=== PATIENT | male | born 1970 | race Caucasian/White ===

== ENCOUNTER 2025-05-22 14:21 | Emergency (ER) | payer MEDICARE, SELFPAY ==
--- OUTSIDE RECORDS SUMMARY | 2025-04-14 13:40 | XMS_ITS | Encounter Summary ---
Author Organization [facility] Address [address] [facility] [place] [address] Care Team Providers Care Assistant Real Estate Manager Name Role Phone Cosme Wayne MD Unavailable [phone] Cosme Wayne MD Primary Care Provider + Deshawn Veloz MD Unavailable Deshawn Veloz MD Unavailable Mindy Harrison MD Unavailable Karine Rangel [facility] Unavailable [phone] Karine Rangel Nicolle Unavailable [phone] Devon Hernandez MD Unavailable [phone] Mary Trent PA-C Unavailable [phone] Cal Zelaya PA-C Unavailable [phone] Mary Trent PA-C Unavailable [phone] Cal Zelaya PA-C Unavailable [phone] Reason for Visit * Reason Comments Oncology Clinic Visit * Consultation (Routine: Next available opening) - Pending Review Specialty Diagnoses / Procedures Referred By Chidi harris Referred To Contact Medical Oncology Diagnoses Wernicke encephalopathy Bariatric surgery status Mary Trent PA-C [address] [facility] [address] [place] [address] Phone: tel: fax: Referral ID Status Reason Start Date Expiration Date V isits Requested Visits Authorized [id number] Pending Review 12/22/2024 12/22/2025 1 1 Encounter Details Date Type Department Care Team (Latest Contact Info) Description 04/14/2025 1:40 PM CDT Oncology Visit [facility] [place] [address], [address] [facility] [place] [phone] Mary Trent, PAAllisonC [address] [place] [address] Devon Hernandez MD [address] [place] [address] Anemia, unspecified type (Primary Dx); Wernicke encephalopathy; Bariatric surgery status; Hypomagnesemia Social History Tobacco Use Types Packs/Day Years Used Date Smoking Tobacco: Former Cigarettes 0.5 17 0 10/21/1982 - 10/21/1999 Smokeless Tobacco: Never Tobacco Cessation:Counseling Given: Not Answered Alcohol Use Standard Drinks/Week Comments Not Currently 0 (1 standard drink = 0.6 oz pur e alcohol) Quit begingin of 2024 Social Connection and Isolation Panel [NHANES] A nswer Date Recorded Frequency of Communication with Friends and Fami ly Not on file 12/04/2023 How often do you get togethe r with friends or relatives? Three times a week 12/04/2023 Attends U[employer] Services Not on file 12/04 Active Member of Clubs or Organizations Not on f ile 12/04/2023 Attends Club or Organization Meetings Not on abad e 12/04/2023 Marital Status Not on file 12/04/2023 PHQ-2 Answer Date Recorded PHQ-2 Score 2 02/11/2025 [facility] [place] of Occupat ional Health - Occupational Stress Questionnaire Answer Date Recorded Do you feel stress - tense, restless, nervous, or anxious, or unable to sleep at night because your mind is troubled all the time - these days? Only a little 12/04/2023 Exercise Vital Sign Answer Date Recorde d On average, how many days pe r week do you engage in moderate to strenuous exercise (like a brisk walk)? 1 day 12/04/2023 On average, how many minutes do you engage in exercise at this level? 10 min 12/04/2023 Adolescent Education Answer Date Record ed Getting School Help Needed Not on file 07/20 Food Insecurity Answer Date Recorded Within the past 12 months, d id you worry that your food would run out before you got money to buy more? No 11/29/2024 Within the past 12 months, d id the food you bought just not last and you didn t have money to get more? No 11/29/2024 Housing Stability Answer Date Recorded Do you have housing? (Elías g is defined as stable permanent housing and does not include staying outside in a car, in a tent, in an abandoned building, in an overnight half-way, or couch-surfing.) Yes 11/29/2024 Are you worried about losing your housing? No 11/29/2024 Financial Resource Strain Answer Date R ecorded Within the past 12 months, h ave you or your family members you live with been unable to get utilities (heat, electricity) when it was really needed? No 11/29/2024 Transportation Needs Answer Date Record ed Within the past 12 months, h as lack of transportation kept you from medical appointments, getting your medicines, non-medical meetings or appointments, work, or from getting things that you need? No 11/29/2024 Interpersonal Safety Answer Date Record ed Do you feel physically and e motionally safe where you currently live? Yes 11/29/2024 Within the past 12 months, h ave you been hit, slapped, kicked or otherwise physically hurt by someone? No 11/29/2024 Within the past 12 months, h ave you been humiliated or emotionally abused in other ways by your partner or ex-partner? No 11/29/2024 Sex and Gender Information Value Date Recorded Sex Assigned at Male 07/22/2021 2:30 PM CDT Legal Sex Male 3:12 AM SUPPLY REQUIREMENTS OFFICER Gender Identity Male 07/22/2021 2:30 PM CDT Sexual Orientation Straight 07/22/2021 2: 30 PM CDT documented as of this encounter Last Filed Vital Signs Vital Sign Reading Time Taken Comments Blood Pressure 135/92 04/14/2025 1:37 PM CDT Pulse 86 04/14/2025 1:37 PM CDT Temperature - - Respiratory Rate 16 04/14/2025 1:37 PM CDT Oxygen Saturation 97% 04/14/2025 1:37 PM CDT Inhaled Oxygen Concentration - - Weight 101.9 kg (224 lb 9.6 oz) 04/14/2025 1:37 PM CDT Height 182.9 cm (6') 04/14/2025 1:37 PM CDT Body Mass Index 30.46 04/14/2025 1:37 PM CDT documented in this encounter Patient Instructions * Patient Instructions* Devon Hernandez MD - 04/14/2025 1:40 PM CDT -Labs today. -Virtual visit in 1-2 weeks. documented in this encounter Progress Notes * Emely Tim MA - 04/14/2025 1:40 PM CDT Oncology Rooming Note April 14, 2025 1:39 PM Neri Zuñiga is a 54 year old male who presents for: Chief Complaint Patient presents with Oncology Clinic Visit Initial Vitals: BP (!) 135/92 Pulse 86 Resp 16 Ht 1.829 m (6') Wt 101.9 kg (224 lb 9.6 oz) SpO2 97% BMI 30.46 kg/m?? Estimated body mass index is 30.46 kg/m?? as calculated from the following: Height as of this encounter: 1.829 m (6'). Weight as of this encounter: 101.9 kg (224 lb 9.6 oz). Body surface area is 2.28 meters squared. No Pain (0) Comment: Data Unavailable No LMP for male patient. Allergies reviewed: Yes Medications reviewed: Yes Medications: Medication refills not needed today. Pharmacy name entered into [facility]: [id number] - [place], [place] - [address] [facility] [place] [address] Frailty Screening: Is the patient here for a new oncology consult visit in cancer care? 2. No PHQ9: Did this patient require a PHQ9?: No Emely Tim MA * Devon Hernandez MD - 04/14/2025 1:40 PM CDT This consult has been requested by Mary Trent PA-C for anemia. Mr. Zuñiga is a 54-year-old gentleman with multiple medical problems including hypertension, peripheral neuropathy and depression. Patient also has history of gastric bypass surgery. Patient has been having his labs monitored. He has been anemic for last few years. Investigations are reviewed and summarized below. 1. On 07/10/2017, hemoglobin of 11.6. Normal MCV. - Since then multiple CBC have revealed anemia. 2. On 12/17/2024: - Low iron of 59. Normal iron saturation index of 39%. - Elevated ferritin of 781. - Normal folate - Elevated vitamin B12 - Elevated vitamin B6 3. On 03/02/2025: - Hemoglobin mildly low at 11.3. Normal WBC and platelet. Normal MCV of 93. - CMP is essentially normal. Normal calcium and creatinine. Normal LFT. 4. CT abdomen and pelvis on 08/30/2024 revealed normal spleen. There is hepatic steatosis. Patient denies bleeding from any site. Patient has mild generalized weakness. He can do activities of daily living. He gets migraine headaches. Occasional dizziness. No chest pain. No shortness of breath at rest. Noabdominal pain. No nausea or vomiting. No urinary or bowel complaints. Patient has peripheral neuropathy. He also has restless leg. He follows up with neurologist. Allergies: Reviewed. Medications: Reviewed. Past medical history: - Peripheral neuropathy - Restless leg syndrome - Depression - Esophageal reflux - Hypertension - Migraine headaches. - Warnicke encephalopathy - Osteoarthritis - C-spine surgery - Gastric bypass surgery. - GERD - Shoulder surgery - Hepatic steatosis. Social history: - He quit alcohol in November 2024. Exam: He is alert and oriented x 3. Not in any distress. Vitals: Reviewed Rest of system not examined. Labs: Reviewed. Assessment: 1. A 54-year-old gentleman with mild chronic normocytic anemia. 2. Multiple other medical problems including peripheral neuropathy, hypertension and depression. Recommendation: - Labs today. - Continue with multivitamin - Virtual visit in 1 to 2 weeks. Discussion: 1. Labs were reviewed with the patient. Patient has chronic normocytic anemia. Different causes of normocytic anemia reviewed. It can be seen with blood loss, renal disease, anemia of chronic diseaseor developing myelodysplastic syndrome. Patient denies any bleeding. He does not have renal disease. He does have multiple medical problems which can cause anemia of chronic disease. Patient had gastric bypass surgery. Because of that, he is at risk of malabsorption which can causeanemia. Patient is on multivitamin and other supplements. Patient was an alcoholic. He quit alcohol in November 2024. Heavy alcohol use also causes anemia. 2. Complications of anemia reviewed. Explained to the patient that his anemia is mild and should not cause any problem. 3. Discussed regarding further workup. Will get some labs today. If he has iron deficiency, will consider GI workup. At this time, no need for any bone marrow biopsy. If his anemia progressively getsworse and hemoglobin consistently remains below 10, bone marrow biopsy will be considered to rule out MDS. 4. He and his had few questions which were all answered. I will see him in next 1 to 2 weeks to review the labs. Thanks for the consult. Total visit time of 45 minutes. Time spent in today's visit, review of chart/investigations today and documentation today. documented in this encounter Plan of Treatment Upcoming Encounters Date Type Department Care Team (Late st Contact Info) Description 05/28/2025 1:40 PM CDT Therapy Visit [facility] [id number] [place] [address] [address] [place] [phone] Mary Trent PA-C [address] [place], [place] [address] [place] [address] [facility] [address] [place], [place] [address] 06/04/2025 1:40 PM CDT Therapy Visit [place] [id number] [facility] [address] [place] [phone] Mary Trent PA-C [address] [place] [address] [place] [address] [place] [id number] 07/01/2025 10:30 AM CDT Virtual Visit [facility] [place] [address] [facility] [address] [place] [phone] Mary Trent PA-C [address] [place] [id number] 07/01/2025 11:00 AM CDT Virtual Visit [facility] [place] [address] [facility] [address] [place] [phone] Christina Paz, RD, [place] [address] [place] [id number] 09/20/2025 10:00 AM SUPPLY REQUIREMENTS OFFICER Office Visit [facility] - [place] [address] [facility], [address] [place] [phone] Deshawn Veloz MD [address] [place] [address] documented as of this encounter Procedures Procedure Name Priority Date/Time Associated Diagnosis Comments BLOOD MORPHOLOGY PATHOLOGIST REVIEW Routine 04/14/2025 2:29 PM CDT Anemia, unspecified type MORPHOLOGY TRACKING Routine 04/14/2025 2 :28 PM CDT Anemia, unspecified type BLOOD MORPHOLOGY PATHOLOGIST REVIEW Routine 04/14/2025 2:28 PM CDT Anemia, unspecified type CBC WITH PLATELETS AND DIFFERENTIAL Routine 04/14/2025 2:28 PM CDT Anemia, unspecified type LACTATE DEHYDROGENASE Routine 04/14/2025 2:28 PM CDT Anemia, unspecified type SOLUBLE TRANSFERRIN RECEPTOR Routine 04/14/2025 2:28 PM CDT Anemia, unspecified type RETICULOCYTE COUNT Routine 04/14/2025 2: 28 PM CDT Anemia, unspecified type MAGNESIUM Add-On 04/14/2025 2:28 PM CDT Anemia, unspecified type Hypomagnesemia IRON AND IRON BINDING CAPACITY Routine 04/14/2025 2:28 PM CDT Anemia, unspecified type HAPTOGLOBIN Routine 04/14/2025 2:28 PM CDT Anemia, unspecified type FERRITIN Routine 04/14/2025 2:28 PM CDT Anemia, unspecified type documented in this encounter Results * Bld morphology pathology review (04/14/2025 2:29 PM CDT) Final Diagnosis Slight anemia, normochromic normocytic. 04/15/2025 3:12 PM [facility] at 1512 CDT Clinical Information Anemia 04/15/2025 3:12 PM [facility] Peripheral Smear The red blood cells appear normochromic. Rouleaux formation does not appear increased. Polychromasia does not appear increased. Poikilocytosis appears mild and nonspecific. Platelets are well granulated. Lymphocytes are predominantly small with cytologically mature chromatin and appear overall polymorphous. Neutrophils contain normal cytoplasmic granulation and unremarkable nuclear morphology. There is no dysplasia and no circulating blasts are seen. 04/15/2025 3:12 PM [facility] Peripheral Hematologic Data Latest Reference Range & Units 04/14/25 14:28 WBC 4.0 - 11.0 10e3/uL 6.6 Hemoglobin 13.3 - 17.7 g/dL 12.4 (L) Hematocrit 40.0 - 53.0 % 37.7 (L) Platelet Count 150 - 450 10e3/uL 207 RBC Count 4.40 - 5.90 10e6/uL 4.07 (L) MCV 78 - 100 fL 93 MCH 26.5 - 33.0 pg 30.5 MCHC 31.5 - 36.5 g/dL 32.9 RDW 10.0 - 15.0 % 14.2 % Neutrophils % 63 % Lymphocytes % 19 % Monocytes % 12 % Eosinophils % 4 % Basophils % 2 % Immature Granulocytes % 0 NRBC/W <1 /100 0 Absolute Neutrophil 1.6 - 8.3 10e3/uL 4.2 Absolute Lymphocytes 0.8 - 5.3 10e3/uL 1.3 Absolute Monocytes 0.0 - 1.3 10e3/uL 0.8 Absolute Eosinophils 0.0 - 0.7 10e3/uL 0.2 Absolute Basophils 0.0 - 0.2 10e3/uL 0.1 Absolute Immature Granulocytes <=0.4 10e3/uL 0.0 Absolute NRBCs 10e3/uL 0.0 % Retic 0.5 - 2.0 % 1.4 Absolute Retic 0.025 - 0.095 10e6/uL 0.057 (L): Data is abnormally low 04/15/2025 3:12 PM [facility] Performing Labs The technical component of this testing was completed at [facility], [facility] and [facility] 04/15/2025 3:12 PM [facility] Blood STRUCTURE OF LEFT UPPER LIMB / Unknown Venipuncture / Unknown 04/14/2025 2:29 PM CDT 04/14/2025 2:36 PM T Comment:CBC with platelets d ifferential and Reticulocyte count should be ordered concurrently with the peripheral smear (all tests performed on the same tube of blood). The concurrent CBC with platelets differential and Reticulocyte count are incorporated into the final peripheral smear report and are necessary for interpretation. us Birendra Hernandez MD LAB - BEAKER AP Final Result [facility] Pathology Lab [address] Lab (1st floor, no room number) [place] [address] * Magnesium (04/14/2025 2:28 PM CDT) Magnesium 1.8 1.7 - 2.3 mg/dL 04/14/2025 3:13 PM CDT LABORATORY Blood STRUCTURE OF LEFT UPPER LIMB / Unknown Venipuncture / Unknown 04/14/2025 2:28 PM CDT 04/14/2025 2:36 PM CDT Devon Hernandez MD LAB - BLOOD ORDERABLES Final R esult LABORATORY [facility] [address] 1[address] floor, [address] [place] [address], [facility] [phone] * Morphology Tracking (04/14/2025 2:28 PM CDT) Blood STRUCTURE OF LEFT UPPER LIMB / Unknown Venipuncture / Unknown 04/14/2025 2:28 PM CDT 04/14/2025 2:36 PM CDT Devon Hernandez MD LAB - BLOOD ORDERABLES Final R esult LABORATORY [facility] [address] 1[address] floor, [address] [place] [address], [facility] [phone] * Reticulocyte count (04/14/2025 2:28 PM CDT) % Reticulocyte 1.4 0.5 - 2.0 % 04/14/2025 2:39 PM CDT LABORATORY Absolute Reticulocyte 0.057 0.025 - 0.095 10e6/uL 04/14/2025 2:39 PM CDT LABORATORY Blood STRUCTURE OF LEFT UPPER LIMB / Unknown Venipuncture / Unknown 04/14/2025 2:28 PM CDT 04/14/2025 2:36 PM CDT us Devon Hernandez MD LAB - BLOOD ORDERABLES Final R esult LABORATORY [facility] [address] 1[address] floor, [address] [place] [address], [facility] [phone] * (ABNORMAL) CBC with platelets and differential (04/14/2025 2:28 PM CDT) WBC Count 6.6 4.0 - 11.0 10e3/uL 04/14/2025 2:39 PM CDT LABORATORY RBC Count 4.07(L) 4.40 - 5.90 10e6/uL 04/14/2025 2:39 PM CDT LABORATORY Hemoglobin 12.4(L) 13.3 - 17.7 g/dL 04/14/2025 2:39 PM CDT LABORATORY Hematocrit 37.7(L) 40.0 - 53.0 % 04/14/2025 2:39 PM CDT LABORATORY MCV 93 78 - 100 fL 04/14/2025 2:39 PM CDT LABORATORY MCH 30.5 26.5 - 33.0 pg 04/14/2025 2:39 PM CDT LABORATORY MCHC 32.9 31.5 - 36.5 g/dL 04/14/2025 2:39 PM CDT LABORATORY RDW 14.2 10.0 - 15.0 % 04/14/2025 2:39 PM CDT LABORATORY Platelet Count 207 150 - 450 10e3/uL 04/14/2025 2:39 PM CDT LABORATORY % Neutrophils 63 % 04/14/2025 2:39 PM CDT LABORATORY % Lymphocytes 19 % 04/14/2025 2:39 PM CDT LABORATORY % Monocytes 12 % 04/14/2025 2:39 PM CDT LABORATORY % Eosinophils 4 % 04/14/2025 2:39 PM CDT LABORATORY % Basophils 2 % 04/14/2025 2:39 PM CDT LABORATORY % Immature Granulocytes 0 % 04/14/2025 2:39 PM CDT LABORATORY NRBCs per 100 WBC 0 <1 /100 025 2:39 PM CDT LABORATORY Absolute Neutrophils 4.2 1.6 - 8.3 10e3/uL 04/14/2025 2:39 PM CDT LABORATORY Absolute Lymphocytes 1.3 0.8 - 5.3 10e3/uL 04/14/2025 2:39 PM CDT LABORATORY Absolute Monocytes 0.8 0.0 - 1.3 10e3/uL 04/14/2025 2:39 PM CDT LABORATORY Absolute Eosinophils 0.2 0.0 - 0.7 10e3/uL 04/14/2025 2:39 PM CDT LABORATORY Absolute Basophils 0.1 0.0 - 0.2 10e3/uL 04/14/2025 2:39 PM CDT LABORATORY Absolute Immature Granulocytes 0.0 <=0.4 10e3/uL 04/14/2025 2:39 PM CDT LABORATORY Absolute NRBCs 0.0 10e3/uL 04/14/2025 2:39 PM CDT LABORATORY Blood STRUCTURE OF LEFT UPPER LIMB / Unknown Venipuncture / Unknown 04/14/2025 2:28 PM CDT 04/14/2025 2:36 PM CDT us Devon Hernandez MD LAB - BLOOD ORDERABLES Final R esult LABORATORY [facility] [address] 1[address] floor, [address] [place] [address], [facility] [phone] * Lactate Dehydrogenase (04/14/2025 2:28 PM CDT) Lactate Dehydrogenase 166 0 - 250 U/L 04/14/2025 3:13 PM CDT LABORATORY Blood STRUCTURE OF LEFT UPPER LIMB / Unknown Venipuncture / Unknown 04/14/2025 2:28 PM CDT 04/14/2025 2:36 PM CDT us Devon Hernandez MD LAB - BLOOD ORDERABLES Final R esult LABORATORY [facility] [address], [address] [place] [address], [facility] [phone] * Haptoglobin (04/14/2025 2:28 PM CDT) Haptoglobin 165 30 - 200 mg/dL 04/14/2025 6:03 PM CDT U LABORATORY Blood STRUCTURE OF LEFT UPPER LIMB / Unknown Venipuncture / Unknown 04/14/2025 2:28 PM CDT 04/14/2025 2:36 PM CDT Devon Hernandez MD LAB - BLOOD ORDERABLES Final R esult U LABORATORY [facility] [address] [facility], [address] [place] [address], [facility] * Soluble transferrin receptor (04/14/2025 2:28 PM CDT) Soluble Transferrin Receptor 3.4 2.2 - 5.0 mg/L 04/16/2025 1:40 PM CDT [facility] Comment: INTERPRETIVE INFORMATION: Soluble Transferrin Receptor People of descent and those residing at 5200 feet (1600 meters) above sea level were found to have a 6% higher normal value. These differences were additive. Reference intervals have not been established for females, patients under 18 years of age, and recent or frequent blood donors. Serum soluble transferrin receptor increases in iron deficiency and is usually unaffected by chronic disease states. In general, to increase sensitivity and specificity, the measurement of serum soluble transferrin receptor should be performed in combination with other tests of iron status, including ferritin, TIBC, and serum iron. (See Table Below). Tests for Iron Anemia of Combined Iron Changes Def. Chronic Def. and anemia Analyte in: Anemia Disease of Chronic Dz ------- -------- ------ --------- Ferritin Fe Stores Low High Normal or High TIBC Fe Status High Low Normal or High Serum Fe Fe Status Low Low Low sTfR Fe Status High Normal High Performed By: [employer] [address] [place] [address] Petroleum Inspector: Ryan Pretty MD, PhD CLIA Number: [id number] Blood STRUCTURE OF LEFT UPPER LIMB / Unknown Venipuncture / Unknown 04/14/2025 2:28 PM CDT 04/14/2025 2:36 PM CDT Devon Hernandez MD LAB - BLOOD ORDERABLES Final R esult [employer] [address] [place] [phone], [facility] [phone] * Ferritin (04/14/2025 2:28 PM CDT) Ferritin 304 31 - 409 ng/mL 04/14/2025 6:12 PM CDT LABORATORY Blood STRUCTURE OF LEFT UPPER LIMB / Unknown Venipuncture / Unknown 04/14/2025 2:28 PM CDT 04/14/2025 2:36 PM CDT Devon Hernandez MD LAB - BLOOD ORDERABLES Final R esult LABORATORY [facility] [address] [facility], [address] [phone] * (ABNORMAL) Iron and iron binding capacity (04/14/2025 2:28 PM CDT) Iron 140 61 - 157 ug/dL 04/14/2025 3:13 PM CDT LABORATORY Iron Binding Capacity 251 240 - 430 ug/dL 04/14/2025 3:13 PM CDT LABORATORY Iron Sat Index 56(H) 15 - 46 % 04/14/2025 3:13 PM CDT LABORATORY Blood STRUCTURE OF LEFT UPPER LIMB / Unknown Venipuncture / Unknown 04/14/2025 2:28 PM CDT 04/14/2025 2:36 PM CDT us Devon Hernandez MD LAB - BLOOD ORDERABLES Final R esult [facility] [address] floor, [address] [place] [address], [facility] [phone] documented in this encounter Visit Diagnoses Diagnosis Anemia, unspecified type- Primary Wernicke encephalopathy Other and unspecified manifestations of thiamine deficiency Bariatric surgery status Hypomagnesemia Disorders of magnesium metabolism documented in this encounter Additional Health Concerns Assessment Noted Time PHQ-9 Depression Total Score: 8 02/12/20 8:47 AM CDT documented as of this encounter Care Teams Assistant Real Estate Manager Relationship Specialty Start Date End Date Cosme Wayne MD [address] [place] [address] PCP - General Internal Medicine 08/27/22 Cosme Wayne MD [address] [place] [address] Assigned PCP 08/13/21 Deshawn Veloz MD [address] [address] Neurology 09/24/22 Deshawn Veloz MD [address] [place] [address] Assigned Neuroscience Provider 10/13/22 Mindy Harrison MD [address] [address] Nephrology 04/22/23 Karine Rangel, [facility] [address] [place] [address] Pharmacist Pharmacist Fence Gate Assembler 09/07/24 Karine Rangel RPH [address] [place] [address] Assigned MTM Pharmacist 09/12/24 Devon Hernandez MD [address] [place] [id number] Hematology & Oncology 12/23/24 Mary Trent PA-C [address] [place] [address] Physician Crane Crew Supervisor Bariatric 12/23/24 Cal Zelaya PA-C [address] [place], [place] [address] Physician Crane Crew Supervisor Gastroenterology 12/28/24 Mary Trent PA-C [address] [place] [id number] Assigned Surgical Provider 01/10/25 Cal Zelaya PA-C [address] [place], [place] [address] Assigned Gastroenterology Provider 03/12/25 documented as of this encounter
--- OUTSIDE RECORDS SUMMARY | 2025-04-30 09:00 | XMS_ITS | Encounter Summary ---
Author Organization [facility] Address [address] [place] [address] Care Team Providers Care Operating Room Assistant Name Role Phone Cosme Wayne MD Unavailable [phone] Cosme Wayne MD Primary Care Provider + Deshawn Veloz MD Unavailable Deshawn Veloz MD Unavailable Mindy Harrison MD Unavailable Karine Rangel [facility] Unavailable [phone] Karine Rangel Nicolle Unavailable [phone] Devon Hernandez MD Unavailable [phone] Mary Trent-C Unavailable [phone] Cal Zelaya-Baldemar Unavailable [phone] Mary Trent-Baldemar Unavailable [phone] Cal Zelaya-Baldemar Unavailable [phone] Reason for Referral * Rehab Therapy Physical Therapy (Routine: Next available opening) - Authorized Specialty Diagnoses / Procedures Referred By Chidi harris Referred To Contact Physical Therapy Diagnoses Class 1 obesity with serious comorbidity and body mass index (BMI) of 30.0 to 30.9 in adult, unspecified obesity type [address] [address] Phone: tel: Referral ID Status Reason Start Date Expiration Date V isits Requested Visits Authorized [id number] Authorized 05/07/2025 07/16/2025 8 8 Question Answer Course of Action: Evaluation and Treatment Specialty Services: Get Moving Program Patient Scheduling Instructions: [facility] will call you to coordinate your care as prescribed by your provider. If you don't hear from a international representative within 2 business days, please call . Comments Please be aware that coverage of these services is subject to the terms and limitations of your health insurance plan. Call member services at your health plan with any benefit or coverage questions. [facility] will call you to coordinate your care as prescribed by your provider. If you don't hear from a international representative within 2 business days, please call . Reason for Visit * Reason Comments RECHECK Encounter Details Date Type Department Care Team (Late st Contact Info) Description 04/30/2025 9:00 AM CDT Office Visit [facility] [address] [phone] Mary Trent PA-C [address] [place] [address] [id number] Class 1 obesity without serious comorbidity with body mass index (BMI) of 30.0 to 30.9 in adult, unspecified obesity type (Primary Dx) Social History Tobacco Use Types Packs/Day Years Used Date Smoking Tobacco: Former Cigarettes 0.5 17 0 10/21/1982 - 10/21/1999 Smokeless Tobacco: Never Alcohol Use Standard Drinks/Week Comments Not Currently 0 (1 standard drink = 0.6 oz pur e alcohol) Quit begingin of 2024 Social Connection and Isolation Panel [NHANES] A nswer Date Recorded Frequency of Communication with Friends and Fami ly Not on file 12/04/2023 How often do you get togethe r with friends or relatives? Three times a week 12/04/2023 Attends [employer] Services Not on file 12/04 Active Member of Clubs or Organizations Not on f ile 12/04/2023 Attends Club or Organization Meetings Not on abad e 12/04/2023 Marital Status Not on file 12/04/2023 PHQ-2 Answer Date Recorded PHQ-2 Score 2 02/11/2025 [facility] [place] of Occupat ional Health - Occupational Stress [...] Answer Date Recorded Do you have housing? 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 Gender Identity Male 07/22/2021 2:30 PM CDT Sexual Orientation Straight 07/22/2021 2: 30 PM CDT documented as of this encounter Last Filed Vital Signs Vital Sign Reading Time Taken Comments Blood Pressure 125/84 04/30/2025 8:53 AM CDT Pulse 54 04/30/2025 8:53 AM CDT Temperature - - Respiratory Rate - - Oxygen Saturation 91% 04/30/2025 8:53 AM CDT Inhaled Oxygen Concentration - - Weight 101.5 kg (223 lb 12.8 oz) 04/30/2025 8:53 AM CDT Height 182.9 cm (6') 04/30/2025 8:53 AM CDT Body Mass Index 30.35 04/30/2025 8:53 AM CDT documented in this encounter Patient Instructions * Patient Instructions* Mary Trent PA-C - 04/30/2025 9:00 AM CDT Nice to talk with you today. Below is the plan discussed.- Mary Trent PA-C Pt Instructions: Follow-up with dietitian team to continue working on eating patterns. Get Moving referral placed - they will call you to schedule. Start Naltrexone. Directions: Take 1/2 tab in the am for a week. If tolerating, increase to 1/2 tablet twice daily. 4. Repeat liver tests 1-2 months after starting naltrexone. Labs ordered. Please call [phone] to set up a lab appt. 5. Continue 1000 mg metformin daily with food. 6. Work closely with the dietitians for eating patterns. Goals: Focus on healthy food choices - prioritizing protein and veggies in your meals. I recommend eating every 4-6 hours to reduce the risk of low blood sugars and try to minimize snacking between meals. Stay well hydrated though the day as well. Great job with exercising - please continue to invest in yourself with regular exercise. Continue to strive for a range for 150-300 minutes of exercise for weight maintenance and incorporating strength training twice-three times a week to help preserve muscle! Follow up: Call [phone] to schedule next visit in next available in 2-4 months with me - if unable to getin earlier see TONYA Gibson in 2 months. Be in touch on Mychart for refills/concerns between visits Strength Training Strength training is exercise that involves your own body weight or equipment to build muscle, endurance, and strength. Increasing muscle helps increase your metabolism. Cernium for Strength training [email or web address] Muscle Conditionin Exercises Resistance Training with Free Weights: 3 Exercises Resistance Training with Surgical Tubin Exercises Seated Exercises for Arms and Legs: 11 Exercises Stretchin Exercises Additional Outside Sources No Equipment Home Exercise Lists from [facility] [employer] https://www.CounterTack.[employer]/public/upload/files/general/[email or web address]_FV_CK_GbNvgo_Irnyrf ts_Strength.pdf Strength training YouTube workouts https://www.BNY Mellon.com/user/KozakSportsPerform Guide to Beginning Strength Training https://www.Neon Mobile.com/fitness/[email or web address]/rhlikranw-rpryt-swbsjp-training/ Naltrexone Naltrexone is a medication that is used most often to help people who are troubled by dependence onprescription pain killers or alcohol. It has also been found to help with weight loss. Although it's not currently FDA approved for weight loss, it has been used safely for a number of years to help people who are carrying extra weight. Just how Naltrexone helps with weight loss has not been exactly determined. It seems to work by quieting down brain signals related to strong food cravings. Many of our patients use the word addiction to describe their feelings and constant thoughts about food. It makes sense then to treat the feeling of dependence on food, outside of real hunger, with a medication designed to help with other sorts of dependence. Our patients on Naltrexone find that they: >feel less interest in food >think less about food and eating and have more time to think of other things >find it easier to push the plate away >have an easier time eating less For some of our patients, these feelings are very immediate. Other patients, don't feel much of a change but find they've lost weight. Like all weight loss medications, Naltrexone works best when youhelp it work. This means: 1. Having less tempting high calorie (fattening) food around the house or office. (For people with strong cravings this is very important.) 2. Staying away from situations or people that may trigger your cravings . 3. Eating out only one time or less each week. 4. Eating your meals at a table with the TV or computer off. Side-effects. Naltrexone is generally well tolerated. The main side-effect we see is nausea or a woozy feeling. A small number of people feel quite ill. Most people have a mild reaction and some people have no reaction at all. The good news is that this feeling does go away. In order to avoid nausea, please start the medication with half a pill for the first few days. Go on to a full pill if you are feeling well. If you are nauseated on 1/2 a pill it is okay to cut back to 1/4 pill ( a very small amount). Take this for a couple of days and work your way back up to a 1/2 pill and then a whole pill. Taking the medication at night or with food to start also may help prevent the feeling of nausea. WARNING: This medication blocks the action of opioid type pain medications. If you routinely take narcotic pain medication like Codeine, Oxycontin,Percocet,Morphine,Dilaudid or Methodone, do not take this until you have talked with weight management staff. 2. If you are planning surgery you should stop Naltrexone 4 days prior to the surgery. 3. If you have an injury that requires pain medication, make sure the health care staff knows you take Naltrexone. For any questions/concerns contact [facility] [phone] documented in this encounter Progress Notes * Mary Trent PA-C - 04/30/2025 9:00 AM CDT 04/30/2025 Return Medical Weight Management Note Neri Zuñiga : 1970 Assessment & Plan Problem List Items Addressed This Visit Class 1 obesity without serious comorbidity and body mass index (BMI) of 30.0 to 30.9 in adult, unspecified obesity type - Primary Relevant Medications naltrexone (DEPADE/REVIA) 50 MG tablet AOM Considerations notes, ROS needed per agent if pursued : Phentermine: reduced seizure threshold/hx EtOH dependency/mental health change considerations Topiramate: 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 02/2025 recommended PCP/surg f/up for gallstones. He reports vomiting w/prior use - but also using alcoholat that time so unclear if related Naltrexone: no significant interactions seens at this time - reviewed off label addition 04/2025 including narcotic considerations and liver monitoring and pt agreeable. Wellbutrin: avoid w/hx of EtOH use Metformin: using currently Contrave: Qsymia: PATIENT INSTRUCTIONS: Pt Instructions: Follow-up with dietitian team to continue working on eating patterns. Get Moving referral placed - they will call you to schedule. Start Naltrexone. Directions: Take 1/2 tab in the am for a week. If tolerating, increase to 1/2 tablet twice daily. 4. Repeat liver tests 1-2 months after starting naltrexone. Labs ordered. Please call [phone] to set up a lab appt. 5. Continue 1000 mg metformin daily with food. 6. Work closely with the dietitians for eating patterns. Goals: Focus on healthy food choices - prioritizing protein and veggies in your meals. I recommend eating every 4-6 hours to reduce the risk of low blood sugars and try to minimize snacking between meals. Stay well hydrated though the day as well. Great job with exercising - please continue to invest in yourself with regular exercise. Continue to strive for a range for 150-300 minutes of exercise for weight maintenance and incorporating strength training twice-three times a week to help preserve muscle! Follow up: Call [phone] to schedule next visit in next available in 2-4 months with me - if unable to getin earlier see MTM pharmD in 2 months. Be in touch on Mychart for refills/concerns between visits 34 minutes spent on the date of the encounter doing chart review, history and exam, result review, counseling, developing plan of care, documentation, and further activities as noted The longitudinal plan of care for the diagnosis(es)/condition(s) as documented were addressed during this visit. Due to the added complexity in care, I will continue to support Tony in the subsequentmanagement and with ongoing continuity of care. INTERVAL HISTORY: Tony returns for medical weight management follow up. Last seen on 01/06/25 w/myself and plan for continuing metformin. Plan to continue vitamins w/lab monitoring and working with RD team. 02/09/24 MTM continue 1,000 mg metformin and vitamins. From December visit: [facility] Bariatric vitamin with 18 mg iron-AM 600 mg calcium -BID - 6 AM/ 6 PM 1000 mcg Vitamin B-12 100 mg vitamin b-1 daily from PCP Folate from PCP magnesium glycinate up to 400 mg After labs added magnesium glycinate up to 400 mg - 04/14/25 magnesium WNL He is staying off alcohol - states no cravings and doing well there. Eating patterns: Getting up 9-10 am. Can be variable when to start eating. Usually eating twice daily. Ham/turkey sudanese cheese and some chips or sometimes cheddar. When at [employer] will have eggs in the mornings. Some veggies when at [employer]. [employer] does a special program to reverse diabetes. Personal goal would be getting down to 200 lbs or 210 lbs. Not doing any exercising/strength training right now - hard with feet/neuropathy. Helping out with [facility] in [place]. WEIGHT METRICS: Body mass index is 30.35 kg/m??. Current Weight: 223 lb 12.8 oz (101.5 kg) Last Visits Weight: 224 lb 9.6 oz (101.9 kg) Initial Weight (lbs): 246 lbs (updated starting weight for start of program in 2023) Cumulative weight loss (lbs): 22.2 Weight Loss Percentage: 9.02% Wt Readings from Last 10 Encounters: 04/30/25 223 lb 12.8 oz (101.5 kg) 04/14/25 224 lb 9.6 oz (101.9 kg) 03/02/25 226 lb 9.6 oz (102.8 kg) 02/11/25 231 lb (104.8 kg) 02/08/25 222 lb (100.7 kg) 01/31/25 227 lb 11.8 oz (103.3 kg) 01/31/25 227 lb 8 oz (103.2 kg) 01/12/25 224 lb 12.8 oz (102 kg) 01/06/25 215 lb (97.5 kg) 12/17/24 233 lb 14.4 oz (106.1 kg) 04/29/2025 5:23 PM Weight Loss Medication History Reviewed With Patient Which weight loss medications are you currently taking on a regular basis? Metformin Are you having any side effects from the weight loss medication that we have prescribed you? No 04/29/2025 5:23 PM Changes and Difficulties I have made the following changes to my diet since my last visit: Eating more times per day With regards to my diet, I am still struggling with: Nothing I have made the following changes to my activity/exercise since my last visit: None With regards to my activity/exercise, I am still struggling with: Feet LABS: Hemoglobin A1C Date Value Ref Range Status 07/13/2024 4.7 0.0 - 5.6 % Final Comment: Normal <5.7% Prediabetes 5.7-6.4% Diabetes 6.5% or higher Note: Adopted from ADA consensus guidelines. Creatinine Date Value Ref Range Status 03/02/2025 0.93 0.67 - 1.17 mg/dL Final 12/14/2019 0.83 0.66 - 1.25 mg/dL Final GFR Estimate Date Value Ref Range Status 03/02/2025 >90 >60 mL/min/1.73m2 Final Comment: eGFR calculated using 2020 CKD-EPI equation. 12/14/2019 89 >60 mL/min/[1.73_m2] Final Carbon Dioxide Date Value Ref Range Status 12/14/2019 21 20 - 32 mmol/L Final Carbon Dioxide (CO2) Date Value Ref Range Status 03/02/2025 28 22 - 29 mmol/L Final 08/29/2022 29 20 - 32 mmol/L Final Chloride Date Value Ref Range Status 03/02/2025 105 98 - 107 mmol/L Final 08/29/2022 92 (L) 94 - 109 mmol/L Final 12/14/2019 109 94 - 109 mmol/L Final Urea Nitrogen Date Value Ref Range Status 03/02/2025 11.0 6.0 - 20.0 mg/dL Final 08/29/2022 7 7 - 30 mg/dL Final 12/14/2019 11 7 - 30 mg/dL Final ALT Date Value Ref Range Status 03/02/2025 14 0 - 70 U/L Final 12/14/2019 31 0 - 70 U/L Final AST Date Value Ref Range Status 03/02/2025 24 0 - 45 U/L Final 12/14/2019 29 0 - 45 U/L Final Vitamin D Deficiency screening Date Value Ref Range Status 07/12/2017 17 (L) 20 - 75 ug/L Final Comment: Season, race, dietary intake, and treatment affect the concentration of 76-qoyobqs-Dfqetet D. Values may decrease during winter months and increase during summer months. Values 20-29 ug/L may indicate Vitamin D insufficiency and values <20 ug/L may indicate Vitamin D deficiency. Vitamin D determination is routinely performed by an immunoassay specific for 25 hydroxyvitamin D3. If an individual is on vitamin D2 (ergocalciferol) supplementation, please specify 25 OH vitamin D2 and D3 level determination by LCMSMS test VITD23. Vitamin D, Total (25-Hydroxy) Date Value Ref Range Status 12/17/2024 77 (H) 20 - 50 ng/mL Final Comment: indicates supplementation, with increased risk of hypercalciuria 08/24/2022 23 20 - 75 ug/L Final TSH Date Value Ref Range Status 11/28/2024 5.79 (H) 0.30 - 4.20 uIU/mL Final 08/24/2022 1.88 0.40 - 4.00 mU/L Final 09/01/2009 2.79 0.4 - 5.0 mU/L Final BP Readings from Last 6 Encounters: 04/30/25 125/84 04/14/25 (!) 135/92 03/09/25 116/78 03/02/25 123/85 02/11/25 138/89 01/31/25 119/84 Pulse Readings from Last 6 Encounters: 04/30/25 54 04/14/25 86 03/09/25 110 03/02/25 70 02/11/25 83 01/31/25 81 PE: BP 125/84 Pulse 54 Ht 6' (1.829 m) Wt 223 lb 12.8 oz (101.5 kg) SpO2 (!) 91% BMI 30.35 kg/m?? GENERAL: Healthy, alert and no distress EYES: Eyes grossly normal to inspection. RESP: No audible wheeze, cough, or visible cyanosis. No increased work of breathing. SKIN: Visible skin clear. No significant rash, abnormal pigmentation or lesions. NEURO: Mentation and speech appropriate for age. PSYCH: Mentation appears normal, affect normal/bright, judgement and insight intact, normal speech and appearance well-groomed. Sincerely, Mary Trent PA-C documented in this encounter Miscellaneous Notes * Assessment & Plan Note - Mary Trent PA-C - 04/30/2025 10:38 AM CDT Associated Problem(s): Class 1 obesity without serious comorbidity with body mass index (BMI) of 30.0 to 30.9 in adult, unspecified obesity type Maintaining weight. Recommend really continue to work on eating patterns - three meals daily and adding in veggies. Recommend seeing RD for this. Continue 1000 mg metformin daily. Plan to start off label naltrexone with liver monitoring. Get moving referral placed. We reviewed recommendations for muscle conservation including eating three meals daily, good protein intake, and strength training. documented in this encounter Plan of Treatment Upcoming Encounters Date Type Department Care Team (Late st Contact Info) Description 05/28/2025 1:40 PM CDT Therapy Visit [facility] [address] [phone] Mary Trent PA-C [address] [facility] [place] [address] [place] [address] [place] [address] [place] [id number] 06/04/2025 1:40 PM CDT Therapy Visit [facility] [address] [phone] Mary Trent PA-C [address] [facility] [place] [id number] [place] [address] [place] [address] [place] [address] [id number] 07/01/2025 10:30 AM CDT Virtual Visit [facility] [place] [address] [place] [phone] Mary Trent PA-C [address] [facility] [place] [id number] 07/01/2025 11:00 AM CDT Virtual Visit [facility] [place] [id number] [place] [address] [place] [phone] Christina Paz, RD, LD [address] [place] [id number] 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 Office Visit [facility] Neurology [facility] [address] [facility], [address] [place], [place] [phone] Deshawn Veloz MD [address] [place] [address] Scheduled Orders Name Type Priority Associated Diagnoses Orde r Schedule Comprehensive metabolic panel Lab Routine Class 1 obesity without serious comorbidity with body mass index (BMI) of 30.0 to 30.9 in adult, unspecified obesity type Expected: 05/31/2025 (Approximate), Expires: 10/27/2025 Scheduled Referrals Name Type Priority Associated Diagnoses Orde r Schedule Physical Therapy Horticultural Manager Referral Referral Routine: Next available opening Class 1 obesity without serious comorbidity with body mass index (BMI) of 30.0 to 30.9 in adult, unspecified obesity type Expected: 04/30/2025 (Approximate), Expires: 04/30/2026 documented as of this encounter Visit Diagnoses Diagnosis Class 1 obesity without serious comorbidity with body mass index (BMI) of 30.0 to 30.9 in adult, unspecified obesity type- Primary documented in this encounter Additional Health Concerns Assessment Noted Time PHQ-9 Depression Total Score: 8 02/12/20 25 8:47 AM CDT documented as of this encounter Care Teams Operating Room Assistant Relationship Specialty Start Date End Date Cosme Wayne MD [address] [place] [address] PCP - General Internal Medicine 08/27/22 Cosme Wayne MD [address] [place] [address] Assigned PCP 08/13/21 Deshawn Veloz MD [address] [place] [address] Neurology 09/24/22 Deshawn Veloz MD [address] [place] [id number] Assigned Neuroscience Provider 10/13/22 Mindy Harrison MD [address] [place] [id number] Nephrology 04/22/23 Karine Rangel Nicolle [address] [place] [address] [phone] Pharmacist Pharmacist Bolt Sorter 09/07/24 Karine Rangel [facility] [address] [place] [address] [phone] Assigned [place] Pharmacist 09/12/24 Devon Hernandez MD [address] [place] [id number] Hematology & Oncology 12/23/24 Mary Trent PA-C [address] [place] [id number] Physician Layout Man Bariatric 12/23/24 Cal Zelaya PA-C [address] [place] [address] [id number] Physician Layout Man Gastroenterology 12/28/24 Mary Trent PA-C [address] [place] [id number] Assigned Surgical Provider 01/10/25 Cal Zelaya PA-C [address] [place] [address] [phone] Assigned Gastroenterology Provider 03/12/25 documented as of this encounter
--- OUTSIDE RECORDS SUMMARY | 2025-05-05 08:20 | XMS_ITS | Encounter Summary ---
Author Organization [place] Address [address] [facility] [place] [address] Care Team Providers Care Director Of Human Resources Name Role Phone Cosme Wayne MD Unavailable [phone] Cosme Wayne MD Primary Care Provider + Deshawn Veloz MD Unavailable Deshawn Veloz MD Unavailable Mindy Harrison MD Unavailable Karine Rangel [facility] Unavailable [phone] Karine Rangel [facility] Unavailable [phone] Devon Hernandez MD Unavailable [phone] Mary Trent-C Unavailable [phone] Cal Zelaya-C Unavailable [phone] Mary Trent-C Unavailable [phone] Cal Zelaya-C Unavailable [phone] Reason for Visit * Reason Comments RECHECK Encounter Details Date Type Department Care Team (Late st Contact Info) Description 05/05/2025 8:20 AM CDT Virtual Visit [facility] [place] [address], [address] [facility] Medical [facility] [place] [phone] Devon Hernandez MD [address] [place] [address] Anemia, unspecified type (Primary Dx) Social History Tobacco Use [...] relatives? Three times a week 12/04/2023 Attends [employer] Services Not on file 12/04 Active Member of Clubs or Organizations Not on f ile 12/04/2023 Attends Club or Organization Meetings Not on abad e 12/04/2023 Marital Status Not on file 12/04/2023 PHQ-2 Answer Date Recorded PHQ-2 Score 2 02/11/2025 [facility] of Occupat ional Health - Occupational Stress [...] Answer Date Recorded Do you have housing? 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 Gender Identity Male 07/22/2021 2:30 PM CDT Sexual Orientation Straight 07/22/2021 2: 30 PM CDT documented as of this encounter Last Filed Vital Signs Vital Sign Reading Time Taken Comments Blood Pressure - - Pulse - - Temperature - - Respiratory Rate - - Oxygen Saturation - - Inhaled Oxygen Concentration - - Weight 100.7 kg (222 lb) 05/05/2025 7:52 AM CDT Height 182.9 cm (6') 05/05/2025 7:52 AM CDT Body Mass Index 30.11 05/05/2025 7:52 AM CDT documented in this encounter Patient Instructions * Patient Instructions* Devon Hernandez MD - 05/05/2025 8:20 AM CDT - Continue with multivitamin once a day. - Follow-up with PCP and have CBC checked at least once a year. Return to hematology/oncology clinic as needed. documented in this encounter Progress Notes * Devon Hernandez MD - 05/05/2025 8:20 AM CDT Virtual Visit Details Type of service: Video Visit Video Start Time: 8:26 AM Video End Time:8:32 AM Originating Location (pt. Location): Home Distant Location (provider location): On-site Platform used for Video Visit: [employer] HEMATOLOGY HISTORY: Mr. Zuñiga is a gentleman with chronic normocytic anemia. 1. On 07/10/2017, hemoglobin of 11.6. Normal [...] revealed normal spleen. There is hepatic steatosis. 5. On 04/14/2025: - Hemoglobin better at 12.4. Normal WBC, platelet and MCV. Reticulocyte of 1.4%. - Normal soluble transferrin receptor - Normal LDH - Normal haptoglobin - Normal iron and ferritin 6. On 12/10/2023, Cologuard test was negative. Subjective: Mr. Zuñiga is a 54-year-old gentleman who was recently seen for normocytic anemia. Multiple labs were done. Hemoglobin is improved to 12.4. His anemia is secondary to anemia of chronic disease. Patient used to drink a lot. He quit in November 2024. Some of the anemia likely from alcohol use. Patient denies bleeding from any site. Patient has mild generalized weakness. He can do activities of daily living. He gets migraine headaches. Occasional dizziness. No chest pain. No shortness of breath at rest. Noabdominal pain. No nausea or vomiting. No urinary or bowel complaints. Patient has peripheral neuropathy. He also has restless leg. He follows up with neurologist. Labs: Reviewed. Assessment: 1. A 54-year-old gentleman with mild chronic normocytic anemia secondary to anemia of chronic disease. 2. Multiple other medical problems including peripheral neuropathy, hypertension and depression. Plan: - Continue with multivitamin once a day. - Follow-up with PCP and have CBC checked at least once a year. Return to hematology/oncology clinic as needed. Discussion: 1. I had a video visit with the patient. Labs all reviewed. Explained to the patient that his anemia is improving. He is minimally anemic. Anemia is consistent with anemia of chronic disease. Patientused to drink a lot of alcohol. He quit in November 2024. That has also helped with improvement in a nemia. As his anemia is improving, no further workup at this time. 2. Advised the patient to have CBC checked at least once yearly with his PCP. Patient had gastric bypass surgery before. He is at risk of developing iron deficiency anemia. 3. Patient had questions regarding cancer. Explained to him that at this time there is no suspicionof cancer. In last [address] abdomen and pelvis, abdominal ultrasound and chest x-ray. No evidence of malignancy. Cologuard test last year was negative. His WBC and platelet are normal. I am not suspecting any malignancy. Patient advised to follow-up with his PCP and have a screening for prostate cancer and colon cancer done on regular basis. 4. He had few questions which were all answered. He will follow-up with his PCP. He will see us as needed. Total video visit time of 20 minutes. Time spent in today's video, review of chart/investigations today and documentation today. documented in this encounter Nursing Notes * Juliann Sandoval - 05/05/2025 8:20 AM CDT Patient confirms medications and allergies are accurate via patients echeck in completion, and or denies any changes since last reviewed/verified. Current patient location: [address] [place] [address] Is the patient currently in the state of [place]? YES Visit mode: VIDEO If the visit is dropped, the patient can be reconnected by:VIDEO VISIT: Text to cell phone: Telephone Information: Mobile Not on file. Will anyone else be joining the visit? NO (If patient encounters technical issues they should call [phone]) Are changes needed to the allergy or medication list? No Are refills needed on medications prescribed by this physician? NO Rooming Documentation: Questionnaire(s) not done per department protocol Reason for visit: RECHECK Juliann Sandoval VVF documented in this encounter Plan of Treatment Upcoming Encounters Date Type Department Care Team (Late st Contact Info) Description 05/28/2025 1:40 PM CDT Therapy Visit [address] [place] [phone] Mary Trent PA-C [address] [facility] [place] [address] [place] [address] [place] [address] [place] [address] 06/04/2025 1:40 PM CDT Therapy Visit [address] [place] [phone] Mary Trent PA-C [address] [id number] [place] [address] [place] [address] [place] [address] 07/01/2025 10:30 AM CDT Virtual Visit [facility] [address] [place] [phone] Mary Trent PA-C [address] [place] [id number] 07/01/2025 11:00 AM CDT Virtual Visit [facility] [place] [address] [facility] [address] [place] [phone] Christina Paz, RD, [place] [address] [place] [address] 09/20/2025 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 Office Visit [facility] Neurology Clinics - [place] [address] [facility], [address] [place] [phone] Deshawn eVloz MD [address] [place] [address] documented as of this encounter Visit Diagnoses Diagnosis Anemia, unspecified type- Primary documented in this encounter Additional Health Concerns Assessment Noted Time PHQ-9 Depression Total Score: 8 02/12/20 25 8:47 AM CDT documented as of this encounter Care Teams Director Of Human Resources Relationship Specialty Start Date End Date Cosme Wayne MD [address] [place] [address] PCP - General Internal Medicine 08/27/22 Cosme Wayne MD [address] [place] [address] Assigned PCP 08/13/21 Deshawn Veloz MD [address] [place] [address] Neurology 09/24/22 Deshawn Veloz MD [address] [place] [address] Assigned Neuroscience Provider 10/13/22 Mindy Harrison MD [address] [place] [address] Nephrology 04/22/23 Karine Rangel [facility] 9[address] [place] [address] Pharmacist Pharmacist Automobile Or Truck Rental Dispatcher 09/07/24 Karine Rangel [facility] 9 [place], [place] [id number] Assigned MTM Pharmacist 09/12/24 Devon Hernandez MD [address] [place], [place] [address] Hematology & Oncology 12/23/24 Mary Trent PA-C [address] [place], [place] [address] Physician Manager Actuarial Bariatric 12/23/24 Cal Zelaya PA-C 9 [place], [place] [address] Physician Manager Actuarial Gastroenterology 12/28/24 Mary Trent PA-C [address] [place], [place] [address] Assigned Surgical Provider 01/10/25 Cal Zelaya PA-C 9 [place], [place] [address] Assigned Gastroenterology Provider 03/12/25 documented as of this encounter
--- OUTSIDE RECORDS SUMMARY | 2025-05-07 13:00 | XMS_ITS | Encounter Summary ---
Author Organization [place] Address [address] [place] [address] Care Team Providers Care Sharepoint Trainer Name Role Phone Cosme Wayne MD Unavailable [phone] Cosme Wayne MD Primary Care Provider + Deshawn Veloz MD Unavailable Deshawn Veloz MD Unavailable Mindy Harrison MD Unavailable Karine Rangel [facility] Unavailable [phone] Karine Rangel [place] Unavailable [phone] Devon Hernandez MD Unavailable [phone] Mary Trent-C Unavailable [phone] Cal Zelaya-Baldemar Unavailable [phone] Mary Trent-Baldemar Unavailable [phone] Cal Zelaya-C Unavailable [phone] Reason for Visit * Rehab Therapy Physical Therapy (Routine: Next available opening) - Authorized Specialty Diagnoses / Procedures Referred By Chidi harris Referred To Contact Physical Therapy Diagnoses Class 1 obesity with serious comorbidity and body mass index (BMI) of 30.0 to 30.9 in adult, unspecified obesity type [address] [address] Phone: tel: Referral ID Status Reason Start Date Expiration Date V isits Requested Visits Authorized [id number] Authorized 05/07/2025 07/16/2025 8 8 Encounter Details Date Type Department Care Team (Latest Contact Info) Description 05/07/2025 1:00 PM CDT Therapy Visit [facility] Specialty [place] [address] [place] [phone] Mary Trent, PA-C [address] [place] [address] [place] [address] [place] [address] Cervical pain (Primary Dx); Class 1 obesity without serious comorbidity with body mass index (BMI) of 30.0 to 30.9 in adult, unspecified obesity type Social History Tobacco Use Types Packs/Day Years [...] relatives? 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 Pt has a history of 2 cervical spinal fusion surgeries and still notes lingering pain, decreased mobility and strength . Pt referred forphysical therapy on 04-30-25 Condition type: Chronic (continuous duration >3 months) Cause of current episode: Post Surgical Type of surgery: 4-Spinal Fusion Nature of treatment: Rehabilitative Functional ability: Moderate functional limitations Documented POC (choose all that apply): Measurable short and fpc/discharge treatment goals related to physical and functional deficits.;Frequency of treatment visits and treatment activities toaddress deficit areas.;Patient agrees to program participation including home program Briefly describe symptoms: cervical pain, limited ROM , weakness in lower extremities How did the symptoms start: unknown etiology Average pain/intensity last 24 hours: 4/10 Average pain/intensity past week: 710 Frequency of Symptoms: Frequently (51-75% of the time) Symptom impact on ADLs: Moderately Condition change since eval: General health reported by patient: Fair Presenting condition or subjective complaint: Date of onset: 04/30/25 Relevant medical history: Dates & types of surgery: Prior diagnostic imaging/testing results: MRI; CT scan; X-ray; EMG Prior therapy history for the same diagnosis, illness or injury: Yes Prior Level of Function Transfers: Independent Ambulation: Independent ADL: Independent 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, 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 Living Environment Social support: Alone Type of home: House Stairs to enter the home: No Ramp: No Stairs inside the home: No Help at home: Home management tasks (cooking, cleaning) Equipment owned: Employment: No Hobbies/Interests: Patient goals for therapy: range of movement Pain assessment: Pain present Location: cervical /Ratin-04/29 Objective CERVICAL SPINE EVALUATION PAIN: Pain Level at Rest: 4/10 Pain Level with Use: 7/10 Pain Location: cervical spine Pain Quality: Aching and Sharp Pain Frequency: intermittent Pain is Worst: daytime Pain is Exacerbated By: movement, lifting Pain is Relieved By: rest Pain Progression: Unchanged INTEGUMENTARY (edema, incisions): POSTURE: forward head and shoulder posture GAIT: Weightbearing Status: WBAT Assistive Device(s): None Gait Deviations: Stance time decreased BALANCE/PROPRIOCEPTION: fair WEIGHTBEARING ALIGNMENT: ROM: cervical AROM flexion moderate loss extension moderate loss right rotation moderate loss left rotation moderate loss right lateral flexion maximum loss left lateral flexion moderate loss MYOTOMES: WNL DTR???S: WNL CORD SIGNS: WNL DERMATOMES: WNL NEURAL TENSION: FLEXIBILITY: decreased flexibility bilateral cervical rotation, hamstrings and gastrocnemisu SPECIAL TESTS: PALPATION: pain with palpation left upper trapezius SPINAL SEGMENTAL CONCLUSIONS: Assessment & Plan CLINICAL IMPRESSIONS Medical Diagnosis: cervical pain, obesity Treatment Diagnosis: cervical pain, obesity, decreased flexibility and strength Impression/Assessment: Patient is a 54 year old male with cervical / obesity complaints. The following significant findings have been identified: Pain. These impairments interfere with their ability to perform self care tasks, recreational activities, hoop puncher, driving , household mobility,and community mobility as compared to previous level of function. Clinical Decision Making (Complexity): Clinical Presentation: Stable/Uncomplicated Clinical Presentation Rationale: based on medical and personal factors listed in PT evaluation Clinical Decision Making (Complexity): Low complexity PLAN OF CARE Treatment Interventions: Interventions: Therapeutic Activity, Therapeutic Exercise Fdc Goals PT Goal 1 Goal Identifier: ambulation Goal Description: pt walking 20 minutes 5x/week Rationale: to maximize safety and independence with performance of ADLs and functional tasks;to maximize safety and independence within the home;to maximize safety and independence within the community;to maximize safety and independence with transportation;to maximize safety and independence with self cares Target Date: 07/30/25 Frequency of Treatment: 2x/month Duration of Treatment: 3 months Recommended Referrals to Other Professionals: Education Assessment: Learner/Method: No Barriers to Learning Risks and benefits of evaluation/treatment have been explained. Patient/Family/caregiver agrees with Plan of Care. Evaluation Time: PT Nestor Villalba Minutes ([id number]): 20 Signing Clinician: MUNRI[facility] OUTPATIENT PHYSICAL THERAPY PLAN OF TREATMENT FOR OUTPATIENT REHABILITATION Patient's Last Name, First Name, Neri Salazar Date of : 1970 Provider's Name [facility] Onset Date: 04/30/25 Start of Care Date: 05/07/25 Medical Diagnosis: cervical pain, obesity PT Treatment Diagnosis: cervical pain, obesity, decreased flexibility and strength Plan of Treatment Frequency/Duration: 2x/month/ 3 months Certification date from 05/07/25 to 07/30/25 See note for plan of treatment details and functional goals Zack Alonzo, PT I CERTIFY THE NEED FOR THESE SERVICES FURNISHED UNDER THIS PLAN OF TREATMENT AND WHILE UNDER MY CARE (Physician attestation of this document indicates review and certification of the therapy plan). Referring Provider: Mary Trent Initial Assessment See Epic Evaluation- Start of Care Date: 05/07/25 Cosigned by Mary Trent PA-C at 05/07/2025 3:10 PM CDT Associated attestation - Mary Trent PA-C - 05/07/2025 3:10 PM CDT Note reviewed. Mary Trent PA-C documented in this encounter Plan of Treatment Upcoming Encounters Date Type Department Care Team (Late st Contact Info) Description 05/28/2025 1:40 PM CDT Therapy Visit [address] [phone] Mary Trent PA-C [address] [address] Zack Alonzo, PT [address] [place] [address] 06/04/2025 1:40 PM CDT Therapy Visit [address] [phone] Mary Trent PA-C [address] [place] [address] [place] [address] [place], [place] [address] 07/01/2025 10:30 AM CDT Virtual Visit [facility] [place] [address] [facility] [address] [place] [address] Mary Trent PA-C [address] [facility] [address] [place] [address] 07/01/2025 11:00 AM CDT Virtual Visit 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 Neurology Clinics - [place] [address] [facility], [address] [place] [phone] Deshawn Veloz MD [address] [facility] [place] [id number] documented as of this encounter Visit Diagnoses Diagnosis Cervical pain- Primary Cervicalgia Class 1 obesity without serious comorbidity with body mass index (BMI) of 30.0 to 30.9 in adult, unspecified obesity type documented in this encounter Additional Health Concerns Assessment Noted Time PHQ-9 Depression Total Score: 8 02/12/20 25 8:47 AM CDT documented as of this encounter Care Teams Sharepoint Trainer Relationship Specialty Start Date End Date Cosme Wayne MD [address] [place] [address] PCP - General Internal Medicine 08/27/22 Cosme Wayne MD [address] [place] [address] Assigned PCP 08/13/21 Deshawn Veloz MD [address] [place] [id number] Neurology 09/24/22 Deshawn Veloz MD [address] [place] [id number] Assigned Neuroscience Provider 10/13/22 Mindy Harrison MD [address] [place] [address] Nephrology 04/22/23 Karine Rangel [facility] 9[address] [place] [address] Pharmacist Pharmacist Passementerie Worker 09/07/24 Karine Rangel [facility] 9 [place] [address] Assigned MTM Pharmacist 09/12/24 Devon Hernandez MD [address] [place] [address] Hematology & Oncology 12/23/24 Mary Trent, PA-C [address] [place] [address] Physician Ict Teacher Bariatric 12/23/24 Cal Zelaya PA-C [address] [place] [address] Physician Ict Teacher Gastroenterology 12/28/24 Mary Trent PA-C [address] [facility] [address] [place], [place] [phone] Assigned Surgical Provider 01/10/25 Cal Zelaya PA-C [address] [place], [place] [address] Assigned Gastroenterology Provider 03/12/25 documented as of this encounter
--- OUTSIDE RECORDS SUMMARY | 2025-05-17 14:00 | XMS_ITS | Encounter Summary ---
Author Organization [place] Address [address] [facility] [address] Care Team Providers Care Weasand Trimmer Name Role Phone Cosme Wayne MD Unavailable [phone] Cosme Wayne MD Primary Care Provider + Deshawn Veloz MD Unavailable Deshawn Veloz MD Unavailable Mindy Harrison MD Unavailable Karine Rangel [facility] Unavailable [phone] Karine Rangel [facility] Unavailable [phone] Devon Hernandez MD Unavailable [phone] Mary Trent-C Unavailable [phone] Cal Zelaya-C Unavailable [phone] Mary Trent-C Unavailable [phone] Cal Zelaya-C Unavailable [phone] Devon Hernandez MD Unavailable [phone] Encounter Details Date Type Department Care Team (Late st Contact Info) Description 05/17/2025 2:00 PM CDT Lab [facility] [address] [address] High risk medication use (Primary Dx) Social History Tobacco Use Types [...] relatives? 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 Gender Identity Male 07/22/2021 2:30 PM CDT Sexual Orientation Straight 07/22/2021 2: 30 PM CDT documented as of this encounter Plan of Treatment Upcoming Encounters Date Type Department Care Team (Late st Contact Info) Description 05/28/2025 1:40 PM CDT Therapy Visit [address] [phone] Mary Trent PA-C [address] [place] [address] [place] [address] [facility] [address] [place] [address] 06/04/2025 1:40 PM CDT Therapy Visit [address] [phone] Mary Trent PA-C [address] [place] [address] [place] [address] AGU[place]LO [place], [place] [address] 07/01/2025 10:30 AM CDT Virtual Visit [facility] [place] [address] [facility] [address] [place] [phone] Mary Trent PA-C [address] [place] [address] 07/01/2025 11:00 AM CDT Virtual Visit [facility] [place] [address] [facility] [address] [place] [phone] Christina Paz, RD, LD [address] [place] [address] 09/20/2025 10:00 AM FISH AND GAME CLUB MANAGER Office Visit [facility] [place] [address] [facility], [address] [place] [phone] Deshawn Veloz MD [address] [place] [address] documented as of this encounter Procedures Procedure Name Priority Date/Time Associated Diagnosis Comments URINE DRUG SCREEN Routine 05/17/2025 2:1 7 PM CDT High risk medication use URINE DRUG SCREEN PANEL Routine 05/17/2025 2:17 PM CDT High risk medication use documented in this encounter Results * Urine Drug Screen Panel (05/17/2025 2:17 PM CDT) [facility] Amphetamines Urine Screen Negative Screen Negative 05/17/2025 8:29 PM CDT [facility] Comment:Cutoff for a negativ e amphetamine is less than 500 ng/mL. Barbituates Urine Screen Negative Screen Negative 05/17/2025 8:29 PM CDT [facility] Comment:Cutoff for a negativ e barbiturate is less than 200 ng/mL. Benzodiazepine Urine Screen Negative Screen Negative 05/17/2025 8:29 PM CDT [facility] Comment:Cutoff for a negativ e benzodiazepine is less than 100 ng/mL. Cannabinoids Urine Screen Negative Screen Negative 05/17/2025 8:29 PM CDT [facility] Comment:Cutoff for a negativ e cannabinoid is less than 50 ng/mL. Cocaine Urine Screen Negative Screen Negative 05/17/2025 8:29 PM CDT [facility] Comment:Cutoff for a negativ e cocaine is less than 300 ng/mL. Fentanyl Qual Urine Screen Negative Screen Negative 05/17/2025 8:29 PM CDT [facility] Comment:Cutoff for negative fentanyl is less than 5 ng/mL. Opiates Urine Screen Negative Screen Negative 05/17/2025 8:29 PM CDT [facility] Comment:Cutoff for a negativ e opiate is less than 300 ng/mL. PCP Urine Screen Negative Screen Negative 05/17/2025 8:29 PM CDT [facility] Comment:Cutoff for a negativ e PCP is less than 25 ng/mL. Urine URINE SPECIMEN / Unknown Non-blood Collection / Unknown 05/17/2025 2:17 PM CDT 05/17/2025 2:17 PM CDT Adelita Pulido PA-C LAB - URINE ORDERABL ES Final Result [facility] [place] [facility] [address] [facility], [address] [place] [address], [facility] documented in this encounter Visit Diagnoses Diagnosis High risk medication use- Primary Encounter for long-term (current) use of other medications documented in this encounter Additional Health Concerns Assessment Noted Time PHQ-9 Depression Total Score: 8 02/12/20 25 8:47 AM CDT documented as of this encounter Care Teams Weasand Trimmer Relationship Specialty Start Date End Date Cosme Wayne MD [address] [address] PCP - General Internal Medicine 08/27/22 Cosme Wayne MD [address] [place] [address] Assigned PCP 08/13/21 Deshawn Veloz MD [address] [place] [address] [address] Neurology 09/24/22 Deshawn Veloz MD [address] 628295 Assigned Neuroscience Provider 10/13/22 Mindy Harrison MD [address] [place] [address] [address] Nephrology 04/22/23 Karine Rangel [address] [place] [address] Pharmacist Pharmacist Pipe Organ Technician 09/07/24 Karine Rangel [address] [place] [address] Assigned MTM Pharmacist 09/12/24 Devon Hernandez MD [address] [place] [id number] Hematology & Oncology 12/23/24 Mary Trent, PA-C [address] [place] [address] Physician Community Association Manager Bariatric 12/23/24 Cal Zelaya PA-C [address] [place] [address] Physician Community Association Manager Gastroenterology 12/28/24 Mary Trent PA-C [address] [place] [address] Assigned Surgical Provider 01/10/25 Cal Zelaya PA-C [address] [place] [address] Assigned Gastroenterology Provider 03/12/25 Devon Hernandez MD [address] [place] [address] Assigned Cancer Care Provider 05/12/25 documented as of this encounter
[2025-05-22 14:31] VITALS: BP 128/113; PULSE 64; RESP 16; TEMP 36.9; O2SAT 96; BMI 30.9
--- NOTE | 2025-05-22 15:09 | CRLHL7_ITS ---
For Patients: As a result of the Cures Act, medical imaging exams and procedure reports are released immediately into your electronic medical record. You may view this report before your referring provider. If you have questions, please contact your health care provider. Indication: Right 3rd digit injury. Technique: Three views of the right 3rd digit. Comparison: None. Findings: Comminuted displaced fracture of the tuft of 3rd distal phalanx. No extension to the joint space. Bandage material obscures detail with no definite radiopaque foreign body. Impression: Comminuted displaced fracture of the tuft of the 3rd distal phalanx. Dictated by Rodrick Phipps MD @ 05/22/2025 3:47:55 PM (Electronically Signed)
--- OUTSIDE RECORDS SUMMARY | 2025-05-22 16:06 | XMS_ITS | Encounter Summary ---
Author Organization [place] Address [address] [facility] [place] [address] Care Team Providers Care Lead Miner Blasting Name Role Phone [facility] Primary Care Provider + Cosme Wayne MD Unavailable [phone] Cosme Wayne MD Primary Care Provider + Neri Yusuf DPM Unavailable [phone] Deshawn Veloz MD Unavailable Deshawn Veloz MD Unavailable Neri YusufM Unavailable [phone] Mindy Harrison MD Unavailable Mary Trent-C Unavailable [phone] Karien Rangel [facility] Unavailable [phone] Karine Rangel [facility] Unavailable [phone] Mariana Queen MD Unavailable [phone] Devon Hernandez MD Unavailable [phone] Mary Trent-C Unavailable [phone] Cal Zelaya-C Unavailable [phone] Mary Trent-C Unavailable [phone] Cal Zelaya-C Unavailable Devon Hernandez MD Unavailable [phone] Encounter Details Date Type Department Care Team (Late st Contact Info) Description 02/16/2022 MyC Medical Advice [facility] [address] [phone] Cosme Wayne MD [address] [place] [address]93000 Social History Tobacco Use Types Packs/Day Years Used Date Smoking Tobacco: Former Cigarettes 0.5 17 0 10/21/1982 - 10/21/1999 Smokeless Tobacco: Never Alcohol Use Standard Drinks/Week Comments Yes 4 (1 standard drink = 0.6 oz pur e alcohol) PHQ-2 Answer Date Recorded PHQ-2 Score 0 02/13/2022 Sex and Gender Information Value Date Recorded Sex Assigned at Male 07/22/2021 2:30 PM CDT 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 No / Unsure 01/18/2022 2:03 PM CDT documented as of this encounter Miscellaneous Notes * Telephone Encounter - Bety Hare RN - 02/16/2022 9:26 AM CDT documented in this encounter Plan of Treatment Upcoming Encounters Date Type Department Care Team (Late st Contact Info) Description 05/28/2025 1:40 PM CDT Therapy Visit [facility] [address] [facility] [address] [place] [phone] Mary Trent, PA-C [address] [facility] [address] [place] [address] [place] [address] [place] [address] 06/04/2025 1:40 PM CDT Therapy Visit [facility] [address] [facility] [address] [place] [phone] Mary Trent, PA-C [address] [place] [address] [place] [address] [place] [address] 07/01/2025 10:30 AM CDT Virtual Visit [facility] [place] [address] [facility] [address] [place] [phone] Mary Trent PAAllisonC [address] [place] [id number] 07/01/2025 11:00 AM CDT Virtual Visit [facility] [place] [address] [facility] [address] [place] [phone] Christina Paz, RD, LD [address] [place] [address] 09/20/2025 10:00 AM ORNAMENTAL RAIL INSTALLER Office Visit [facility] [place] [address] [facility], [address] [place] [phone] Deshawn Veloz MD [address] [place] [id number] documented as of this encounter Visit Diagnoses Not on filedocumented in this encounter Additional Health Concerns Infection Onset Date Last Indicated Resolved Time Rule Out COVID-19 01/31/2025 01/31/2025 01/31/2025 1:07 PM CDT COVID-19 01/31/2025 01/31/2025 02/11/2025 11:3 9 PM CDT Assessment Noted Time PHQ-9 Depression Total Score: 8 01/19/20 22 3:08 PM CDT documented as of this encounter Care Teams Lead Miner Blasting Relationship Specialty Start Date End Date [facility] PCP - General Family Practice 12/14/19 08/26/22 Cosme Wayne MD [address] [place] [phone] PCP - General Internal Medicine 08/27/22 Cosme Wayne MD [address] [place] [address] 726060 Assigned PCP 08/13/21 Neri Yusuf DPM [address] 116[address] Assigned Musculoskeletal Provider 09/15/22 11/23/22 Deshawn Veloz MD [address] [place] [address] [id number] Neurology 09/24/22 Deshawn Veloz MD [address] [place] [address] Assigned Neuroscience Provider 10/13/22 Neri Yusuf DPM [address] [address] [place] [address] Assigned Surgical Provider 11/24/22 03/11/24 [place] [address] [facility] [address] [place] [address] Nephrology 04/22/23 Mary Trent PA-C [address] [place] [address] Assigned Surgical Provider 07/13/24 09/11/24 Karine Rangel [facility] [address] [place] [address] 588235 Pharmacist Pharmacist Surveillance Manager 09/07/24 Karine Rangel [facility] 9 [place], [place] 1432[address] Assigned MTM Pharmacist 09/12/24 Mariana Queen MD [address] [place] [address] Assigned Surgical Provider 09/12/24 01/09/25 Devon Hernandez MD [address] [place] [address] Hematology & Oncology 12/23/24 Mary Trent PA-C [address] [place] [address] Physician Treasury Agent Bariatric 12/23/24 Cal Zelaya PA-C 9 [place] [address] Physician Treasury Agent Gastroenterology 12/28/24 Mary Trent PA-C [address] [facility] [address] [place] [address] Assigned Surgical Provider 01/10/25 Cal Zelaya PA-C [address] [place] [address] Assigned Gastroenterology Provider 03/12/25 Devon Hernandez MD [address] [place] [address] Assigned Cancer Care Provider 05/12/25 documented as of this encounter
--- OUTSIDE RECORDS SUMMARY | 2025-05-22 16:06 | XMS_ITS | Encounter Summary ---
Author Organization [place] Address [address] [facility] [place] [address] Care Team Providers Care Wet Press Tender Name Role Phone Cosme Wayne MD Unavailable [phone] Cosme Wayne MD Primary Care Provider + Deshawn Veloz MD Unavailable Deshawn Veloz MD Unavailable Mindy Harrison MD Unavailable Karine Rangel [facility] Unavailable [phone] Karine Rangel [facility] Unavailable [phone] Mariana Queen MD Unavailable [phone] Devon Hernandez MD Unavailable [phone] Mary Trent-Baldemar Unavailable [phone] Cal Zelaya-C Unavailable [phone] Mary Trent-C Unavailable [phone] Cal Zelaya-Baldemar Unavailable [phone] Devon Hernandez MD Unavailable [phone] Encounter Details Date Type Department Care Team (Late st Contact Info) Description 12/24/2024 [facility] [address] [place] [address] Mary Trent PA-C [address] [place] [address] Social History Tobacco Use Types Packs/Day Years Used Date Smoking Tobacco: Former Cigarettes 0.5 17 0 10/21/1982 - 10/21/1999 Smokeless Tobacco: Never Alcohol Use Standard Drinks/Week Comments Yes 4 (1 standard drink = 0.6 oz pur e alcohol) Social Connection and Isolation Panel [NHANES] A nswer Date Recorded Frequency of Communication with Friends and Fami ly Not on file 12/04/2023 How often do you get togethe r with friends or relatives? 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 Gender Identity Male 07/22/2021 2:30 PM CDT Sexual Orientation Straight 07/22/2021 2: 30 PM CDT documented as of this encounter Plan of Treatment Upcoming Encounters Date Type Department Care Team (Late st Contact Info) Description 05/28/2025 1:40 PM CDT Therapy Visit [facility] [address] [facility] [address] [place] [phone] Mary Trent, PAAllisonC [address] [place] [address] [place] [address] [place], [place] [address] 06/04/2025 1:40 PM CDT Therapy Visit [facility] [address] [facility] [address] [place] [phone] Mary Trent PA-C [address] [place] [address] [place] [address] [place], [place] [address] 07/01/2025 10:30 AM CDT Virtual Visit [facility] [place] [address] [facility] [address] [place] [phone] Mary Trent PA-C [address] [place] [id number] 07/01/2025 11:00 AM CDT Virtual Visit [facility] [place] [address] [facility] [address] [place] [phone] Christina Paz, RD, LD [address] [place] [address] 09/20/2025 10:00 AM CERTIFIED MEDICAL CODING SPECIALIST Office Visit [facility] [place] [address] [facility], [address] [place] [phone] Deshawn Veloz MD [address] [place] [address] documented as of this encounter Visit Diagnoses Not on filedocumented in this encounter Additional Health Concerns Infection Onset Date Last Indicated Resolved Time Rule Out COVID-19 01/31/2025 01/31/2025 01/31/2025 1:07 PM CDT COVID-19 01/31/2025 01/31/2025 02/11/2025 11:3 9 PM CDT Assessment Noted Time PHQ-9 Depression Total Score: 14 12/17/2 025 10:39 AM CERTIFIED MEDICAL CODING SPECIALIST documented as of this encounter Care Teams Wet Press Tender Relationship Specialty Start Date End Date Cosme Wayne MD [address] [place] [address] PCP - General Internal Medicine 08/27/22 Cosme Wayne MD [address] [place] [address] Assigned PCP 08/13/21 Deshawn Veloz MD [address] [id number] Neurology 09/24/22 Deshawn Veloz MD [address] 372645 Assigned Neuroscience Provider 10/13/22 Mindy Harrison MD [address] 746275 Nephrology 04/22/23 Karine Rangel RPH [address] [place] [address] Pharmacist Pharmacist Maintenance Engineer 09/07/24 Karine Rangel Nicolle [address] [place] [address] Assigned MTM Pharmacist 09/12/24 Mariana Queen MD [address] [place] [address] Assigned Surgical Provider 09/12/24 01/09/25 Devon Hernandez MD [address] [place] [address] Hematology & Oncology 12/23/24 Mary Trent PA-C [address] [place] [address] Physician Learning Engineer Bariatric 12/23/24 Cal Zelaya PA-C [address] [place], [place] 4104[address] Physician Learning Engineer Gastroenterology 12/28/24 Mary Trent PA-C [address] [place] [id number] Assigned Surgical Provider 01/10/25 Cal Zelaya PA-C [address] [place], [place] 7257[address] Assigned Gastroenterology Provider 03/12/25 Devon Hernandez MD [address] [place] 268[address] Assigned Cancer Care Provider 05/12/25 documented as of this encounter
--- OUTSIDE RECORDS SUMMARY | 2025-05-22 16:06 | XMS_ITS | Encounter Summary ---
Author Organization [place] Address [address] [facility] [place] [address] Care Team Providers Care Haulage Boss Name Role Phone Cosme Wayne MD Unavailable [phone] Cosme Wayne MD Primary Care Provider + Deshawn Veloz MD Unavailable Deshawn Veloz MD Unavailable Mindy Harrison MD Unavailable Karine Rangel [facility] Unavailable [phone] Karine Rangel [facility] Unavailable [phone] Mariana Queen MD Unavailable [phone] Devon Hernandez MD Unavailable [phone] Mary Trent-Baldemar Unavailable [phone] Cal Zelaya-C Unavailable [phone] Mary Trent-C Unavailable [phone] Cal Zelaya-Baldemar Unavailable [phone] Devon Hernandez MD Unavailable [phone] Encounter Details Date Type Department Care Team (Late st Contact Info) Description 12/21/2024 [facility] [address] [place] [address] Mary Trent PA-C [address] [place] [address] Social History Tobacco Use Types Packs/Day Years [...] relatives? Three times a week 12/04/2023 Attends [employer] [facility] Not on file 12/04 Active Member of Clubs or Organizations Not on f ile 12/04/2023 Attends Club or Organization Meetings Not on abad e 12/04/2023 Marital Status Not on file 12/04/2023 PHQ-2 Answer Date Recorded PHQ-2 Score 3 12/17/2024 [facility] of Occupat ional Health - Occupational [...] PM CDT Legal Sex Male 3:12 AM APPLICATION SUPPORT DEVELOPER Gender Identity Male 07/22/2021 2:30 PM CDT Sexual Orientation Straight 07/22/2021 2: 30 PM CDT documented as of this encounter Miscellaneous Notes * Telephone Encounter - Ashleigh Rubi, RN - 12/21/2024 4:40 PM APPLICATION SUPPORT DEVELOPER 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 Plz advise. Thx Ashleigh Simmons, MS, RD, RN ICATION SUPPORT DEVELOPER documented in this encounter Plan of Treatment Upcoming Encounters Date Type Department Care Team (Late st Contact Info) Description 05/28/2025 1:40 PM CDT Therapy Visit [facility] [address] [facility] [address] [place] [phone] Mary Trent, PAAllisonC [address] [place] [address] [place] [address] [place] [address] 06/04/2025 1:40 PM CDT Therapy Visit [facility] [address] [facility] [address] [place] [phone] Mary Trent, PAAllisonC [address] [place] [address] [place] [address] [place] [address] 07/01/2025 10:30 AM CDT Virtual Visit [facility] [place] [address] [facility] [address] [place] [phone] Mary Trent PAAllisonC [address] [place] [address] 07/01/2025 11:00 AM CDT Virtual Visit [facility] [place] [address] [facility] [address] [place] [phone] Christina Paz, RD, [place] [address] [facility] [place] [address] 09/20/2025 10:00 AM APPLICATION SUPPORT DEVELOPER Office Visit [facility] [place] [address] [place] [address], [address] [place] [phone] Deshawn Veloz MD [address] [facility] [place] [address] documented as of this encounter Visit Diagnoses Not on filedocumented in this encounter Additional Health Concerns Infection Onset Date Last Indicated Resolved Time Rule Out COVID-19 01/31/2025 01/31/2025 01/31/2025 1:07 PM CDT COVID-19 01/31/2025 01/31/2025 02/11/2025 11:3 9 PM CDT Assessment Noted Time PHQ-9 Depression Total Score: 14 025 10:39 AM APPLICATION SUPPORT DEVELOPER documented as of this encounter Care Teams Haulage Boss Relationship Specialty Start Date End Date Cosme Wayne MD [address] [place] [address] PCP - General Internal Medicine 08/27/22 Cosme Wayne MD [address] [place] [address] Assigned PCP 08/13/21 Deshawn Veloz MD [address] 526[address] Neurology 09/24/22 Deshawn Veloz MD [address] [address] Assigned Neuroscience Provider 10/13/22 Mindy Harrison MD [address] [address] Nephrology 04/22/23 Karine Rangel RPH 909 [place] [address] Pharmacist Pharmacist Pourer 09/07/24 Karine Rangel RPH [address]09 [place] [address] Assigned [facility] Pharmacist 09/12/24 Mariana Queen MD [address] [place] [address] Assigned Surgical Provider 09/12/24 01/09/25 Devon Hernandez MD [address] [place], [place] [address] Hematology & Oncology 12/23/24 Mary Trent PA-C [address] [place] [address] Physician Health Care / Medical Job Titles Bariatric 12/23/24 Cal Zelaya PA-C [address] [place] [address] Physician Health Care / Medical Job Titles Gastroenterology 12/28/24 Mary Trent PA-C [address] [place], [place] 0[address] Assigned Surgical Provider 01/10/25 Cal Zelaya PA-C [address] [place], [place] 6[address] Assigned Gastroenterology Provider 03/12/25 Devon Hernandez MD [address] [place], [place] 8[address] Assigned Cancer Care Provider 05/12/25 documented as of this encounter
--- OUTSIDE RECORDS SUMMARY | 2025-05-22 16:06 | XMS_ITS | Encounter Summary ---
Author Organization [place] Address [address] [facility] [place] [address] Care Team Providers Care Cut Off Saw Operator Name Role Phone Cosme Wayne MD Unavailable [phone] Cosme Wayne MD Primary Care Provider + Deshawn Veloz MD Unavailable Deshawn Veloz MD Unavailable Mindy Harrison MD Unavailable Karine Rangel [facility] Unavailable [phone] Karine Rangel [facility] Unavailable [phone] Mariana Queen MD Unavailable [phone] Devon Hernandez MD Unavailable [phone] Mary Trent-C Unavailable [phone] Cal Zelaya-C Unavailable Mary Trent-C Unavailable [phone] Cal Zelaya-Baldemar Unavailable Devon Hernandez MD Unavailable [phone] Encounter Details Date Type Department Care Team (Late st Contact Info) Description 12/29/2024 MyC Medical Advice Initial Department Darion Ayala Social History Tobacco Use Types Packs/Day Years [...] relatives? Three times a week 12/04/2023 Attends Buddhism Services Not on file 12/04 Active Member of Clubs or Organizations Not on f ile 12/04/2023 Attends Club or Organization Meetings Not on abad e 12/04/2023 Marital Status Not on file 12/04/2023 PHQ-2 Answer Date Recorded PHQ-2 Score 3 12/17/2024 [facility] - Occupational [...] in an abandoned building, in an overnight halfway, or couch-surfing.) Yes 11/29/2024 Are you worried [...] PM CDT Legal Sex Male 3:12 AM NUCLEAR CRITICALITY SAFETY ENGINEER Gender Identity Male 07/22/2021 2:30 PM CDT Sexual Orientation Straight 07/22/2021 2: 30 PM CDT documented as of this encounter Plan of Treatment Upcoming Encounters Date Type Department Care Team (Late st Contact Info) Description 05/28/2025 1:40 PM CDT Therapy Visit [facility] [address] [place] [facility] [address] [place] [address] [phone] Mary Trent PA-C [address] [place] [address]605 [place] [address] [place] [address] 06/04/2025 1:40 PM CDT Therapy Visit [facility] [address] [facility] [address] [place] [address] [phone] Mary Trent PA-C [address] [place] [address] 365345 [place] [address] [place] [address] 127737 07/01/2025 10:30 AM CDT Virtual Visit [facility] [place] [address] [facility] [address] [place] [phone] Mary Trent PAAllisonC [address] [place] [address] 07/01/2025 11:00 AM CDT Virtual Visit [facility] [place] [address] [facility] [address] [place] [address] Christina Paz, RD, [place] [address] [place] [id number] 09/20/2025 10:00 AM NUCLEAR CRITICALITY SAFETY ENGINEER Office Visit [facility] [place] [address] [facility], [address] [place] [phone] Deshawn Veloz MD [address] [facility] [place] 84[address] documented as of this encounter Visit Diagnoses Not on filedocumented in this encounter Additional Health Concerns Infection Onset Date Last Indicated Resolved Time Rule Out COVID-19 01/31/2025 01/31/2025 01/31/2025 1:07 PM CDT COVID-19 01/31/2025 01/31/2025 02/11/2025 11:3 9 PM CDT Assessment Noted Time PHQ-9 Depression Total Score: 14 025 10:39 AM NUCLEAR CRITICALITY SAFETY ENGINEER documented as of this encounter Care Teams Cut Off Saw Operator Relationship Specialty Start Date End Date Cosme Wayne MD [address] [place] [address] PCP - General Internal Medicine 08/27/22 Cosme Wayne MD [address] [place] [address] Assigned PCP 08/13/21 Deshawn Veloz MD [address] [place] 107195 Neurology 09/24/22 Deshawn Veloz MD [address] [place] 332005 Assigned Neuroscience Provider 10/13/22 Mindy Harrison MD [address] [place] 700155 Nephrology 04/22/23 Karine Rangel [facility] 909 [place] [address] Pharmacist Pharmacist Corporate Travel Expert 09/07/24 Karine Rangel [facility] 9 [place] [address] Assigned MTM Pharmacist 09/12/24 Mariana Queen MD [address] [place] [address] Assigned Surgical Provider 09/12/24 01/09/25 Devon Hernandez MD [address] [place] [address] Hematology & Oncology 12/23/24 Mary Trent PA-C [address] [place] [address] Physician Systems Test Analyst Bariatric 12/23/24 Cal Zelaya PA-C [address] [place], [place] 543655 Physician Systems Test Analyst Gastroenterology 12/28/24 Mary Trent PA-C [address] [place] [address] Assigned Surgical Provider 01/10/25 Cal Zelaya PA-C 9[address] [place], [place] 461245 Assigned Gastroenterology Provider 03/12/25 Devon Hernandez MD [address] [place] 338675 Assigned Cancer Care Provider 05/12/25 documented as of this encounter
--- OUTSIDE RECORDS SUMMARY | 2025-05-22 16:06 | XMS_ITS | Encounter Summary ---
Author Organization [place] Address [address] [facility] [place] [address] Care Team Providers Care Drill Press Operator Name Role Phone Cosme Wayne MD Unavailable [phone] Cosme Wayne MD Primary Care Provider + Deshawn Veloz MD Unavailable Deshawn Veloz MD Unavailable Neri Yusuf DPM Unavailable [phone] Mindy Harrison MD Unavailable Mary Trent-C Unavailable [phone] Karine Rangel [facility] Unavailable [phone] Karine Rangel [facility] Unavailable [phone] Mariana Queen MD Unavailable [phone] Devon Hernandez MD Unavailable [phone] Mary Trent-C Unavailable [phone] Cal Zelaya PA-C Unavailable [phone] Mary Trent-Baldemar Unavailable [phone] Cal Zelaya-C Unavailable [phone] Devon Hernandez MD Unavailable Encounter Details Date Type Department Care Team (Late st Contact Info) Description 09/11/2023 MyC Medical Advice [facility] [address] [phone] Cosme Wayne MD [address] 912610 Social History Tobacco Use Types Packs/Day Years Used Date Smoking Tobacco: Former Cigarettes 0.5 17 0 10/21/1982 - 10/21/1999 Smokeless Tobacco: Never Alcohol Use Standard Drinks/Week Comments Yes 4 (1 standard drink = 0.6 oz pur e alcohol) PHQ-2 Answer Date Recorded PHQ-2 Score 2 06/03/2023 Adolescent Education Answer Date Record ed Getting School Help Needed Not on file 07/20 Sex and Gender Information Value Date Recorded Sex Assigned at Male 07/22/2021 2:30 PM CDT Legal Sex Male 3:12 AM ASSISTANT GUEST SERVICES MANAGER Gender Identity Male 07/22/2021 2:30 PM CDT Sexual Orientation Straight 07/22/2021 2: 30 PM CDT documented as of this encounter Plan of Treatment Upcoming Encounters Date Type Department Care Team (Late st Contact Info) Description 05/28/2025 1:40 PM CDT Therapy Visit [facility] [id number] [place] [address] [place] [address] [phone] Mary Trent PA-C [address] [place] [address] [place] [address] [facility] [address] [place] [address] 06/04/2025 1:40 PM CDT Therapy Visit [facility] [address] [facility] [address] [place] [phone] Mary Trent PA-C [address] [place] 44[address] [place] [address] [place], [place] [address] 07/01/2025 10:30 AM CDT Virtual Visit [facility] [place] [address] [facility] [address] [place] [phone] Mary Trent, PA-C [address] [place], [place] [address] 07/01/2025 11:00 AM CDT Virtual Visit [facility] [place] [address] [facility] [address] [place] [phone] Christina Paz, RD, LD [address] [address]85 09/20/2025 10:00 AM ASSISTANT GUEST SERVICES MANAGER Office Visit [facility] [place] [address] [facility], [address] [place] [phone] Deshawn Veloz MD [address] [place] [address] documented as of this encounter Visit Diagnoses Not on filedocumented in this encounter Additional Health Concerns Infection Onset Date Last Indicated Resolved Time Rule Out COVID-19 01/31/2025 01/31/2025 01/31/2025 1:07 PM CDT COVID-19 01/31/2025 01/31/2025 02/11/2025 11:3 9 PM CDT Assessment Noted Time PHQ-9 Depression Total Score: 3 01/30/20 23 9:35 AM CDT documented as of this encounter Care Teams Drill Press Operator Relationship Specialty Start Date End Date Cosme Wayne MD [address] [place] [address] 021710 PCP - General Internal Medicine 08/27/22 Cosme Wayne MD [address] [place] [address] Assigned PCP 08/13/21 Deshawn Veloz MD [address] [place] [address] Neurology 09/24/22 Deshawn Veloz MD [address] [place] [address] Assigned Neuroscience Provider 10/13/22 Neri Yusuf DPM [address] [facility] [address] [place] [address] Assigned Surgical Provider 11/24/22 03/11/24 Mindy Harrison MD [facility] [address] [place] [address] Nephrology 04/22/23 Mary Trent PA-C [address] [place] [address] Assigned Surgical Provider 07/13/24 09/11/24 Karine Rangel RPH [address] [place] [address] Pharmacist Pharmacist Admitting Office Escort 09/07/24 Karine Rangel RPH [address] [place] [address] Assigned [place] Pharmacist 09/12/24 Mariana Queen MD [address] [place] [address] Assigned Surgical Provider 09/12/24 01/09/25 Devon Hernandez MD [address] [place] 64[address] Hematology & Oncology 12/23/24 Mary Trent PA-C [address] [place] [address] Physician Reproduction Production Manager Bariatric 12/23/24 Cal Zelaya PA-C 909 [place] [address] Physician Reproduction Production Manager Gastroenterology 12/28/24 Mary Trent PA-C [address] [place] [address] Assigned Surgical Provider 01/10/25 Cal Zelaya PA-C 909 [place] [address] Assigned Gastroenterology Provider 03/12/25 Devon Hernandez MD [address] [place] 129235 Assigned Cancer Care Provider 05/12/25 documented as of this encounter
--- OUTSIDE RECORDS SUMMARY | 2025-05-22 16:06 | XMS_ITS | Encounter Summary ---
Author Organization [place] Address [address] [facility] [place] [address] Care Team Providers Care Wholesaler Name Role Phone Cosme Wayne MD Unavailable [phone] Cosme Wayne MD Primary Care Provider + Deshawn Veloz MD Unavailable Deshawn Veloz MD Unavailable Neri Yusuf DPM Unavailable [phone] Mindy Harrison MD Unavailable Mary Trent-C Unavailable [phone] Karine Rangel [facility] Unavailable [phone] Karine Rangel [facility] Unavailable [phone] Mariana Queen MD Unavailable [phone] Devon Hernandez MD Unavailable [phone] Mary Trent-C Unavailable [phone] Cal Zelaya PA-C Unavailable [phone] Mary Trent-Baldemar Unavailable [phone] Cal Zelaya-C Unavailable [phone] Devon Hernandez MD Unavailable [phone] Encounter Details Date Type Department Care Team (Late st Contact Info) Description 05/09/2023 MyC Medical Advice [facility] [address] [phone] Cosme Wayne MD [address] [id number] Social History Tobacco Use Types Packs/Day Years Used Date Smoking Tobacco: Former Cigarettes 0.5 17 0 10/21/1982 - 10/21/1999 Smokeless Tobacco: Never Alcohol Use Standard Drinks/Week Comments Yes 4 (1 standard drink = 0.6 oz pur e alcohol) PHQ-2 Answer Date Recorded PHQ-2 Score 1 01/29/2023 Sex and Gender Information Value Date Recorded Sex Assigned at Male 07/22/2021 2:30 PM CDT Legal Sex Male 3:12 AM SLITTER PROCESSED FILM Gender Identity Male 07/22/2021 2:30 PM CDT Sexual Orientation Straight 07/22/2021 2: 30 PM CDT COVID-19 Exposure Response Date Recorded In the last 10 days, have yo u been in contact with someone who was confirmed or suspected to have Coronavirus/COVID-19? Unable to assess 05/08/2023 12:15 PM CDT documented as of this encounter Plan of Treatment Upcoming Encounters Date Type Department Care Team (Late st Contact Info) Description 05/28/2025 1:40 PM CDT Therapy Visit [facility] [address] [facility] [address] [place] [phone] Mary Trent PA-C [address] [place] [address] [place] [address] [place], [place] [address] 06/04/2025 1:40 PM CDT Therapy Visit [facility] [address] [facility] [address] [place] [phone] Mary Trent PA-C [address] [place] [address] [place] [address] [place], [place] 21979[address] 07/01/2025 10:30 AM CDT Virtual Visit [facility] [place] [address] [facility] [address] [place] [phone] Mary Trent PA-C [address] [facility] [address] [place] [address] 07/01/2025 11:00 AM CDT Virtual Visit [facility] [place] [address] [facility] [address] [place] [phone] Christina Paz, RD, [place] [address] [facility] [address] [place] [id number] 09/20/2025 10:00 AM SLITTER PROCESSED FILM Office Visit [facility] [place] [address] [facility], [address] [place] [phone] Deshawn Veloz MD [address] [facility] [place] [address] documented as of this encounter Visit Diagnoses Not on filedocumented in this encounter Additional Health Concerns Infection Onset Date Last Indicated Resolved Time Rule Out COVID-19 01/31/2025 01/31/2025 01/31/2025 1:07 PM CDT COVID-19 01/31/2025 01/31/2025 02/11/2025 11:3 9 PM CDT Assessment Noted Time PHQ-9 Depression Total Score: 3 01/30/20 23 9:35 AM CDT documented as of this encounter Care Teams Wholesaler Relationship Specialty Start Date End Date Cosme Wayne MD [address] [place] [place] [address] PCP - General Internal Medicine 08/27/22 Cosme Wayne MD [address] [place] [place] [address] Assigned PCP 08/13/21 Deshawn Veloz MD [address] [place] [address] Neurology 09/24/22 Deshawn Veloz MD [address] [place] 7209[address] Assigned Neuroscience Provider 10/13/22 Neri Yusuf DPM [address] [facility] [address] [place] [address] Assigned Surgical Provider 11/24/22 03/11/24 [place] [address] [place] [address] Nephrology 04/22/23 Mary Trent PA-C [address] [place] [address] Assigned Surgical Provider 07/13/24 09/11/24 Karine Rangel RPH 9 [place] [address] Pharmacist Pharmacist Thermite Bomb Loader 09/07/24 Karine Rangel [facility] 9[address] [place], [place] 590525 Assigned MTM Pharmacist 09/12/24 Mariana Queen MD [address] [place], [place] 328767 Assigned Surgical Provider 09/12/24 01/09/25 Devon Hernandez MD [address] [facility] [place] 7214[address] Hematology & Oncology 12/23/24 Mary Trent PA-C [address] [place], [place] [address] Physician Machinery Engineer Bariatric 12/23/24 Cal Zelaya PA-C [address] [place] [address] 381135 Physician Machinery Engineer Gastroenterology 12/28/24 Mary Trent PA-C [address] [place], [place] 89[address] Assigned Surgical Provider 01/10/25 Cal Zelaya PA-C 909 [place], [place] 603735 Assigned Gastroenterology Provider 03/12/25 Devon Hernandez MD [address] [place] 88[address] Assigned Cancer Care Provider 05/12/25 documented as of this encounter
--- OUTSIDE RECORDS SUMMARY | 2025-05-22 16:06 | XMS_ITS | Encounter Summary ---
Author Organization [place] Address [address] [facility] [place] [address] Care Team Providers Care Rotary Cutter Operator Name Role Phone Cosme Wayne MD Unavailable [phone] Cosme Wayne MD Primary Care Provider + Deshawn Veloz MD Unavailable Deshawn Veloz MD Unavailable Mindy Harrison MD Unavailable Karine Rangel [facility] Unavailable [phone] Karine Rangel [facility] Unavailable [phone] Mariana Queen MD Unavailable [phone] Devon Hernandez MD Unavailable [phone] Mary Trent-C Unavailable [phone] Cal Zelaya-C Unavailable [phone] Mary Trent-Baldemar Unavailable [phone] Cal Zelaya PA-C Unavailable [phone] Devon Hernandez MD Unavailable [phone] Encounter Details Date Type Department Care Team (Late st Contact Info) Description 01/09/2025 [facility] Neurology [address], [address] [place] [address] Deshawn Veloz MD [address] [place] [address] Generalized weakness Social History Tobacco Use Types Packs/Day Years [...] relatives? Three times a week 12/04/2023 Attends Mosque Services Not on file 12/04 Active Member of Clubs or Organizations Not on f ile 12/04/2023 Attends Club or Organization Meetings Not on abad e 12/04/2023 Marital Status Not on file 12/04/2023 PHQ-2 Answer Date Recorded PHQ-2 Score 3 12/17/2024 [facility] - [...] PM CDT Legal Sex Male 3:12 AM AIRCRAFT ENGINEER Gender Identity Male 07/22/2021 2:30 PM CDT Sexual Orientation Straight 07/22/2021 2: 30 PM CDT documented as of this encounter Miscellaneous Notes * Telephone Encounter - Jane Clinton RN - 01/11/2025 11:01 AM CDT 01/11/25 9:27 AM Please check with the patient on how his pain is controlled. We could continue 225 mg twice daily if his pain is currently controlled and he tolerates this dose. Thanks, Deshawn Veloz MD. Followed up with pt. Jane Herrera RN, BSN [facility] * Telephone Encounter - Jamia De Jesus RN - 01/11/2025 9:00 AM CDT Per 12/17/24 discharge note: Also discharging on increased dose of pregabalin at 225 mg twice a day. Pending Prescriptions: Disp Refills pregabalin (LYRICA) 225 MG capsule 60 cap*1 Sig: Take 1 capsule (225 mg) by mouth 2 times daily. Routing to provider to review and advise on refill. Jamia RN, BSN [facility] documented in this encounter Plan of Treatment Upcoming Encounters Date Type Department Care Team (Late st Contact Info) Description 05/28/2025 1:40 PM CDT Therapy Visit [facility] [address] [place] [address] [place] [phone] Mary Trent PA-C [address] [facility] [place] [address] [place] [address] [place] [address] 06/04/2025 1:40 PM CDT Therapy Visit [facility] [address] [facility] [address] [place] [phone] Mary Trent PA-C [address] [facility] [place] [address] [place] [address] [place] [address] 07/01/2025 10:30 AM CDT Virtual Visit [facility] [address] [facility] [place] [phone] Mary Trent PA-C [address] [facility] [place] [address] 07/01/2025 11:00 AM CDT Virtual Visit [facility] [place] [address] [facility] [address] [place] [phone] Christina Paz, RD, [place] [address] [place] [address] 09/20/2025 10:00 AM AIRCRAFT ENGINEER Office Visit [facility] - [place] [address] [facility], [address] [place] [phone] Deshawn Veloz MD [address] [place] 614745 documented as of this encounter Visit Diagnoses Diagnosis Generalized weakness Other malaise and fatigue documented in this encounter Additional Health Concerns Infection Onset Date Last Indicated Resolved Time Rule Out COVID-19 01/31/2025 01/31/2025 01/31/2025 1:07 PM CDT COVID-19 01/31/2025 01/31/2025 02/11/2025 11:3 9 PM CDT Assessment Noted Time PHQ-9 Depression Total Score: 14 025 10:39 AM AIRCRAFT ENGINEER documented as of this encounter Care Teams Rotary Cutter Operator Relationship Specialty Start Date End Date Cosme Wayne MD [address] [place] [address] PCP - General Internal Medicine 08/27/22 Cosme Wayne MD [address] [place] [address] Assigned PCP 08/13/21 Deshawn Veloz MD [address] [place] [address] Neurology 09/24/22 Deshawn Veloz MD [address] [address] [place] [address]45 Assigned Neuroscience Provider 10/13/22 Mindy Harrison MD [address] [place] 2[address]25 Nephrology 04/22/23 Karine Rangel [facility] 9 [place], [place] 315875 Pharmacist Pharmacist Powder Mill Operator 09/07/24 Karine Rangel [facility] [address] [place] [address] 835305 Assigned MTM Pharmacist 09/12/24 Mariana Queen MD [address] [place], [place] 73[address]87 Assigned Surgical Provider 09/12/24 01/09/25 Devon Hernandez MD [address] [place] [address]245 Hematology & Oncology 12/23/24 Mary Trent PA-C [address] [place] [address] Physician Mrp Controller Bariatric 12/23/24 Cal Zelaya PA-C [address] [place], [place] [address] Physician Mrp Controller Gastroenterology 12/28/24 Mary Trent PA-C [address] [place] [address] Assigned Surgical Provider 01/10/25 Cal Zelaya PA-C [address] [place], [place] 5[address] Assigned Gastroenterology Provider 03/12/25 Devon Hernandez MD [address] [place] 8117[address] Assigned Cancer Care Provider 05/12/25 documented as of this encounter
--- OUTSIDE RECORDS SUMMARY | 2025-05-22 16:06 | XMS_ITS | Encounter Summary ---
Author Organization [place] Address [address] [facility] [place] [address] Care Team Providers Care Assembler Garment Form Name Role Phone Cosme Wayne MD Unavailable [phone] Cosme Wayne MD Primary Care Provider + Deshawn Veloz MD Unavailable Deshawn Veloz MD Unavailable Mindy Harrison MD Unavailable Karine Rangel [facility] Unavailable [phone] Karine Rangel [facility] Unavailable [phone] Devon Hernandez MD Unavailable [phone] Mary Trent-C Unavailable [phone] Cal Zelaya-C Unavailable [phone] Mary Trent-C Unavailable [phone] Cal Zelaya-C Unavailable [phone] Devon Hernandez MD Unavailable [phone] Encounter Details Date Type Department Care Team (Late st Contact Info) Description 02/12/2025 [facility] [address] [address] Amber Ta, RN Social History Tobacco Use Types Packs/Day Years [...] relatives? Three times a week 12/04/2023 Attends Jew Services Not on file 12/04 Active Member of Clubs or Organizations Not on f ile 12/04/2023 Attends Club or Organization Meetings Not on abad e 12/04/2023 Marital Status Not on file 12/04/2023 PHQ-2 Answer Date Recorded PHQ-2 Score 2 02/11/2025 [facility] - [...] in an abandoned building, in an overnight assisted, or couch-surfing.) Yes 11/29/2024 Are you worried [...] PM CDT Legal Sex Male 3:12 AM IN HOME NANNY Gender Identity Male 07/22/2021 2:30 PM CDT Sexual Orientation Straight 07/22/2021 2: 30 PM CDT documented as of this encounter Plan of Treatment Upcoming Encounters Date Type Department Care Team (Late st Contact Info) Description 05/28/2025 1:40 PM CDT Therapy Visit [address] [phone] Mary Trent PA-C [address] [place] [address] [place] [address] [place] [place] [address] 06/04/2025 1:40 PM CDT Therapy Visit [address] [phone] Mary Trent PA-C [address] [place] [address] 979695 [place] [address] [place] [address] 07/01/2025 10:30 AM CDT Virtual Visit [facility] [place] [address] [facility] [address] [place] [phone] Mary Trent PA-C [address] [facility] [address] [place] [address] 07/01/2025 11:00 AM CDT Virtual Visit [facility] [place] [address] [facility] [address] [place] [phone] Christina Paz, RD, [place] [address] [facility] [place] [address] 09/20/2025 10:00 AM IN HOME NANNY Office Visit [facility] [place] [address] [facility], [address] [place] [phone] Deshawn Veloz MD [address] [place] [place] [address] documented as of this encounter Visit Diagnoses Not on filedocumented in this encounter Additional Health Concerns Assessment Noted Time PHQ-9 Depression Total Score: 8 02/12/20 25 8:47 AM CDT documented as of this encounter Care Teams Assembler Garment Form Relationship Specialty Start Date End Date Cosme Wayne MD [address] [place] [address] PCP - General Internal Medicine 08/27/22 Cosme Wayne MD [address] [place] [address] Assigned PCP 08/13/21 Deshawn Veloz MD [address] [place] [id number] Neurology 09/24/22 Deshawn Veloz MD [address] [place] 627215 Assigned Neuroscience Provider 10/13/22 Mindy Harrison MD [address] [place] 0500[address] Nephrology 04/22/23 Karine Rangel [facility] 9 [place], [place] [address] Pharmacist Pharmacist Registration Manager 09/07/24 Karine Rangel [facility] 9 [place], [place] 913925 Assigned MTM Pharmacist 09/12/24 Devon Hernandez MD [address] [place] 964525 Hematology & Oncology 12/23/24 Mary Trent PA-C [address] [place] [address] Physician Wilderness Guide Bariatric 12/23/24 Cal Zelaya PA-C [address] [place], [place] 97[address] Physician Wilderness Guide Gastroenterology 12/28/24 Mary rTent PA-C [address] [place] 345795 Assigned Surgical Provider 01/10/25 Cal Zelaya PA-C [address] [place], [place] 690[address] Assigned Gastroenterology Provider 03/12/25 Devon Hernandez MD [address] [place] [id number] Assigned Cancer Care Provider 05/12/25 documented as of this encounter
--- OUTSIDE RECORDS SUMMARY | 2025-05-22 16:06 | XMS_ITS | Encounter Summary ---
Author Organization [place] Address [address] [facility] [place] [address] Care Team Providers Care Testing Machine Operator Name Role Phone [facility] Primary Care Provider + Cosme Wayne MD Unavailable [phone] Cosme Wayne MD Primary Care Provider + Neri Yusuf DPM Unavailable [phone] Deshawn Veloz MD Unavailable Deshawn Veloz MD Unavailable Neri YusufM Unavailable [phone] Mindy Harrison MD Unavailable Mary Trent-C Unavailable [phone] Karine Rangel [facility] Unavailable [phone] Karine Rangel [facility] Unavailable [phone] Mariana Queen MD Unavailable [phone] Devon Hernandez MD Unavailable [phone] Mary Trent-C Unavailable [phone] Cal Zelaya-C Unavailable [phone] Mary Trent-C Unavailable [phone] Cal Zelaya-C Unavailable [phone] Devon Hernandez MD Unavailable [phone] Encounter Details Date Type Department Care Team (Late st Contact Info) Description 06/13/2022 MyC Medical Advice [facility] [address] [phone] Cosme Wayne MD [address] [id number] Social History Tobacco Use Types Packs/Day Years Used Date Smoking Tobacco: Former Cigarettes 0.5 17 0 10/21/1982 - 10/21/1999 Smokeless Tobacco: Never Alcohol Use Standard Drinks/Week Comments Yes 4 (1 standard drink = 0.6 oz pur e alcohol) PHQ-2 Answer Date Recorded PHQ-2 Score 2 04/12/2022 Sex and Gender Information Value Date Recorded Sex Assigned at Male 07/22/2021 2:30 PM CDT Legal Sex Male 3:12 AM LIQUEFIED NATURAL 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 Bety Hare RN * Telephone Encounter - Bety Hare RN - 06/14/2022 9:57 AM CDT Please see attached MC and advise Bety Hare RN documented in this encounter Plan of Treatment Upcoming Encounters Date Type Department Care Team (Late st Contact Info) Description 05/28/2025 1:40 PM CDT Therapy Visit [facility] [place] [address] [place] [address] [phone] Mary Trent PA-C [address] [place] 654[address] [place] [address] [place] [id number] 06/04/2025 1:40 PM CDT Therapy Visit [facility] [address] [place] [phone] Mary Trent PA-C [address] [place] [address] [place] [address] [place] 9618[address] 07/01/2025 10:30 AM CDT Virtual Visit [facility] [place] [address] [facility] [address] [place] [phone] Mary Trent PA-C [address] [place] [address] 07/01/2025 11:00 AM CDT Virtual Visit [facility] [place] [address] [facility] [address] [place] [phone] Christina Paz, RD, [place] [address] [facility] [address] [place] [id number] 09/20/2025 10:00 AM LIQUEFIED NATURAL GAS OPERATOR Office Visit [facility] [place] [address] [facility], [address] [place] [phone] MagdielDeshawn galindo MD [address] [place] [address] documented as of this encounter Visit Diagnoses Not on filedocumented in this encounter Additional Health Concerns Infection Onset Date Last Indicated Resolved Time Rule Out COVID-19 01/31/2025 01/31/2025 01/31/2025 1:07 PM CDT COVID-19 01/31/2025 01/31/2025 02/11/2025 11:3 9 PM CDT Assessment Noted Time PHQ-9 Depression Total Score: 8 04/09/20 8:14 PM CDT documented as of this encounter Care Teams Testing Machine Operator Relationship Specialty Start Date End Date [facility] PCP - General Family Practice 12/14/19 08/26/22 Cosme Wayne MD [address] [place] [address] PCP - General Internal Medicine 08/27/22 Cosme Wayne MD [address] [place] [address] Assigned PCP 08/13/21 Neri Yusuf DPM [address] [facility] [address] [place] [address] Assigned Musculoskeletal Provider 09/15/22 11/23/22 Deshawn Veloz MD [address] [place] [address] Neurology 09/24/22 Deshawn Veloz MD [address] [place] [address] Assigned Neuroscience Provider 10/13/22 Neri Yusuf DPM [address] [facility] [address] [place], [place] [address] Assigned Surgical Provider 11/24/22 03/11/24 [place] [address] [facility] [address] [place] [address] Nephrology 04/22/23 Mary Trent PA-C [address] [place] 535565 Assigned Surgical Provider 07/13/24 09/11/24 Karine Rangel [facility] 9 [place] [address] Pharmacist Pharmacist Medical Information Officer 09/07/24 Karine Rangel [facility] 9 [place] [address] Assigned MTM Pharmacist 09/12/24 Mariana Queen MD [address] [place], [place] [address] Assigned Surgical Provider 09/12/24 01/09/25 Devon Hernandez MD [address] [place] [id number] Hematology & Oncology 12/23/24 Mary Trent PA-C [address] [place] [id number] Physician Surgical Sales Representative Bariatric 12/23/24 Cal Zelaya PA-C 909 [place] [address] Physician Surgical Sales Representative Gastroenterology 12/28/24 Mary Trent PA-C [address] [place] [address] Assigned Surgical Provider 01/10/25 Cal Zelaya PA-C [address] [place] [address] Assigned Gastroenterology Provider 03/12/25 Devon Hernandez MD [address] [place] [address] Assigned Cancer Care Provider 05/12/25 documented as of this encounter
--- OUTSIDE RECORDS SUMMARY | 2025-05-22 16:06 | XMS_ITS | Encounter Summary ---
Author Organization [place] Address [address] [facility] [place] [address] Care Team Providers Care Tab Cutting Machine Operator Name Role Phone Cosme Wayne MD Unavailable [phone] Cosme Wayne MD Primary Care Provider + Deshawn Veloz MD Unavailable Deshawn Veloz MD Unavailable Mindy Harrison MD Unavailable Karine Rangel [facility] Unavailable [phone] Karine Rangel [facility] Unavailable [phone] Devon Hernandez MD Unavailable [phone] Mary Trent PA-C Unavailable [phone] Cal Zelaya PA-C Unavailable [phone] Mary Trent PA-C Unavailable [phone] Cal Zelaya PA-C Unavailable [phone] Devon Hernandez MD Unavailable [phone] Encounter Details Date Type Department Care Team (Late st Contact Info) Description 01/21/2025 [facility] [place] [address] [facility] [address] [place] [phone] Mary Trent PA-C [address] [facility] [address] [place] [address] Social History Tobacco Use Types Packs/Day Years [...] relatives? 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 Gender Identity Male 07/22/2021 2:30 PM CDT Sexual Orientation Straight 07/22/2021 2: 30 PM CDT documented as of this encounter Plan of Treatment Upcoming Encounters Date Type Department Care Team (Late st Contact Info) Description 05/28/2025 1:40 PM CDT Therapy Visit [facility] [address] [facility] [address] [place] [phone] Mary Trent PA-C [address] [place] [address] [place] [address] [facility] [address] [place], [place] [id number] 06/04/2025 1:40 PM CDT Therapy Visit [facility] [address] [facility] [address] [place] [phone] Mary Trent PA-C [address] [place] [address] [place] [address] [place], [place] [address] 07/01/2025 10:30 AM CDT Virtual Visit [facility] [place] [address] [facility] [address] [place], [place] [phone] Mary Trent PA-C [address] [facility] [address] [place] [id number] 07/01/2025 11:00 AM CDT Virtual Visit [facility] [place] [address] [facility] [address] [place] [phone] Christina Paz, RD, [place] [address] [facility] [place] [id number] 09/20/2025 10:00 AM ASSEMBLING FABRICATOR Office Visit [facility] [place] [address] [facility], [address] [place] [phone] Deshawn Veloz MD [address] [facility] [place] 8[address] documented as of this encounter Visit Diagnoses Not on filedocumented in this encounter Additional Health Concerns Infection Onset Date Last Indicated Resolved Time Rule Out COVID-19 01/31/2025 01/31/2025 01/31/2025 1:07 PM CDT COVID-19 01/31/2025 01/31/2025 02/11/2025 11:3 9 PM CDT Assessment Noted Time PHQ-9 Depression Total Score: 14 12/17/2 025 10:39 AM ASSEMBLING FABRICATOR documented as of this encounter Care Teams Tab Cutting Machine Operator Relationship Specialty Start Date End Date Cosme Wayne MD [address] [place] [address], [place] [address] PCP - General Internal Medicine 08/27/22 Cosme Wayne MD [address] [place] [address], [place] [address] Assigned PCP 08/13/21 Deshawn Veloz MD [address] [place] 6[address] Neurology 09/24/22 Deshawn Veloz MD [address] [place] 456995 Assigned Neuroscience Provider 10/13/22 Mindy Harrison MD [address] [place] [id number] Nephrology 04/22/23 Karine Rangel [facility] [address] [place] [address] Pharmacist Pharmacist Health Policy Nurse 09/07/24 Karine Rangel [facility] 9 [place] [address] Assigned MTM Pharmacist 09/12/24 Devon Hernandez MD [address] [place] [address] Hematology & Oncology 12/23/24 TrentMary PA-C [address] [place] [address] Physician Core Shaper Top Bariatric 12/23/24 Cal Zelaya PA-C [address] [place], [place] [address] Physician Core Shaper Top Gastroenterology 12/28/24 Mary Trent PA-C [address] [place] [address] Assigned Surgical Provider 01/10/25 Cal Zelaya PA-C [address] [place] [address] 833025 Assigned Gastroenterology Provider 03/12/25 Devon Hernandez MD [address] [place] [address] Assigned Cancer Care Provider 05/12/25 documented as of this encounter
--- OUTSIDE RECORDS SUMMARY | 2025-05-22 16:06 | XMS_ITS | Encounter Summary ---
Author Organization [place] Address [address] [facility] [place] [address] Care Team Providers Care Fund Director Name Role Phone Cosme Wayne MD Unavailable [phone] Cosme Wayne MD Primary Care Provider + Deshawn Veloz MD Unavailable Deshawn Veloz MD Unavailable Mindy Harrison MD Unavailable Karine Rangel [facility] Unavailable [phone] Karine Rangel [facility] Unavailable [phone] Devon Hernandez MD Unavailable [phone] Mary Trent PA-C Unavailable [phone] Cal Zelaya PA-C Unavailable [phone] Mary Trent PA-C Unavailable [phone] Cal Zelaya PA-C Unavailable Encounter Details Date Type Department Care Team (Late st Contact Info) Description 03/03/2025 Results Follow-Up [facility] [place] [address] [facility] [address] [place] [address] Mary Trent PA-C [address] [facility] [address] [place] [address] Dx: Bariatric surgery status (Primary Dx) Social History Tobacco Use Types [...] relatives? Three times a week 12/04/2023 Attends Voodoo Services Not on file 12/04 Active Member of Clubs or Organizations Not on f ile 12/04/2023 Attends Club or Organization Meetings Not on abad e 12/04/2023 Marital Status Not on file 12/04/2023 PHQ-2 Answer Date Recorded PHQ-2 Score 2 02/11/2025 [facility] - [...] in an abandoned building, in an overnight fdc, or couch-surfing.) Yes 11/29/2024 Are you worried [...] PM CDT Legal Sex Male 3:12 AM TRIAL LAWYER Gender Identity Male 07/22/2021 2:30 PM CDT Sexual Orientation Straight 07/22/2021 2: 30 PM CDT documented as of this encounter Plan of Treatment Upcoming Encounters Date Type Department Care Team (Late st Contact Info) Description 05/28/2025 1:40 PM CDT Therapy Visit [facility] [address] [facility] [address] [place] [phone] Mary Trent PA-C [address] [place] [address] [place] [address] [place], [place] [id number] 06/04/2025 1:40 PM CDT Therapy Visit [facility] [address] [facility] [address] [place] [phone] Mary Tretn PA-C [address] [place] 84[address] [place] [address] [place], [place] [address] 07/01/2025 10:30 AM CDT Virtual Visit [facility] [place] [address] [facility] [address] [place] [phone] Mary Trent PA-C [address] [facility] [address] [place] [id number] 07/01/2025 11:00 AM CDT Virtual Visit [facility] [place] [address] [facility] [address] [place] [phone] Christina Pza, RD, [place] 64[address] [facility] [place] [address]605 09/20/2025 10:00 AM TRIAL LAWYER Office Visit [facility] [place] [address] [facility], [address] [place] [phone] Deshawn Veloz MD [address] [place], [place] [address] Scheduled Orders Name Type Priority Associated Diagnoses Orde r Schedule Magnesium Lab Routine Postsurgical malabsorption Expected: 04/03/2025 (Approximate), Expires: 08/30/2025 documented as of this encounter Visit Diagnoses Diagnosis Bariatric surgery status- 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 documented in this encounter Additional Health Concerns Assessment Noted Time PHQ-9 Depression Total Score: 8 02/12/20 25 8:47 AM CDT documented as of this encounter Care Teams Fund Director Relationship Specialty Start Date End Date Cosme Wayne MD [address] [place] [address], [place] [address] PCP - General Internal Medicine 08/27/22 Cosme Wayne MD [address] [place] [address], [place] [address] Assigned PCP 08/13/21 Deshawn Veloz MD [address] [place] 9[address]165 Neurology 09/24/22 Deshawn Veloz MD [address] [place] 8[address]35 Assigned Neuroscience Provider 10/13/22 Mindy Harrison MD [address] [place] [address] Nephrology 04/22/23 Karine Rangel [facility] 9 [place] [address] Pharmacist Pharmacist Family Engagement Specialist 09/07/24 Karine Rangel [facility] [address] [place] [address] Assigned MTM Pharmacist 09/12/24 Devon Hernandez MD [address] [place] [address] Hematology & Oncology 12/23/24 Mary Trent, PA-C [address] [place] [address] Physician Culinary Worker Bariatric 12/23/24 Cal Zelaya PA-C [address]09 [place], [place] 348[address] Physician Culinary Worker Gastroenterology 12/28/24 Mary Tretn PA-C [address] [place] [address] Assigned Surgical Provider 01/10/25 Cal Zelaya PA-C [address] [place] [address] 612875 Assigned Gastroenterology Provider 03/12/25 documented as of this encounter
--- OUTSIDE RECORDS SUMMARY | 2025-05-22 16:06 | XMS_ITS | Encounter Summary ---
Author Organization [place] Address [facility] [address] Care Team Providers Care Coal Picker Name Role Phone Cosme Wayne MD Unavailable [phone] Cosme Wayne MD Primary Care Provider + Deshawn Veloz MD Unavailable Deshawn Veloz MD Unavailable Mindy Harrison MD Unavailable Karine Rangel [facility] Unavailable [phone] Karine Rangel Nicolle Unavailable [phone] Devon Hernandez MD Unavailable [phone] Mary Trent PA-C Unavailable [phone] Cal Zelaya PA-C Unavailable [phone] Mary Trent PA-C Unavailable [phone] Cal Zelaya PA-C Unavailable [phone] Encounter Details Date Type Department Care Team (Late st Contact Info) Description 03/02/2025 Results Follow-Up [facility]ology [facility] [address] [address] Cal Zelaya PA-C [address] [place] [address] Subj: Message about your results Social History Tobacco Use Types Packs/Day Years [...] relatives? 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 Gender Identity Male 07/22/2021 2:30 PM CDT Sexual Orientation Straight 07/22/2021 2: 30 PM CDT documented as of this encounter Plan of Treatment Upcoming Encounters Date Type Department Care Team (Late st Contact Info) Description 05/28/2025 1:40 PM CDT Therapy Visit [address] [phone] Mary Trent PA-C [address] [place] [address] [place] [address] [place] [address] [facility] [address] [place], [place] [address] 06/04/2025 1:40 PM CDT Therapy Visit [facility] [address] [phone] Mary Trent PA-C [address] [place] [address] [place] [address] [place] [address] 07/01/2025 10:30 AM CDT Virtual Visit [facility] [place] [address] [facility] [address] [place] [phone] Mary Trent PAAllisonC [address] [facility] [address] [place] [address] 07/01/2025 11:00 AM CDT Virtual Visit [facility] [place] [address] [facility] [address] [place] [phone] Christina Paz, RD, LD [address] [place] [address] 09/20/2025 10:00 AM ASSISTANT FOOD SERVICE MANAGER Office Visit [facility] [place] [address] [facility], [address] [place] [phone] Deshawn Veloz MD [address] [facility] [place] [address] documented as of this encounter Visit Diagnoses Not on filedocumented in this encounter Additional Health Concerns Assessment Noted Time PHQ-9 Depression Total Score: 8 02/12/20 25 8:47 AM CDT documented as of this encounter Care Teams Coal Picker Relationship Specialty Start Date End Date Cosme Wayne MD [address] [place] [address] PCP - General Internal Medicine 08/27/22 Cosme Wayne MD [address] [place] [address] Assigned PCP 08/13/21 Deshawn Veloz MD [address] [place] [address] Neurology 09/24/22 Deshawn Veloz MD [address] [place] [address] Assigned Neuroscience Provider 10/13/22 Mindy Harrison MD [address] [place] [address] Nephrology 04/22/23 [facility] 909 [place] [address] Pharmacist Pharmacist Housing Director 09/07/24 [facility] 909 [place] [address] Assigned MTM Pharmacist 09/12/24 Devon Hernandez MD [address] [place] [address] Hematology & Oncology 12/23/24 Mary Trent PA-C [address] [place] [address] Physician Mba Internship Bariatric 12/23/24 Cal Zelaya PA-C 909 [place] [address] Physician Mba Internship Gastroenterology 12/28/24 Mary Trent PA-C [address] [facility] [address] [place] [address] Assigned Surgical Provider 01/10/25 Cal Zelaya PA-C 909 [place] [address] Assigned Gastroenterology Provider 03/12/25 documented as of this encounter
--- OUTSIDE RECORDS SUMMARY | 2025-05-22 16:06 | XMS_ITS | Encounter Summary ---
Author Organization [place] Address [address] [place] [address] Care Team Providers Care Rack Maker Name Role Phone Cosme Wayne MD Unavailable [phone] Cosme Wayne MD Primary Care Provider + Deshawn Veloz MD Unavailable Deshawn Veloz MD Unavailable Mindy Harrison MD Unavailable Karine Rangel [facility] Unavailable [phone] Karine Rangel [facility] Unavailable [phone] Mariana Queen MD Unavailable [phone] Devon Hernandez MD Unavailable [phone] Mary Trent-C Unavailable [phone] Cal Zelaya-C Unavailable [phone] Mray Trent-C Unavailable [phone] Cal Zelaya-Baldemar Unavailable [phone] Devon Hernandez MD Unavailable [phone] Encounter Details Date Type Department Care Team (Late st Contact Info) Description 12/29/2024 [facility] [address] [place] [address] Whit Carrasquillo, YARN FINISHER Social History Tobacco Use Types Packs/Day Years [...] relatives? Three times a week 12/04/2023 Attends Congregation Services Not on file 12/04 Active Member of Clubs or Organizations Not on f ile 12/04/2023 Attends Club or Organization Meetings Not on abad e 12/04/2023 Marital Status Not on file 12/04/2023 PHQ-2 Answer Date Recorded PHQ-2 Score 3 12/17/2024 [facility] [place] of Occupat ional Health - Occupational Stress [...] CDT Legal Sex Male 3:12 AM ASSISTANT FACILITY MANAGER Gender Identity Male 07/22/2021 2:30 PM CDT Sexual Orientation Straight 07/22/2021 2: 30 PM CDT documented as of this encounter Plan of Treatment Upcoming Encounters Date Type Department Care Team (Late st Contact Info) Description 05/28/2025 1:40 PM CDT Therapy Visit [facility] [id number] [place] [phone] Mary Trent PA-C [address] [place] [address] [place] [address] [address] 06/04/2025 1:40 PM CDT Therapy Visit [address] [phone] Mary Trent PA-C [address] [place] [address] [place] [address] [place], [place] [address] 07/01/2025 10:30 AM CDT Virtual Visit [facility] Surgical Weight Loss Clinic [place] [address] [facility] [address] [place] [address] Mary Trent PA-C [address] [facility] [address] [place] [address] 07/01/2025 11:00 AM CDT Virtual Visit [facility] Weight [facility] [place] [address] [facility] [address] [place] [phone] Christina Paz, RD, [place] [address] [facility] [place] [address] 09/20/2025 10:00 AM ASSISTANT FACILITY MANAGER Office Visit [facility] Neurology Clinics - [place] [address] [facility], [address] [place] [phone] Deshawn Veloz MD [address] [place] [address] documented as of this encounter Visit Diagnoses Not on filedocumented in this encounter Additional Health Concerns Infection Onset Date Last Indicated Resolved Time Rule Out COVID-19 01/31/2025 01/31/2025 01/31/2025 1:07 PM CDT COVID-19 01/31/2025 01/31/2025 02/11/2025 11:3 9 PM CDT Assessment Noted Time PHQ-9 Depression Total Score: 14 12/17/ 025 10:39 AM ASSISTANT FACILITY MANAGER documented as of this encounter Care Teams Rack Maker Relationship Specialty Start Date End Date Cosme Wayne MD [address] [place] [address] PCP - General Internal Medicine 08/27/22 Cosme Wayne MD [address] [place] [address] Assigned PCP 08/13/21 Deshawn Veloz MD [address] [place] 7674[address] Neurology 09/24/22 Deshawn Veloz MD [address] [place] 409685 Assigned Neuroscience Provider 10/13/22 Mindy Harrison MD [address] [place] [address] Nephrology 04/22/23 Karine Rangel Nicolle [address] [place] [address] 015925 Pharmacist Pharmacist Purse Seining Hand 09/07/24 Karine Rangel Nicolle [address] [place] [address] 512245 Assigned MTM Pharmacist 09/12/24 Mariana Queen MD [address] [place] [address] Assigned Surgical Provider 09/12/24 01/09/25 Devon Hernandez MD [address] [place] [address] Hematology & Oncology 12/23/24 Mary Trent PA-C [address] [place] [address] Physician Digital Media Designer Bariatric 12/23/24 Cal Zelaya PA-C [address] [place] [address] Physician Digital Media Designer Gastroenterology 12/28/24 Mary Trent PA-C [address] [place] [address] Assigned Surgical Provider 01/10/25 Cal Zelaya PA-C [address] [place] [address] Assigned Gastroenterology Provider 03/12/25 Devon Hernandez MD [address] [place] [address] Assigned Cancer Care Provider 05/12/25 documented as of this encounter
--- OUTSIDE RECORDS SUMMARY | 2025-05-22 16:06 | XMS_ITS | Encounter Summary ---
Author Organization [place] Address [address] [facility] [place] [address] Care Team Providers Care Make Ready Mechanic Name Role Phone Cosme Wayne MD Unavailable [phone] Cosme Wayne MD Primary Care Provider + Deshawn Veloz MD Unavailable Deshawn Veloz MD Unavailable Neri Yusuf DPM Unavailable [phone] Mindy Harrison MD Unavailable Mary Trent-C Unavailable [phone] Karine Rangel [facility] Unavailable [phone] Karine Rangel [facility] Unavailable [phone] Mariana Queen MD Unavailable [phone] Devon Hernandez MD Unavailable [phone] Mary TrentC Unavailable [phone] Cal Zelaya-C Unavailable [phone] Mary Trent-Baldemar Unavailable [phone] Cal Zelaya-C Unavailable [phone] Devon Hernandez MD Unavailable [phone] Reason for Visit * Reason Comments Medication Refill Encounter Details Date Type Department Care Team (Late st Contact Info) Description 05/06/2023 Refill [facility] Neurology Clinics - [place] [address] [facility], [address] [place] [address] Deshawn Veloz MD [address] [facility] [place] [id number] Medication Refill Social History Tobacco Use Types Packs/Day Years [...] PM CDT Legal Sex Male 3:12 AM TAPE MAKER Gender Identity Male 07/22/2021 2:30 PM CDT Sexual Orientation Straight 07/22/2021 2: 30 PM CDT COVID-19 Exposure Response Date Recorded In the last 10 days, have yo u been in contact with someone who was confirmed or suspected to have Coronavirus/COVID-19? Unable to assess 05/08/2023 12:15 PM CDT documented as of this encounter Miscellaneous Notes * Telephone Encounter - Daquan Salvador RN - 05/06/2023 3:11 PM CDT Rx Declined, just refilled on 02/28. Currently too early for refilled. Daquan Salvador RN, BSN [facility] Neurology documented in this encounter Plan of Treatment Upcoming Encounters Date Type Department Care Team (Late Contact Info) Description 05/28/2025 1:40 PM CDT Therapy Visit [facility] [address] [facility] [address] [place] [phone] Mary Trent, DAVIDC [address] [facility] [address] [place] [address] [place] [address] [place] [address] 06/04/2025 1:40 PM CDT Therapy Visit [facility] [address] [facility] [address] [place] [phone] Mary Trent PA-C [address] [place] [address] [place] [address] [place] [address] 07/01/2025 10:30 AM CDT Virtual Visit [facility] Surgical Weight Loss Clinic [place] 2[address]75 [facility] [address] [place] [phone] Mary Trent PA-C [address] [facility] [address] [place] [address] 07/01/2025 11:00 AM CDT Virtual Visit [facility] Surgical Weight [facility] [place] [address] [facility] [address] [place] [phone] Christina Paz, RD, [place] [address] [facility] [place] [address] 09/20/2025 10:00 AM TAPE MAKER Office Visit [facility] Neurology Clin[facility] - [place] [address] [facility], [address] [place] [phone] Deshawn Veloz MD [address] [facility] [place] [address] documented as of this encounter Visit Diagnoses Diagnosis Peripheral polyneuropathy Unspecified hereditary and idiopathic peripheral neuropathy Bilateral foot pain Pain in limb documented in this encounter Additional Health Concerns Infection Onset Date Last Indicated Resolved Time Rule Out COVID-19 01/31/2025 01/31/2025 01/31/2025 1:07 PM CDT COVID-19 01/31/2025 01/31/2025 02/11/2025 11:3 9 PM CDT Assessment Noted Time PHQ-9 Depression Total Score: 3 01/30/20 23 9:35 AM CDT documented as of this encounter Care Teams Make Ready Mechanic Relationship Specialty Start Date End Date Cosme Wayne MD [address] [place] [address] PCP - General Internal Medicine 08/27/22 Cosme Wayne MD [address] [place] [address] Assigned PCP 08/13/21 Deshawn Veloz MD [address] [place] [address] Neurology 09/24/22 Deshawn Veloz MD [address] [place] [address] Assigned Neuroscience Provider 10/13/22 Neri Yusuf DPM [address] [address] [address] [place] [address] Assigned Surgical Provider 11/24/22 03/11/24 [place] [address] [address] [place] [address] Nephrology 04/22/23 Mary Trent PA-C [address] [place] [address] Assigned Surgical Provider 07/13/24 09/11/24 Karine Rangel [facility] 9[address] [place], [place] [address] Pharmacist Pharmacist Clinical Program Manager 09/07/24 Karine Rangel [facility] 9[address] [place], [place] 0[address] Assigned MTM Pharmacist 09/12/24 Mariana Queen MD [address] [place], [place] 8429[address] Assigned Surgical Provider 09/12/24 01/09/25 Devon Hernandez MD [address] [place] 36[address] Hematology & Oncology 12/23/24 Mary Trent PA-C [address] 83[address] Physician Machine Setter Automatic Bariatric 12/23/24 Cal Zelaya PA-C 9[address] [place], [place] 5044[address] Physician Machine Setter Automatic Gastroenterology 12/28/24 Mary Trent PA-C [address] [place] [address] [place] 954[address] Assigned Surgical Provider 01/10/25 Cal Zelaya PA-C 909 [place] [address] Assigned Gastroenterology Provider 03/12/25 Devon Hernandez MD [address] [address] Assigned Cancer Care Provider 05/12/25 documented as of this encounter
--- OUTSIDE RECORDS SUMMARY | 2025-05-22 16:06 | XMS_ITS | Encounter Summary ---
Author Organization [place] Address [address] [facility] [place] [address] Care Team Providers Care Flat Grinder Operator Name Role Phone Cosme Wayne MD Unavailable [phone] Cosme Wayne MD Primary Care Provider + Deshawn Veloz MD Unavailable Deshawn Veloz MD Unavailable Mindy Harrison MD Unavailable Karine Rangel [facility] Unavailable [phone] Karine Rangel [facility] Unavailable [phone] Devon Hernandez MD Unavailable [phone] Mary Trent-C Unavailable [phone] Cal Zelaya-C Unavailable [phone] Mary Trent-C Unavailable [phone] Cal Zelaya-C Unavailable [phone] Devon Hernandez MD Unavailable [phone] Encounter Details Date Type Department Care Team (Late st Contact Info) Description 02/08/2025 [facility] Multiple Specialty [facility] [address] [facility] [address] [place] [address] Karine Rangel [address] [address] Social History Tobacco Use Types Packs/Day Years [...] relatives? Three times a week 12/04/2023 Attends Judaism Services Not on file 12/04 Active Member of Clubs or Organizations Not on f ile 12/04/2023 Attends Club or Organization Meetings Not on abad e 12/04/2023 Marital Status Not on file 12/04/2023 PHQ-2 Answer Date Recorded PHQ-2 Score 2 02/11/2025 [facility] of Occupat ional Health - Occupational Stress [...] in an abandoned building, in an overnight jail, or couch-surfing.) Yes 11/29/2024 Are you worried [...] PM CDT Legal Sex Male 3:12 AM STOCKHOLDER Gender Identity Male 07/22/2021 2:30 PM CDT Sexual Orientation Straight 07/22/2021 2: 30 PM CDT documented as of this encounter Plan of Treatment Upcoming Encounters Date Type Department Care Team (Late st Contact Info) Description 05/28/2025 1:40 PM CDT Therapy Visit [address] [phone] Mary Trent PA-C [address] [place] [address] [place] [address] [place] [address] [facility] [address] [place], [place] [address] 06/04/2025 1:40 PM CDT Therapy Visit [facility] [address] [phone] Mary Trent PA-C [address] [place] [address] [place] [address] [place] [address] 07/01/2025 10:30 AM CDT Virtual Visit [facility] Surgical Weight Loss Clinic [place] [address] [facility] [address] [place] [phone] Mary Trent PAAllisonC [address] [place] [id number] 07/01/2025 11:00 AM CDT Virtual Visit [facility] Surgical Weight Loss Clinic [place] [address] [facility] [address] [place] [phone] Christina Paz, RD, [place] [address] [place] [address] 09/20/2025 10:00 AM STOCKHOLDER Office Visit [facility] Neurology Clinics - [place] [address] [facility], [address] [place] [phone] Deshawn Veloz MD [address] [place] [address] documented as of this encounter Visit Diagnoses Not on filedocumented in this encounter Additional Health Concerns Infection Onset Date Last Indicated Resolved Time COVID-19 01/31/2025 01/31/2025 02/11/2025 11:3 9 PM CDT Assessment Noted Time PHQ-9 Depression Total Score: 14 12/17/ 025 10:39 AM STOCKHOLDER documented as of this encounter Care Teams Flat Grinder Operator Relationship Specialty Start Date End Date Cosme Wayne MD [address] [place], [place] [address] PCP - General Internal Medicine 08/27/22 Cosme Wayne MD [address] [place] [address] 163580 Assigned PCP 08/13/21 Deshawn Veloz MD [address] [place] 0427[address] Neurology 09/24/22 Deshawn Veloz MD [address] [place] 9345[address] Assigned Neuroscience Provider 10/13/22 Mindy Harrison MD [address] [place] [address] Nephrology 04/22/23 Karine Rangel RPH [address] [place] [address] [phone] Pharmacist Pharmacist Credit Checker 09/07/24 Karine Rangel RPH [address] [place] [address] Assigned MTM Pharmacist 09/12/24 Devon Hernandez MD [address] [facility] [place] [address] Hematology & Oncology 12/23/24 Mary Trent, PAAllisonC [address] [place] [address] Physician Pension Adviser Bariatric 12/23/24 Cal Zelaya PA-C 9[address] [place] [address] Physician Pension Adviser Gastroenterology 12/28/24 Mary Trent PA-C [address] [facility] [address] [place] [address] Assigned Surgical Provider 01/10/25 Cal Zelaya PA-C [address] [place] [address] Assigned Gastroenterology Provider 03/12/25 Devon Hernandez MD [address] [place] [address] Assigned Cancer Care Provider 05/12/25 documented as of this encounter
--- OUTSIDE RECORDS SUMMARY | 2025-05-22 16:07 | XMS_ITS | Encounter Summary ---
Author Organization [place] Address [address] [facility] [place] [address] Care Team Providers Care Admissions Rn Name Role Phone Cosme Wayne MD Unavailable [phone] Cosme Wayne MD Primary Care Provider + Neri Yusuf DPM Unavailable [phone] Deshawn Veloz MD Unavailable Deshawn Veloz MD Unavailable ParamjitNeri kuo DPM Unavailable [phone] Mindy Harrison MD Unavailable Mary Trent-C Unavailable [phone] Karine Rangel [facility] Unavailable [phone] Karine Rangel [facility] Unavailable [phone] Mariana Queen MD Unavailable [phone] Devon Hernandez MD Unavailable [phone] Mary Trent-C Unavailable [phone] Cal Zelaya-C Unavailable [phone] Mary Trent-C Unavailable [phone] Cal Zelaya-C Unavailable [phone] Devon Hernandez MD Unavailable [phone] Encounter Details Date Type Department Care Team (Late st Contact Info) Description 10/01/2022 MyC Medical Advice Initial Department Darion Ayala Social History Tobacco Use Types Packs/Day Years Used Date Smoking Tobacco: Former Cigarettes 0.5 17 0 10/21/1982 - 10/21/1999 Smokeless Tobacco: Never Alcohol Use Standard Drinks/Week Comments Yes 4 (1 standard drink = 0.6 oz pur e alcohol) PHQ-2 Answer Date Recorded PHQ-2 Score 0 08/30/2022 Sex and Gender Information Value Date Recorded Sex Assigned at Male 07/22/2021 2:30 PM CDT Legal Sex Male 3:12 AM HEALTH AND SAFETY TECHNICIAN Gender Identity Male 07/22/2021 2:30 PM CDT Sexual Orientation Straight 07/22/2021 2: 30 PM CDT COVID-19 Exposure Response Date Recorded In the last 10 days, have yo u been in contact with someone who was confirmed or suspected to have Coronavirus/COVID-19? No / Unsure 10/02/2022 8:48 AM HEALTH AND SAFETY TECHNICIAN documented as of this encounter Plan of Treatment Upcoming Encounters Date Type Department Care Team (Late st Contact Info) Description 05/28/2025 1:40 PM CDT Therapy Visit [facility] [address] [facility] [address] [place] [address] [phone] Mary Trent, PA-C [address] [place] [address] [place] [address] [place] [address] 06/04/2025 1:40 PM CDT Therapy Visit [facility] [address] [facility] [address] [place] [phone] Mary Trent, PA-C [address] [place] [address] [place], [place] [phone] [place] [address] [address] [place] [address] 07/01/2025 10:30 AM CDT Virtual Visit [facility] [place] [address] [facility] [address] [place] [phone] Mary Trent, PA-C [address] [facility] [address] [place] [id number] 07/01/2025 11:00 AM CDT Virtual Visit [facility] [place] [address] [facility] [address] [place] [phone] Christina Paz, RD, LD [address] [place] [address] 09/20/2025 10:00 AM HEALTH AND SAFETY TECHNICIAN Office Visit [facility] [place] [address] [facility], [address] [place] [phone] Deshawn Veloz MD [address] [place] [address] documented as of this encounter Visit Diagnoses Not on filedocumented in this encounter Additional Health Concerns Infection Onset Date Last Indicated Resolved Time Rule Out COVID-19 01/31/2025 01/31/2025 01/31/2025 1:07 PM CDT COVID-19 01/31/2025 01/31/2025 02/11/2025 11:3 9 PM CDT Assessment Noted Time PHQ-9 Depression Total Score: 3 07/16/20 22 10:34 AM CDT documented as of this encounter Care Teams Admissions Rn Relationship Specialty Start Date End Date Cosme Wayne MD [address] [place] [address] 197520 PCP - General Internal Medicine 08/27/22 Cosme Wayne MD [address] [place] [address] Assigned PCP 08/13/21 Neri Yusuf DPM [address] [employer] [address] [place] [address] Assigned Musculoskeletal Provider 09/15/22 11/23/22 Deshawn Veloz MD [address] [place] 348255 Neurology 09/24/22 Deshawn Veloz MD [address] [place] [address] Assigned Neuroscience Provider 10/13/22 Neri Yusuf DPM [address] [employer] [address] [place] [address] Assigned Surgical Provider 11/24/22 03/11/24 [place] [address] [employer] [address] [place] [address] Nephrology 04/22/23 Mary Trent PA-C [address] [place] [id number] Assigned Surgical Provider 07/13/24 09/11/24 Karine Rangel RPH 9 [place] [address] Pharmacist Pharmacist Hospital Aide 09/07/24 Karine Rangel [facility] [address] [place], [place] 161845 Assigned MTM Pharmacist 09/12/24 Mariana Queen MD [address] [place] [phone] Assigned Surgical Provider 09/12/24 01/09/25 Devon Hernandez MD [address] [place], [place] 7[address] Hematology & Oncology 12/23/24 Mary Trent PA-C [address] [place] [address] Physician Interlibrary Loan Specialist Bariatric 12/23/24 Cal Zelaya PA-C [address] [place] [address] 776075 Physician Interlibrary Loan Specialist Gastroenterology 12/28/24 Mary Trent PA-C [address] [place], [place] 137[address] Assigned Surgical Provider 01/10/25 Cal Zelaya PA-C 9 [place], [place] 9[address]85 Assigned Gastroenterology Provider 03/12/25 Devon Hernandez MD [address] [place] [address] Assigned Cancer Care Provider 05/12/25 documented as of this encounter
--- OUTSIDE RECORDS SUMMARY | 2025-05-22 16:07 | XMS_ITS | Encounter Summary ---
Author Organization [place] Address [address] [facility] [place] [address] Care Team Providers Care Spring Floor Service Worker Name Role Phone oCsme Wayne MD Unavailable [phone] Cosme Wayne MD Primary Care Provider + Deshawn Veloz MD Unavailable Deshawn Veloz MD Unavailable Mindy Harrison MD Unavailable Karine Rangel [facility] Unavailable [phone] Karine Rangel [place] Unavailable [phone] Devon Hernandez MD Unavailable [phone] Mary Trent PA-C Unavailable [phone] Cal Zelaya PA-C Unavailable [phone] Mary Trent PA-C Unavailable [phone] Cal Zelaya PA-C Unavailable [phone] Encounter Details Date Type Department Care Team (Latest Contact Info) Description 04/09/2025 Travel Social History Tobacco Use Types Packs/Day Years [...] relatives? Three times a week 12/04/2023 Attends [employer] Services Not on file 12/04 Active Member of Clubs or Organizations Not on f ile 12/04/2023 Attends Club or Organization Meetings Not on abad e 12/04/2023 Marital Status Not on file 12/04/2023 PHQ-2 Answer Date Recorded PHQ-2 Score 2 02/11/2025 [facility]ational Stress Questionnaire Answer Date [...] in an abandoned building, in an overnight prison, or couch-surfing.) Yes 11/29/2024 Are you worried [...] PM CDT Legal Sex Male 3:12 AM SCALE CLERK Gender Identity Male 07/22/2021 2:30 PM CDT Sexual Orientation Straight 07/22/2021 2: 30 PM CDT documented as of this encounter Plan of Treatment Upcoming Encounters Date Type Department Care Team (Late st Contact Info) Description 05/28/2025 1:40 PM CDT Therapy Visit [address] [place] [phone] Mary Trent, PAAllisonC [address] [place] [address] [place] [address] [place] [address] 06/04/2025 1:40 PM CDT Therapy Visit [address] [employer] [address] [place] [phone] Mary Trent PA-C [address] [place] [address] 874505 [place] [address] [place] [address] 07/01/2025 10:30 AM CDT Virtual Visit [facility] [place] [address] [facility] [address] [place] [phone] Mary Trent PA-C [address] [place], [place] 20[address] 07/01/2025 11:00 AM CDT Virtual Visit [facility] [place] [address] [facility] [address] [place] [phone] Christina Paz, RD, LD [address] [place], [place] [address] 09/20/2025 10:00 AM SCALE CLERK Office Visit [facility] [place] [address] [facility], [address] [place] [phone] Deshawn Veloz MD [address] [place], [place] 5739[address] documented as of this encounter Visit Diagnoses Not on filedocumented in this encounter Additional Health Concerns Assessment Noted Time PHQ-9 Depression Total Score: 8 02/12/20 25 8:47 AM CDT documented as of this encounter Care Teams Spring Floor Service Worker Relationship Specialty Start Date End Date Cosme Wayne MD [address] [place] [address] PCP - General Internal Medicine 08/27/22 Cosme Wayne MD [address] [place] [address] Assigned PCP 08/13/21 Deshawn Veloz MD [address] [place], [place] 0[address] Neurology 09/24/22 Deshawn Veloz MD [address] [place] 775815 Assigned Neuroscience Provider 10/13/22 Mindy Harrison MD [address] [place] 682565 Nephrology 04/22/23 Karine Rangel RPH [address] [place] [address] [phone] Pharmacist Pharmacist Audio Video Technician 09/07/24 Karine Rangel RPH [address] [place] [address] 590975 Assigned [place] Pharmacist 09/12/24 Devon Hernandez MD [address] [facility] [place] 903625 Hematology & Oncology 12/23/24 Mary Trent PA-C [address] [place] 8298[address] Physician Research Technician Bariatric 12/23/24 aCl Zelaya PA-C [address] [place] [address] 409705 Physician Research Technician Gastroenterology 12/28/24 Mary Trent PA-C [address] [place] 076725 Assigned Surgical Provider 01/10/25 Cal Zelaya PA-C 9 [place] [address] Assigned Gastroenterology Provider 03/12/25 documented as of this encounter
--- OUTSIDE RECORDS SUMMARY | 2025-05-22 16:07 | XMS_ITS | Encounter Summary ---
Author Organization [place] Address [facility] [address] Care Team Providers Care Psychiatric Nurse Practitioner Name Role Phone Cosme Wayne MD Unavailable [phone] Cosme Wayne MD Primary Care Provider + Deshawn Veloz MD Unavailable Deshawn Veloz MD Unavailable Mindy Harrison MD Unavailable Mary Trent PA-C Unavailable [phone] Karine Rangel [facility] Unavailable [phone] Karine Rangel [facility] Unavailable [phone] Mariana Queen MD Unavailable [phone] Devon Hernandez MD Unavailable [phone] Mary Trent PA-C Unavailable [phone] Cal Zelaya PA-C Unavailable [phone] Mary Trent PA-C Unavailable [phone] Cal Zelaya PA-C Unavailable [phone] Devon Hernandez MD Unavailable [phone] Encounter Details Date Type Department Care Team (Late st Contact Info) Description 09/07/2024 [facility] Specialty [address] [address] Karine Rangel, [facility] [address] [facility], [place] [address] Social History Tobacco Use Types Packs/Day Years [...] PHQ-2 Answer Date Recorded PHQ-2 Score 2 09/04/2024 [facility] [place] of Occupat ional Health - Occupational Stress [...] you got money to buy more? No 12/04/2023 Within the past 12 months, d id the food you bought just not last and you didn t have money to get more? No 12/04/2023 Housing Stability Answer Date Recorded Do you have housing? (Housin g is defined as stable permanent housing and does not include staying outside in a car, in a tent, in an abandoned building, in an overnight retirement, or couch-surfing.) Yes 12/04/2023 Are you worried about losing your housing? No 12/04/2023 Financial Resource Strain Answer Date R ecorded Within the past 12 months, h ave you or your family members you live with been unable to get utilities (heat, electricity) when it was really needed? No 12/04/2023 Transportation Needs Answer Date Record ed Within the past 12 months, h as lack of transportation kept you from medical appointments, getting your medicines, non-medical meetings or appointments, work, or from getting things that you need? No 12/04/2023 Interpersonal Safety Answer Date Record ed Do you feel physically and e motionally safe where you currently live? Yes 12/04/2023 Within the past 12 months, h ave you been hit, slapped, kicked or otherwise physically hurt by someone? No 12/04/2023 Within the past 12 months, h ave you been humiliated or emotionally abused in other ways by your partner or ex-partner? No 12/04/2023 Sex and Gender Information Value Date Recorded Sex Assigned at Male 07/22/2021 2:30 PM CDT Legal Sex Male 3:12 AM AIRPLANE PILOT COMMERCIAL Gender Identity Male 07/22/2021 2:30 PM CDT Sexual Orientation Straight 07/22/2021 2: 30 PM CDT documented as of this encounter Plan of Treatment Upcoming Encounters Date Type Department Care Team (Late st Contact Info) Description 05/28/2025 1:40 PM CDT Therapy Visit [address] [place] [phone] Mary Trent, PAAllisonC [address] [place], [place] [address] [place] [address] [place], [place] [address] 06/04/2025 1:40 PM CDT Therapy Visit [place] [id number] [facility] [address] [place] [phone] Mary Trent PA-C [address] [place] [address] [place] [address] [place] [id number] 07/01/2025 10:30 AM CDT Virtual Visit [facility] [place] [address] [facility] [address] [place] [phone] Mary Trent PA-C [address] [place] 085175 07/01/2025 11:00 AM CDT Virtual Visit [facility] [place] [address] [facility] [address] [place] [phone] Christina Paz, RD, LD [address] [place] 006615 09/20/2025 10:00 AM AIRPLANE PILOT COMMERCIAL Office Visit [facility] [place] [address] [facility], [address] [place] [phone] Deshawn Veloz MD [address] [place] 1776[address] documented as of this encounter Visit Diagnoses Not on filedocumented in this encounter Additional Health Concerns Infection Onset Date Last Indicated Resolved Time Rule Out COVID-19 01/31/2025 01/31/2025 01/31/2025 1:07 PM CDT COVID-19 01/31/2025 01/31/2025 02/11/2025 11:3 9 PM CDT Assessment Noted Time PHQ-9 Depression Total Score: 10 024 8:44 AM AIRPLANE PILOT COMMERCIAL documented as of this encounter Care Teams Psychiatric Nurse Practitioner Relationship Specialty Start Date End Date Cosme Wayne MD [address] [place] [address]219 PCP - General Internal Medicine 08/27/22 Cosme Wayne MD [address] [place] [address] 8[address]10 Assigned PCP 08/13/21 Deshawn Veloz MD [address] [place] [address] Neurology 09/24/22 Deshawn Veloz MD [address] [place] [address] Assigned Neuroscience Provider 10/13/22 Mindy Harrison MD [address] [place] [address] Nephrology 04/22/23 Mary Trent, PA-C [address] [place] [address] Assigned Surgical Provider 07/13/24 09/11/24 Karine Rangel RPH [address] [place] [address] [phone] Pharmacist Pharmacist Audit Director 09/07/24 Karine Rangel RPH [address] [place] [address] Assigned MTM Pharmacist 09/12/24 Mariana Queen MD [address] [place] [address] Assigned Surgical Provider 09/12/24 01/09/25 Devon Hernandez MD [address] [place] [address] Hematology & Oncology 12/23/24 Mary Trent PA-C [address] [place] [address] Physician Printed Circuit Board Designer Bariatric 12/23/24 Cal Zelaya PA-C [address] [place] [address] Physician Printed Circuit Board Designer Gastroenterology 12/28/24 Mary Trent PA-C [address] [place] [address] Assigned Surgical Provider 01/10/25 Cal Zelaya PA-C 9 [place] [address] Assigned Gastroenterology Provider 03/12/25 Devon Hernandez MD [address] [place] [address] Assigned Cancer Care Provider 05/12/25 documented as of this encounter
--- OUTSIDE RECORDS SUMMARY | 2025-05-22 16:07 | XMS_ITS | Encounter Summary ---
Author Organization [place] Address [address] [facility] [address] Care Team Providers Care Generator Repairer Name Role Phone Cosme Wayne MD Unavailable [phone] Cosme Wayne MD Primary Care Provider + Deshawn Veloz MD Unavailable Deshawn Veloz MD Unavailable Neri Yusuf DPM Unavailable [phone] Mindy Harrison MD Unavailable Mary Trent-C Unavailable [phone] Karine Rangel [facility] Unavailable [phone] Karine Rangel [facility] Unavailable [phone] Mariana Queen MD Unavailable [phone] Devon Hernandez MD Unavailable [phone] Mary Trent-C Unavailable [phone] Cal Zelaya PA-C Unavailable [phone] Mary Trent-Baldemar Unavailable [phone] Cal Zelaya-C Unavailable [phone] Devon Hernandez MD Unavailable [phone] Encounter Details Date Type Department Care Team (Late st Contact Info) Description 12/03/2022 [facility] [place] [address] [place] [address], [address] [place] [address] Jeni Hempihll Social History Tobacco Use Types Packs/Day Years [...] PM CDT Legal 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 No / Unsure 12/04/2022 8:04 AM AIRPORT TOWER CONTROLLER documented as of this encounter Plan of Treatment Upcoming Encounters Date Type Department Care Team (Late st Contact Info) Description 05/28/2025 1:40 PM CDT Therapy Visit [facility] [address] [place] [address] [phone] Mary Trent PA-C [address] [place] [address] [place] [address] [facility] [address] [place] [address] 06/04/2025 1:40 PM CDT Therapy Visit [facility] [address] [facility] [address] [place] [phone] Mary Trent PA-C [address] [place], [place] [address] [place] [address] [place] [address] 07/01/2025 10:30 AM CDT Virtual Visit [facility] [place] [address] [facility] [address] [place] [phone] Mary Trent, PA-C [address] [place] [address] 07/01/2025 11:00 AM CDT Virtual Visit [facility] [place] [address] [facility] [address] [place] [phone] Christina Paz, RD, LD [address] [place] 35[address]25 09/20/2025 10:00 AM AIRPORT TOWER CONTROLLER Office Visit [facility] [place] [address] [facility], [address] [place] [phone] Deshawn Veloz MD [address] [place] [address] documented as of this encounter Visit Diagnoses Not on filedocumented in this encounter Additional Health Concerns Infection Onset Date Last Indicated Resolved Time Rule Out COVID-19 01/31/2025 01/31/2025 01/31/2025 1:07 PM CDT COVID-19 01/31/2025 01/31/2025 02/11/2025 11:3 9 PM CDT Assessment Noted Time PHQ-9 Depression Total Score: 3 07/16/20 22 10:34 AM CDT documented as of this encounter Care Teams Generator Repairer Relationship Specialty Start Date End Date Cosme Wayne MD [address] [place] [address] 268960 PCP - General Internal Medicine 08/27/22 Cosme Wayne MD [address] [place] [address] Assigned PCP 08/13/21 Deshawn Veloz MD [address] [place] [address] Neurology 09/24/22 Deshawn Veloz MD [address] [place] [address] Assigned Neuroscience Provider 10/13/22 Neri Yusuf DPM [address] [employer] [facility] [address] [place] [address] Assigned Surgical Provider 11/24/22 03/11/24 [place] [address] [employer] [facility] [address] [place] [address] Nephrology 04/22/23 Mary Trent PAAllisonC [address] [place] [address] Assigned Surgical Provider 07/13/24 09/11/24 Karine Rangel RPH [address] [place] [address] [phone] Pharmacist Pharmacist Tube Splicer 09/07/24 Karine Ranegl RPH [address] [place] [address] Assigned [place] Pharmacist 09/12/24 Mariana Queen MD [address] [place] [address] Assigned Surgical Provider 09/12/24 01/09/25 Devon Hernandez MD [address] [place] [address] Hematology & Oncology 12/23/24 Mary Trent PA-C [address] [place] [address] Physician Cafeteria Clerk Bariatric 12/23/24 Cal Zelaya PA-C [address] [place] [address] Physician Cafeteria Clerk Gastroenterology 12/28/24 Mary Trent PA-C [address] [place] [address] Assigned Surgical Provider 01/10/25 Cal Zelaya PA-C [address] [place] [address] Assigned Gastroenterology Provider 03/12/25 Devon Hernandez MD [address] [place], [place] 211055 Assigned Cancer Care Provider 05/12/25 documented as of this encounter
--- OUTSIDE RECORDS SUMMARY | 2025-05-22 16:07 | XMS_ITS | Encounter Summary ---
Author Organization [place] Address [address] [facility] [place] [address] Care Team Providers Care Internet Sales Consultant Name Role Phone Cosme Wayne MD Unavailable [phone] Cosme Wayne MD Primary Care Provider + Deshawn Veloz MD Unavailable Deshawn Veloz MD Unavailable Mindy Harrison MD Unavailable Mary Trent PA-C Unavailable [phone] Karine Rangel [facility] Unavailable [phone] Karine Rangel [facility] Unavailable [phone] Mariana Queen MD Unavailable [phone] Devon Hernandez MD Unavailable [phone] Mary Trent PA-C Unavailable [phone] Cal Zelaya PA-C Unavailable [phone] Mary Trent PA-C Unavailable [phone] Cal Zelaya PA-C Unavailable [phone] Devon Hernandez MD Unavailable [phone] Encounter Details Date Type Department Care Team (Late st Contact Info) Description 08/18/2024 [facility] [address] [place] [phone] Mary Trent PA-C [address] [place] [address] Social History Tobacco Use Types Packs/Day Years [...] relatives? 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 Gender Identity Male 07/22/2021 2:30 PM CDT Sexual Orientation Straight 07/22/2021 2: 30 PM CDT documented as of this encounter Plan of Treatment Upcoming Encounters Date Type Department Care Team (Late st Contact Info) Description 05/28/2025 1:40 PM CDT Therapy Visit [address] [place] [phone] Mary Trent, PAAllisonC [address] [place] [address] [place] [address] [place], [place] [address] 06/04/2025 1:40 PM CDT Therapy Visit [address] [place] [phone] Mary Trent PA-C [address] [place] [id number] [place] [address] [place] [address] 07/01/2025 10:30 AM CDT Virtual Visit [facility] [place] [address] [facility] [address] [place] [phone] Mary Trent PA-C [address] [place] [id number] 07/01/2025 11:00 AM CDT Virtual Visit [facility] [place] [address] [facility] [address] [place] [phone] Christina Paz, RD, [place] [address] [place] [id number] 09/20/2025 10:00 AM TRIM TECHNICIAN Office Visit [facility] [place] [address] [facility], [address] [place] [phone] Deshawn Veloz MD [address] [place] [id number] documented as of this encounter Visit Diagnoses Not on filedocumented in this encounter Additional Health Concerns Infection Onset Date Last Indicated Resolved Time Rule Out COVID-19 01/31/2025 01/31/2025 01/31/2025 1:07 PM CDT COVID-19 01/31/2025 01/31/2025 02/11/2025 11:3 9 PM CDT Assessment Noted Time PHQ-9 Depression Total Score: 11 024 2:44 PM CDT documented as of this encounter Care Teams Internet Sales Consultant Relationship Specialty Start Date End Date Cosme Wayne MD [address] [place] [address] PCP - General Internal Medicine 08/27/22 Cosme Wayne MD [address] [place] [address] Assigned PCP 08/13/21 Deshawn Veloz MD [address] [place] [address] Neurology 09/24/22 Deshawn Veloz MD [address] [place] [address] Assigned Neuroscience Provider 10/13/22 Mindy Harrison MD [address] [place] [address] Nephrology 04/22/23 Mary Trent PA-C [address] [place] [address] Assigned Surgical Provider 07/13/24 09/11/24 Karine Rangel RPH 9 [place] [address] Pharmacist Pharmacist Gas Regulator Repairer 09/07/24 Karine Rangel RPH 9 [place] [address] Assigned [facility] Pharmacist 09/12/24 Mariana Queen MD [address] [place] [address] Assigned Surgical Provider 09/12/24 01/09/25 Devon Hernandez MD [address] [place], [place] [address] Hematology & Oncology 12/23/24 Mary Trent PA-C [address] [place] [address] Physician Cable Tower Operator Bariatric 12/23/24 Cal Zelaya PA-C 909 [place] [address] Physician Cable Tower Operator Gastroenterology 12/28/24 Mary Trent PA-C [address] [place] [address] Assigned Surgical Provider 01/10/25 Cal Zelaya PA-C 909 [place] [address] Assigned Gastroenterology Provider 03/12/25 Devon Hernandez MD [address] [place], [place] 5847[address] Assigned Cancer Care Provider 05/12/25 documented as of this encounter
--- OUTSIDE RECORDS SUMMARY | 2025-05-22 16:07 | XMS_ITS | Encounter Summary ---
Author Organization [place] Address [address] [facility] [place] [address] Care Team Providers Care Acid Purifier Name Role Phone Cosme Wayne MD Unavailable [phone] Cosme Wayne MD Primary Care Provider + Deshawn Veloz MD Unavailable Deshawn Veloz MD Unavailable Mindy Harrison MD Unavailable [facility] Unavailable [phone] [facility] Unavailable [phone] Mariana Queen MD Unavailable [phone] Devon Hernandez MD Unavailable [phone] Mary Trent-C Unavailable [phone] Cal Zelaya-C Unavailable Mary Trent-C Unavailable [phone] Cal Zelaya-Baldemar Unavailable [phone] Devon Hernandez MD Unavailable [phone] Encounter Details Date Type Department Care [...] relatives? 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 Gender Identity Male 07/22/2021 2:30 PM CDT Sexual Orientation Straight 07/22/2021 2: 30 PM CDT documented as of this encounter Plan of Treatment Upcoming Encounters Date Type Department Care Team (Late st Contact Info) Description 05/28/2025 1:40 PM CDT Therapy Visit [facility] [address] [facility] [address] [place] [phone] Mary Trent PA-C [address] [place] [address] 942205 [place] [address] [place] [address] 06/04/2025 1:40 PM CDT Therapy Visit [facility] [address] [facility] [address] [place] [phone] Mary Trent PA-C [address] [place] [address] [place] [address] [place] [address] 07/01/2025 10:30 AM CDT Virtual Visit [facility] [place] [address] [facility] [address] [place] [phone] Mary Trent PAAllisonC [address] [place] [id number] 07/01/2025 11:00 AM CDT Virtual Visit [facility] [place] [address] [facility] [address] [place] [address] Christina Paz, RD, [place] [address] [place] [id number] 09/20/2025 10:00 AM OUTDOOR FITNESS TRAINER Office Visit [facility] [place] [address] [facility], [address] [place] [phone] Deshawn Veloz MD [address] [facility] [place] 212385 documented as of this encounter Visit Diagnoses Not on filedocumented in this encounter Additional Health Concerns Infection Onset Date Last Indicated Resolved Time Rule Out COVID-19 01/31/2025 01/31/2025 01/31/2025 1:07 PM CDT COVID-19 01/31/2025 01/31/2025 02/11/2025 11:3 9 PM CDT Assessment Noted Time PHQ-9 Depression Total Score: 14 025 10:39 AM OUTDOOR FITNESS TRAINER documented as of this encounter Care Teams Acid Purifier Relationship Specialty Start Date End Date Cosme Wayne MD [address] [place] [address] PCP - General Internal Medicine 08/27/22 Cosme Wayne MD [address] [place] [address] Assigned PCP 08/13/21 Deshawn Veloz MD [address] [place] 257865 Neurology 09/24/22 Deshawn Veloz MD [address] [place] 533625 Assigned Neuroscience Provider 10/13/22 Mindy Harrison MD [address] [place] 7578[address] Nephrology 04/22/23 [facility] 909 [place] [address] Pharmacist Pharmacist Child And Youth Program Assistant 09/07/24 [facility] 9 [place] [address] Assigned MTM Pharmacist 09/12/24 Mariana Queen MD [address] [place] [address] Assigned Surgical Provider 09/12/24 01/09/25 Devon Hernandez MD [address] [place] [address] Hematology & Oncology 12/23/24 Mary Trent PA-C [address] [place] [address] Physician Maintenance Mechanic Supervisor Bariatric 12/23/24 Cal Zelaya PA-C 909 [place], [place] 6069[address] Physician Maintenance Mechanic Supervisor Gastroenterology 12/28/24 Mary Trent PA-C [address] [place] [address] Assigned Surgical Provider 01/10/25 Cal Zelaya PA-C 909 [place], [place] 819405 Assigned Gastroenterology Provider 03/12/25 Devon Hernandez MD [address] [place] 681285 Assigned Cancer Care Provider 05/12/25 documented as of this encounter
--- OUTSIDE RECORDS SUMMARY | 2025-05-22 16:07 | XMS_ITS | Encounter Summary ---
Author Organization [place] Address [address] [place] [address] Care Team Providers Care Sql Application Developer Name Role Phone Cosme Wayne MD Unavailable [phone] Cosme Wayne MD Primary Care Provider + Neri Yusuf DPM Unavailable [phone] Deshawn Veloz MD Unavailable Deshawn Veloz MD Unavailable ParamjitNeri kuo DPM Unavailable [phone] Mindy Harrison MD Unavailable Mary Trent-C Unavailable [phone] Karine Rangel [facility] Unavailable Karine Rangel [facility] Unavailable [phone] Mariana Queen MD Unavailable [phone] Devon Hernandez MD Unavailable [phone] Mary Trent-C Unavailable [phone] Cal Zelaya-C Unavailable [phone] Mary Trent-C Unavailable [phone] Cal Zelaya-C Unavailable [phone] Devon Hernandez MD Unavailable [phone] Reason for Visit * Reason Comments Medication Refill Encounter Details Date Type Department Care Team (Late st Contact Info) Description 10/31/2022 Refill [facility] [address] [phone] Cosme Wayne MD [address] [address] Medication Refill Social History Tobacco Use Types [...] PM CDT Legal 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 No / Unsure 10/16/2022 8:09 AM LABORATORY MECHANICAL TECHNICIAN documented as of this encounter Plan of Treatment Upcoming Encounters Date Type Department Care Team (Late st Contact Info) Description 05/28/2025 1:40 PM CDT Therapy Visit [facility] [address] [place] [address] [place] [address] [phone] Mary Trent, PA-C [address] [facility] [address] [place], [place] [address] [place] [address] [facility] [address] [place], [place] [address] 06/04/2025 1:40 PM CDT Therapy Visit [facility] [address] [facility] [address] [place] [phone] Mary Trent PA-C [address] [place] [address]79[address] [place] [address] [place] [address] 07/01/2025 10:30 AM CDT Virtual Visit [facility] [place] [address] [facility] [address] [place] [phone] Mary Trent PA-C [address] [place] [id number] 07/01/2025 11:00 AM CDT Virtual Visit [facility] [place] [address] [facility] [address] [place] [phone] Christina Paz, RD, [place] [address] [place] [id number] 09/20/2025 10:00 AM LABORATORY MECHANICAL TECHNICIAN Office Visit [facility] [place] [address] [facility], [address] [place] [phone] Deshawn Veloz MD [address] [place] [address] documented as of this encounter Visit Diagnoses Diagnosis Low vitamin D level documented in this encounter Additional Health Concerns Infection Onset Date Last Indicated Resolved Time Rule Out COVID-19 01/31/2025 01/31/2025 01/31/2025 1:07 PM CDT COVID-19 01/31/2025 01/31/2025 02/11/2025 11:3 9 PM CDT Assessment Noted Time PHQ-9 Depression Total Score: 3 09/26/20 22 10:34 AM CDT documented as of this encounter Care Teams Sql Application Developer Relationship Specialty Start Date End Date Cosme Wayne MD [address] [place] [address] PCP - General Internal Medicine 08/27/22 Cosme Wayne MD [address] [place] [address] Assigned PCP 08/13/21 Neri Yusuf DPM [address] [employer] [address] [place] [address] Assigned Musculoskeletal Provider 09/15/22 11/23/22 Deshawn Veloz MD [address] [place] [address] Neurology 09/24/22 Deshawn Veloz MD [address] [place] [address] Assigned Neuroscience Provider 10/13/22 Neri Yusuf DPM [address] [employer] [address] [place] [address] Assigned Surgical Provider 11/24/22 03/11/24 [place] [address] [employer] [address] [place] [address] Nephrology 04/22/23 Mary Trent, PAAllisonC [address] [place] [address] Assigned Surgical Provider 07/13/24 09/11/24 Karine Rangel [facility] 909 [place] [address] Pharmacist Pharmacist Car Pincher 09/07/24 Karine Rangel [facility] 9 [place], [place] 292505 Assigned MTM Pharmacist 09/12/24 Mariana Queen MD [address] [place] [address] Assigned Surgical Provider 09/12/24 01/09/25 Devon Hernandez MD [address] [place] [address] Hematology & Oncology 12/23/24 Mary Trent PA-C [address] [place] [address] Physician Jute Bag Sewer Bariatric 12/23/24 Cal Zelaya PA-C 909 [place] [address] Physician Jute Bag Sewer Gastroenterology 12/28/24 Mary Trent PA-C [address] [place] [address] Assigned Surgical Provider 01/10/25 Cal Zelaya PA-C 909 [place] [address] Assigned Gastroenterology Provider 03/12/25 Devon Hernandez MD [address] [address] Assigned Cancer Care Provider 05/12/25 documented as of this encounter
--- OUTSIDE RECORDS SUMMARY | 2025-05-22 16:07 | XMS_ITS | Encounter Summary ---
Author Organization [place] Address [address] [place] [address] Care Team Providers Care Asphalt Distributor Operator Name Role Phone Cosme Wayne MD Unavailable [phone] Cosme Wayne MD Primary Care Provider + Deshawn Veloz MD Unavailable eDshawn Veloz MD Unavailable Neri Yusuf DPM Unavailable [phone] Mindy Harrison MD Unavailable Mary Trent-C Unavailable [phone] Karine Rangel [facility] Unavailable Karine Rangel [facility] Unavailable [phone] Mariana Queen MD Unavailable [phone] Devon Hernandez MD Unavailable [phone] Mary Trent-C Unavailable [phone] Cal Zelaya PA-C Unavailable [phone] Mary Trent-Baldemar Unavailable [phone] Cal Zelaya-C Unavailable [phone] Devon Hernandez MD Unavailable [phone] Encounter Details Date Type Department Care Team (Late st Contact Info) Description 02/27/2023 [facility] [place] [address] [place] [address], [address] [place] [phone] Jeni Hemphill Social History Tobacco Use Types Packs/Day Years [...] PM CDT Legal 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 No / Unsure 02/28/2023 10:51 AM CDT documented as of this encounter Plan of Treatment Upcoming Encounters Date Type Department Care Team (Late st Contact Info) Description 05/28/2025 1:40 PM CDT Therapy Visit [facility] [address] [facility] [address] [place] [phone] Mary Trent PA-C [address] [place] [address] [place] [address] [place] [address] 06/04/2025 1:40 PM CDT Therapy Visit [facility] [address] [facility] [address] [place] [phone] Mary Trent PA-C [address] [place] [address] [place] [address] [place], [place] [address] 07/01/2025 10:30 AM CDT Virtual Visit [facility] [place] [address] [facility] [address] [place] [phone] Mary Trent, PA-C [address] [place], [place] [address] 07/01/2025 11:00 AM CDT Virtual Visit [facility] [place] [address] [facility] [address] [place] [phone] Christina Paz, RD, [place] [address] [place] [address] 09/20/2025 10:00 AM MOLD PULLER Office Visit [facility] [place] [address] [facility], [address] [place] [phone] Deshawn Veloz MD [address] [place] [address]175 documented as of this encounter Visit Diagnoses Not on filedocumented in this encounter Additional Health Concerns Infection Onset Date Last Indicated Resolved Time Rule Out COVID-19 01/31/2025 01/31/2025 01/31/2025 1:07 PM CDT COVID-19 01/31/2025 01/31/2025 02/11/2025 11:3 9 PM CDT Assessment Noted Time PHQ-9 Depression Total Score: 3 01/30/20 23 9:35 AM CDT documented as of this encounter Care Teams Asphalt Distributor Operator Relationship Specialty Start Date End Date Cosme Wayne MD [address] [place] [address] 384450 PCP - General Internal Medicine 08/27/22 Cosme Wayne MD [address] [place] [address] Assigned PCP 08/13/21 Deshawn Veloz MD [address] [place] [address] Neurology 09/24/22 Deshawn Veloz MD [address] [place] [address] Assigned Neuroscience Provider 10/13/22 Neri Yusuf DPM [address] [employer] [address] [place] [address] Assigned Surgical Provider 11/24/22 03/11/24 Mindy Harrison MD [facility] [employer] [facility] [address] [place] [address] Nephrology 04/22/23 Mary Trent PA-C [address] [place] [address] Assigned Surgical Provider 07/13/24 09/11/24 Karine Rangel RPH [address] [place] [address] Pharmacist Pharmacist Sql Etl Developer 09/07/24 Karine Rangel RPH [address] [place] [address] Assigned [place] Pharmacist 09/12/24 Mariana Queen MD [address] [place] [address] Assigned Surgical Provider 09/12/24 01/09/25 Devon Hernandez MD [address] [place] [address] Hematology & Oncology 12/23/24 Mary Trent PA-C [address] [place] [address] Physician Coil Rewind Machine Operator Bariatric 12/23/24 Cal Zelaya PA-C 909 [place] [address] Physician Coil Rewind Machine Operator Gastroenterology 12/28/24 Mary Trent PA-C [address] [place] [address] Assigned Surgical Provider 01/10/25 Cal Zelaya PA-C 909 [place] [address] Assigned Gastroenterology Provider 03/12/25 Devon Hernandez MD [address] [place] [address]45 Assigned Cancer Care Provider 05/12/25 documented as of this encounter
--- OUTSIDE RECORDS SUMMARY | 2025-05-22 16:07 | XMS_ITS | Encounter Summary ---
Author Organization [place] [facility] [place] [address] Care Team Providers Care Wood Experimental Mechanic Name Role Phone Cosme Wayne MD Unavailable [phone] Cosme Wayne MD Primary Care Provider + Deshawn Veloz MD Unavailable Deshawn Veloz MD Unavailable Mindy Harrison MD Unavailable Karine Rangel [facility] Unavailable [phone] Karine Rangel [facility] Unavailable [phone] Mariana Queen MD Unavailable [phone] Devon Hernandez MD Unavailable [phone] Mary Trent-C Unavailable [phone] Cal Zelaya-C Unavailable [phone] Mary Trent-C Unavailable [phone] Cal Zelaya-Baldemar Unavailable [phone] Devon Hernandez MD Unavailable [phone] Encounter Details Date Type Department Care Team (Late st Contact Info) Description 12/18/2024 [facility] [address] [address] Cosme Wayne MD [address] [place] [address] Social History Tobacco Use Types Packs/Day Years [...] relatives? Three times a week 12/04/2023 Attends Rastafari Services Not on file 12/04 Active Member of Clubs or Organizations Not on f ile 12/04/2023 Attends Club or Organization Meetings Not on abad e 12/04/2023 Marital Status Not on file 12/04/2023 PHQ-2 Answer Date Recorded PHQ-2 Score 3 12/17/2024 [facility] - Occupational Stress [...] in an abandoned building, in an overnight usp, or couch-surfing.) Yes 11/29/2024 Are you worried [...] PM CDT Legal Sex Male 3:12 AM FRONT ELEVATOR OPERATOR Gender Identity Male 07/22/2021 2:30 PM CDT Sexual Orientation Straight 07/22/2021 2: 30 PM CDT documented as of this encounter Miscellaneous Notes * Telephone Encounter - Radha Topete CMA - 12/21/2024 10:13 AM CST alexandra Rossi advise on timing for follow up visit for pt and team can inform via Calvin Topete CMA T ELEVATOR OPERATOR * Telephone Encounter - Jessica Hurley - 12/18/2024 8:32 AM CST Please advise. Thank you. T ELEVATOR OPERATOR documented in this encounter Plan of Treatment Upcoming Encounters Date Type Department Care Team (Late st Contact Info) Description 05/28/2025 1:40 PM CDT Therapy Visit [facility] [address] [place] [address] [phone] Mary Trent PA-C [address] [place] [address] [place] [address] [place] [id number] 06/04/2025 1:40 PM CDT Therapy Visit [facility] [address] [place] [phone] Mary Trent PA-C [address] [place] [address] [place] [address] [place] [address] 07/01/2025 10:30 AM CDT Virtual Visit [facility] [place] [address] [facility] [address] [place] [phone] Mary Trent PA-C [address] [place] [id number] 07/01/2025 11:00 AM CDT Virtual Visit [facility] [place] [address] [facility] [address] [place] [phone] Christina Paz, RD, [place] [address] [facility] [address] [place] [id number] 09/20/2025 10:00 AM FRONT ELEVATOR OPERATOR Office Visit [facility] [place] [address] [facility], [address] [place] [phone] Deshawn Veloz MD [address] [place] [id number] documented as of this encounter Visit Diagnoses Not on filedocumented in this encounter Additional Health Concerns Infection Onset Date Last Indicated Resolved Time Rule Out COVID-19 01/31/2025 01/31/2025 01/31/2025 1:07 PM CDT COVID-19 01/31/2025 01/31/2025 02/11/2025 11:3 9 PM CDT Assessment Noted Time PHQ-9 Depression Total Score: 14 025 10:39 AM FRONT ELEVATOR OPERATOR documented as of this encounter Care Teams Wood Experimental Mechanic Relationship Specialty Start Date End Date Cosme Wayne MD [address] [place] [address] PCP - General Internal Medicine 08/27/22 Cosme Wayne MD [address] [place] [address] Assigned PCP 08/13/21 Deshawn Veloz MD [address] [place] [address] Neurology 09/24/22 Deshawn Veloz MD [address] [place] [address] Assigned Neuroscience Provider 10/13/22 Mindy Harrison MD [address] [place] [address] Nephrology 04/22/23 Karine Rangel, [facility] [address] [place] [address] Pharmacist Pharmacist Contact Center Team Lead 09/07/24 Karine Rangel [facility] [address] [place] [address] Assigned MTM Pharmacist 09/12/24 Mariana Queen MD [address] [place] [address] Assigned Surgical Provider 09/12/24 01/09/25 Devon Hernandez MD [address] [place] [address] Hematology & Oncology 12/23/24 Mary Trent PA-C [address] [place] [address] Physician Windows Systems Engineer Bariatric 12/23/24 Cal Zelaya PA-C [address] [place] [address] Physician Windows Systems Engineer Gastroenterology 12/28/24 Mary Trent PA-C [address] [place], [place] [address] Assigned Surgical Provider 01/10/25 Cal Zelaya PA-C [address] [place], [place] [address] Assigned Gastroenterology Provider 03/12/25 Devon Hernandez MD [address] [place] [address] Assigned Cancer Care Provider 05/12/25 documented as of this encounter
--- OUTSIDE RECORDS SUMMARY | 2025-05-22 16:07 | XMS_ITS | Encounter Summary ---
Author Organization [place] Address [address] [facility] [place] [address] Care Team Providers Care Vocational Rehabilitation Teacher Name Role Phone Cosme Wayne MD Unavailable [phone] Cosme Wayne MD Primary Care Provider + Deshawn Veloz MD Unavailable Deshawn Veloz MD Unavailable Mindy Harrison MD Unavailable Karine Rangel [facility] Unavailable [phone] Karine Rangel [place] Unavailable [phone] Devon Hernandez MD Unavailable [phone] Mary Trent-C Unavailable [phone] Cal Zelaya-Baldemar Unavailable [phone] Mary Trent-Baldemar Unavailable [phone] Cal Zelaya-Baldemar Unavailable [phone] Reason for Visit * Reason Onset Date Comments *-*INCOMING RECORDS*-* 04/14/2025 Wernicke encephalopathy [E51.2]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 Three times a week 12/04/2023 Attends Je[employer] Services Not on file 12/04 Active Member of Clubs or Organizations Not on f ile 12/04/2023 Attends Club or Organization Meetings Not on abad e 12/04/2023 Marital Status Not on file 12/04/2023 PHQ-2 Answer Date Recorded PHQ-2 Score 3 12/17/2024 [facility] - Occupational [...] Date Recorded Do you have housing? (Elías daily is defined as stable permanent housing and [...] PM CDT Legal Sex Male 3:12 AM SAS CLINICAL PROGRAMMER Gender Identity Male 07/22/2021 2:30 PM CDT Sexual Orientation Straight 07/22/2021 2: 30 PM CDT documented as of this encounter Miscellaneous Notes * Telephone Encounter - Rodrick Campos - 01/25/2025 11:01 AM CDT RECORDS STATUS - ALL OTHER DIAGNOSIS RECORDS RECEIVED FROM: [facility] - Internal records DATE RECEIVED: 01/25 documented in this encounter Plan of Treatment Upcoming Encounters Date Type Department Care Team (Late st Contact Info) Description 05/28/2025 1:40 PM CDT Therapy Visit [facility] [address] [phone] Mary Trent PA-C [address] [place] [id number] [place] [address] [place] [address] 06/04/2025 1:40 PM CDT Therapy Visit [facility] [place] [address] [facility] [address] [place] [phone] Mary Trent PA-C [address] [place] [id number] [place] [address] [place] [address] 07/01/2025 10:30 AM CDT Virtual Visit [facility] [place] [address] [facility] [address] [place] [phone] Mary Trent PA-C [address] [place] [id number] 07/01/2025 11:00 AM CDT Virtual Visit [facility] [place] [address] [facility] [address] [place] [phone] Christina Paz, RD, [place] [address] [place] [address] 09/20/2025 10:00 AM SAS CLINICAL PROGRAMMER Office Visit [facility] [place] [address] [place] [address], [address] [place] [phone] Deshawn Veloz MD [address] [place] [address] documented as of this encounter Visit Diagnoses Not on filedocumented in this encounter Additional Health Concerns Assessment Noted Time PHQ-9 Depression Total Score: 8 02/12/20 25 8:47 AM CDT documented as of this encounter Care Teams Vocational Rehabilitation Teacher Relationship Specialty Start Date End Date Cosme Wayne MD [address] [place] [address] PCP - General Internal Medicine 08/27/22 Cosme Wayne MD [address] [place] [address] Assigned PCP 08/13/21 Deshawn Veloz MD [address] [place] [address] Neurology 09/24/22 Deshawn Veloz MD [address] [place] [address] Assigned Neuroscience Provider 10/13/22 Mindy Harrison MD [address] [place] [address] Nephrology 04/22/23 Karine Rangel RPH [address] [place] [address] Pharmacist Pharmacist Stencil Cutter Machine 09/07/24 Karine Rangel RPH [address] [place] [address] Assigned MTM Pharmacist 09/12/24 Devon Hernandez MD [address] [place] [address] Hematology & Oncology 12/23/24 Mary Trent PA-C [address] [place] [address] Physician Operations Examiner Bariatric 12/23/24 Cal Zelaya PA-C [address] [place], [place] [address] Physician Operations Examiner Gastroenterology 12/28/24 Mary Trent PA-C [address] [place] [address] Assigned Surgical Provider 01/10/25 Cal Zelaya PA-C [address] [place], [place] [address] Assigned Gastroenterology Provider 03/12/25 documented as of this encounter
--- OUTSIDE RECORDS SUMMARY | 2025-05-22 16:07 | XMS_ITS | Clinical Summary ---
Author Organization Mobile Address [address] [facility] [place] [address] Care Team Providers Care Porcelain Mixer Name Role Phone Cosme Wayne MD Unavailable [phone] Cosme Wayne MD Primary Care Provider + Deshawn Veloz MD Unavailable Deshawn Veloz MD Unavailable Mindy Harrison MD Unavailable Karine Rangel [facility] Unavailable [phone] Karine Rangel [facility] Unavailable [phone] Devon Hernandez MD Unavailable [phone] Mary Trent-C Unavailable [phone] Cal Zelaya-C Unavailable Mary Trent-C Unavailable [phone] Cal Zelaya-C Unavailable Devon Hernandez MD Unavailable [phone] Allergies Active Allergy Reactions Criticality Noted Date Comments Amlodipine Swelling High 07/26/2022 Patient states this is a severe allergy Lisinopril Anaphylaxis High 07/30/2021 unable to breath-gasping for breath-Numbness in face- Medications rOPINIRole (REQUIP) 3 MG tablet Take 3 mg by mouth At Bedtime 1 Active busPIRone HCl (BUSPAR) 30 MG tablet Take 30 mg by mouth 2 times daily 3 Active Multiple Vitamins-Minerals (BARIATRIC MULTIVITAMINS PO) Take 1 tablet by mouth daily. Procare brand Active tadalafil (CIALIS) 10 MG tablet Take 10 mg by mouth daily as needed. Active cyanocobalamin (VITAMIN B-12) 1000 MCG tablet Take 1,000 mcg by mouth daily. Active folic acid (FOLVITE) 1 MG tabletIndications :Folate deficiency TAKE 2 TABLETS(2 MG) BY MOUTH DAILY 180 tablet 2 4 Active aspirin 81 MG EC tabletIndications :Generalized weakness Take 1 tablet (81 mg) by mouth daily. 90 tablet 4 5 Active atorvastatin (LIPITOR) 40 MG tabletIndications :Generalized weakness Take 1 tablet (40 mg) by mouth every evening. 90 tablet 4 5 Active escitalopram (LEXAPRO) 10 MG tabletIndications :Generalized weakness Take 1 tablet (10 mg) by mouth daily. 90 tablet 4 5 Active tamsulosin (FLOMAX) 0.4 MG capsuleIndication s:Generalized weakness Take 1 capsule (0.4 mg) by mouth daily. 90 capsule 4 5 Active thiamine (B-1) 100 MG tabletIndications :Generalized weakness Take 1 tablet (100 mg) by mouth daily. 90 tablet 4 5 Active docusate sodium (COLACE) 100 MG tabletIndications :Other constipation Take 1 tablet (100 mg) by mouth daily as needed for constipation. 100 tablet 1 5 Active Additional Information Patient taking differently:100 mg Oral2 TIMES DAILY, Reported on 04/30/2025 OYSCO 500 + D 500-5 MG-MCG TABS Take 1 tablet by mouth 2 times daily. 5 Active ALPRAZolam (XANAX) 0.5 MG tablet Take 0.5 mg by mouth daily as needed for anxiety (flying). 5 Active zolpidem (AMBIEN) 10 MG tablet take 1 tablet by mouth at bedtime as needed for insomnia 5 Active QUEtiapine (SEROQUEL) 100 MG tablet Take 100 mg by mouth at bedtime. 5 Active Calcium Citrate-Vitamin D 500-10 MG-MCG CHEWIndications:B ariatric surgery status Take 1 tablet by mouth 2 times daily. 180 tablet 3 5 Active hydrOXYzine HCl (ATARAX) 50 MG tablet Take 50-100 mg by mouth 3 times daily as needed for anxiety. 5 Active magnesium glycinate 100 MG CAPS capsuleIndication s:Postsurgical malabsorption,Low magnesium level Take 2 capsules (200 mg) by mouth 2 times daily. 60 capsule 3 5 Active Pregabalin (LYRICA) 200 MG capsuleIndication s:Peripheral polyneuropathy,Re stless leg syndrome Take 1 capsule (200 mg) by mouth 3 times daily. 270 capsule 1 5 Active carvedilol (COREG) 6.25 MG tabletIndications :Essential hypertension TAKE 1 TABLET(6.25 MG) BY MOUTH TWICE DAILY WITH MEALS 180 tablet 5 Active omeprazole (PRILOSEC) [address] capsuleIndication s:Hx of obesity,Overweigh t (BMI 25.0-29.9) TAKE 1 CAPSULE(20 MG) BY MOUTH DAILY 90 capsule 1 5 Active metFORMIN (GLUCOPHAGE XR) 500 MG 24 hr tabletIndications :Hx of obesity TAKE 2 TABLETS(1000 MG) BY MOUTH DAILY WITH FOOD 180 tablet 5 Active naltrexone (DEPADE/REVIA) 50 MG tabletIndications :Class 1 obesity without serious comorbidity with body mass index (BMI) of 30.0 to 30.9 in adult, unspecified obesity type Take 1/4-1/2 tablet in am for 7 days, then increase to 1/2 tablet twice daily. 30 tablet 2 5 Active Active Problems Problem Noted Date Diagnosed Date Hx of obesity 01/06/2025 Assessment & Plan (01/06/2025 10:22 AM CDT): Discussed transitioning to weight maintenance at this time. Would not restart a GLP if concerns for gallstone/sludge (recommended in visit f/up with PCP/surgery for further recs/if additional concerns). 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 Wernicke encephalopathy 11/30/2024 Transaminitis 11/28/2024 Generalized weakness 11/28/2024 Class 1 obesity without seri ous comorbidity with body mass index (BMI) of 30.0 to 30.9 in adult, unspecified obesity type 07/09/2024 Assessment & Plan (04/30/2025 10:38 AM CDT): Maintaining weight. Recommend really continue to work on eating patterns - three meals daily and adding in veggies. Recommend seeing RD for this. Continue 1000 mg metformin daily. Plan to start off label naltrexone with liver monitoring. Get moving referral placed. We reviewed recommendations for muscle conservation including eating three meals daily, good protein intake, and strength training. Assessment & Plan (07/09/2024 11:00 AM CDT): Re-establish for bariatric surgery history. Interested in GLP/GIP - plan to try for Zepbound. Discussed mechanism of action, common side effects, titration guidelines, and discussed risks for pancreatitis/gallbladder problems/gastroparesis/low sugars/MTC/MEN2. Medication handout given in AVS Postsurgical malabsorption 07/09/2024 Assessment & Plan (07/09/2024 10:59 AM CDT): 10/08/[address] Haddad 04/17/2007 removal of band and conversion to Bryce-en-Y bypass, Dr. Haddad Restart recommended post-op vitamins. Labs ordered per protocol. Broad panel ordered d/t only on one multivitamin and complaints of paresthesia/fatigue symptoms. Meeting w/dietitian today as well Major depressive disorder, recurrent episode, mo derate 05/06/2024 Essential hypertension 02/13/2022 Overweight (BMI 25.0-29.9) 08/13/2017 Bariatric surgery status 08/13/2017 Assessment & Plan (01/06/2025 11:24 AM CDT): He has continued his vitamins - will order updated folate/B1 w/last hospitalization just to ensure not low. Recommend RD f/up visit in next month to assess vitamins/nutritional status. MTM f/up in 1-2 months for closer follow up as well w/starting new medication. Seeing neurology for hospital follow-up and continued recs for possible wernicke's encephalopathy. He has stayed off alcohol. Seeing hepatology as well this coming February. We reviewed recommendations for muscle conservation including eating three meals daily, good protein intake, and strength training. Vitamin D deficiency 08/13/2017 SLAP shoulder tear 06/15/2010 Overview (06/15/2010): left Herniated cervical intervertebral disc 0 Sciatic neuralgia 09/08/2009 Sleep disorder 08/01/2009 Anxiety 05/31/2009 Condyloma 02/16/2009 Cervical pain 02/16/2009 Migraine with aura 09/10/2003 Esophageal reflux 09/10/2003 Resolved Problems Problem Noted Date Diagnosed Date Resolved Date Hypokalemia 12/12/2023 12/15/2023 Hyponatremia 12/12/2023 12/15/2023 Perforated gastric ulcer 07/10/201702/2023 [facility] 09/29/2010 04/06/2024 Brachial neuritis or radiculitis 02/21/2009 03/17/2009 Overview (07/22/2015): Problem list name updated by automated process. Provider to review Encounters Date Type Department Care Team Description 05/17/2025 2:00 PM CDT Lab [facility] [address] [phone] High risk medication use (Primary Dx) 05/17/2025 Travel 05/07/2025 1:00 PM CDT Therapy Visit [facility] [address] [place] [phone] Mary Trent, PAZack Pineda, PT Cervical pain (Primary Dx); Class 1 obesity without serious comorbidity with body mass index (BMI) of 30.0 to 30.9 in adult, unspecified obesity type 05/07/2025 Travel 05/05/2025 8:20 AM CDT Virtual Visit [place] [address] Tammi Mcclellan, NINFA [address] [facility] Mobile [place] [phone] Devon Hernandez MD Anemia, unspecified type (Primary Dx) 04/30/2025 9:00 AM CDT Office Visit [facility] [address] [place] [phone] Mary Trent, DAVIDC Class 1 obesity without serious comorbidity with body mass index (BMI) of 30.0 to 30.9 in adult, unspecified obesity type (Primary Dx) 04/30/2025 Travel 04/27/2025 Travel 04/20/2025 MyC Medical Advice [facility] [place] [address] [place] [phone] Whit Carrasquillo, PRESIDENT AND CHIEF OPERATING OFFICER 04/16/2025 Documentation Only [facility] Service Line [address] [place] [phone] Devon Hernandez MD 04/16/2025 Results Follow-Up [facility] [address] [place] [phone] Devon Hernandez MD Subj: Message about your results 04/14/2025 1:40 PM CDT Oncology Visit [place] [address] Tammi Mcclellan, NINFA [address] [facility] Mobile [place] [phone] Mary Trent, Devon Denis MD Anemia, unspecified type (Primary Dx); Wernicke encephalopathy; Bariatric surgery status; Hypomagnesemia 04/14/2025 Travel 04/14/2025 PRE VISIT [place] [address] Tammi Mcclellan, NINFA [address] [facility] Mobile [place] [phone] Devon Hernandez MD *-*INCOMING RECORDS*-* (Wernicke encephalopathy [E51.2]/Bariatric surgery status [Z98.84] ) 04/09/2025 Travel 04/07/2025 MyC Refill [facility] [address] [phone] Robyn You APRN CLICKING MACHINE OPERATOR Refill Request 04/07/2025 MyC Refill [facility] [address] [place] [phone] Mary Trent PA-C Refill Request 04/07/2025 Refill [facility] Weight Loss [address] [place] [phone] Mary Trent PA-C Medication Refill 04/07/2025 Refill [facility] [address] [phone] Robyn You APRN CLICKING MACHINE OPERATOR Medication Refill 03/09/2025 10:30 AM CDT Office Visit [facility] - [address], [address] [place] [phone] Deshawn Veloz MD Peripheral polyneuropathy (Primary Dx); Restless leg syndrome 03/09/2025 Travel 03/08/2025 Travel 03/07/2025 Results Follow-Up [facility] [address] [phone] Cal Zelaya PA-C Subj: Message about your results 03/03/2025 Orders Only [facility] [address] [place] [phone] Mary Trent PA-C Postsurgical malabsorption (Primary Dx); Low magnesium level 03/03/2025 Results Follow-Up [facility] [address] [place] [phone] Mary Trent PA-C Dx: Bariatric surgery status (Primary Dx) 03/02/2025 9:45 AM CDT Office Visit [facility] [address] [phone] Cal Zelaya PA-C Metabolic dysfunction-associat ed steatotic liver disease and increased alcohol intake (MetALD) (Primary Dx); Wernicke encephalopathy; Bariatric surgery status 03/02/2025 8:45 AM CDT Lab [facility] [address] 1st [place] [phone] Low magnesium level; Transaminitis; Abnormal results of liver function studies; Encounter for screening for other viral diseases 03/02/2025 Results Follow-Up [facility] [address] [phone] Cal Zelaya PA-C Subj: Message about your results 03/02/2025 Travel 03/02/2025 PRE VISIT [facility] [address] [phone] Cal Zelaya PA-C *-*INCOMING RECORDS*-* from Last 3 Months Immunizations Immunization Administration Dates Next Due COVID-19 12+ (Pfizer) 08/21/2023 COVID-19 MONOVALENT 12+ (Pfizer) 11/16/2021,01/20,01/19/2021 Flu, Unspecified 07/02/2022 [id number] Novel Flu P-free 10/25/2009 HEPA 07/21/2001 HepB 10/27/2001,07/21/2001 Influenza (H1N1) 10/25/2009 Influenza (IIV3) PF 08/10/2010, 9,09/10/2008,2006,08/20/2006 Influenza Vaccine 18-64 (Flublok) 07/27/2021 Influenza Vaccine >6 months,quad, PF 08/21/2023, 07/17/2017 MMR (MMRII) 11/29/1994 TD,PF 7+ (Tenivac) 04/15/2004 TDAP (Adacel,Boostrix) 07/27/2021 Td (Adult), Adsorbed 11/29/1994 Zoster recombinant adjuvante d (Shingrix) 01/08/2023,10/16/2022 Family History Medical History Relation Comments Hypertension Brother Cancer Father Relation Status Comments Brother Father (Age 53) lung cancer Social History Tobacco Use Types Packs/Day Years [...] relatives? 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 Gender Identity Male 07/22/2021 2:30 PM CDT Sexual Orientation Straight 07/22/2021 2: 30 PM CDT Last Filed Vital Signs Vital Sign Reading Time Taken Comments Blood Pressure 125/84 04/30/2025 8:53 AM CDT Pulse 54 04/30/2025 8:53 AM CDT Temperature 36.5 C (97.7 F) 03/02/2025 9:19 AM CDT Respiratory Rate 16 04/14/2025 1:37 PM CDT Oxygen Saturation 91% 04/30/2025 8:53 AM CDT Inhaled Oxygen Concentration - - Weight 100.7 kg (222 lb) 05/05/2025 7:52 AM CDT Height 182.9 cm (6') 05/05/2025 7:52 AM CDT Body Mass Index 30.11 05/05/2025 7:52 AM CDT Plan of Treatment Upcoming Encounters Date Type Department Care Team (Late st Contact Info) Description 05/28/2025 1:40 PM CDT Therapy Visit [facility] [address] [phone] Mary Trent PA-C [address] [facility] [address] [place] [address] [place] [address] [place] [phone] 06/04/2025 1:40 PM CDT Therapy Visit [facility] [address] [phone] Mary Trent PA-C [address] [facility] [phone] [place] [address] [place] [address] [place] [phone] 07/01/2025 10:30 AM CDT Virtual Visit [facility] [place] [address] [place] [phone] Mary Trent PA-C [address] [facility] [id number] 07/01/2025 11:00 AM CDT Virtual Visit [facility] [place] [phone] [place] [address] [place] [phone] Christina Paz, RD, LD [address] [place] [id number] 09/20/2025 10:00 AM GERMINATION TESTING MANAGER Office Visit [facility] Neu[facility] [address] [facility], [address] [place] [phone] Deshawn Veloz MD [address] [place] [address] Health Maintenance Due Date Last Done Comments ANNUAL REVIEW OF HM ORDERS 1968 CT COLONOGRAPHY 1968 DEPRESSION ACTION PLAN 1968 FLEX SIG 1968 COLONOSCOPY 1978 PNEUMOCOCCAL VACCINE 50+ YEARS (1 of 2 - PCV) 1987 HEPATITIS B VACCINE (3 of 3 - 19+ 3-dose series) 01/19/2002 10/27/2001, 07/21/2001 FIT 04/18/2023 04/18/2022, 04/18/2022 COVID-19 VACCINE ( season) 2024 08/21/2023, 07/02/2022, 11/16/2021, Additional history exists LIPID 12/04/2024 12/04/2023, 06/22, 07/27/2021 MEDICARE ANNUAL WELLNESS VISIT 12/04/2024 12/04/2023, 10/16/2022, 07/27/2021 DEPRESSION 12 MO INDEX REPEAT PHQ-9 03/07/2025 02/11/2025, 12/17/2024, 09/04/2024, Additional history exists INFLUENZA VACCINE (#1) 2025 , 07/02/2022, 07/27/2021, Additional history exists PHQ-9 08/13/2025 02/11/2025, 11/22, 09/04/2024, Additional history exists BMP 03/02/2026 03/02/2025, 01/19, 12/17/2024, Additional history exists COLORECTAL CANCER SCREENING 12/10/2026 sDNA (Cologuard) 12/10/2026 12/10/2023, 12/10/2023 DIABETES SCREENING 03/02/2028 03/02/2025, 0 01/31/2025, 12/17/2024, Additional history exists ADVANCE CARE PLANNING 01/02/2029 01/03/2024 , 04/05/2023, 10/16/2022 DTAP/TDAP/TD VACCINE (2 - Td or Tdap) 07/27/2031 07/27/2021, 04/15/2004, 11/29/1994 HEPATITIS C SCREENING Completed 08/24/2022 HIV SCREENING Completed 08/24/2022 ZOSTER VACCINE Completed 01/08/2023, 10/16/2022 HPV VACCINE (No Doses Required) Completed MENINGITIS VACCINE Aged Out No longer eligible based on patient's age to complete this topic Procedures Procedure Name Priority Date/Time Associated Diagnosis Comments URINE DRUG SCREEN Routine 05/17/2025 2:1 7 PM CDT High risk medication use URINE DRUG SCREEN PANEL Routine 05/17/2025 2:17 PM CDT High risk medication use BLOOD MORPHOLOGY PATHOLOGIST REVIEW Routine 04/14/2025 2:29 PM CDT Anemia, unspecified type BLOOD MORPHOLOGY PATHOLOGIST REVIEW Routine 04/14/2025 2:28 PM CDT Anemia, unspecified type MAGNESIUM Add-On 04/14/2025 2:28 PM CDT Anemia, unspecified type Hypomagnesemia MORPHOLOGY TRACKING Routine 04/14/2025 2 :28 PM CDT Anemia, unspecified type RETICULOCYTE COUNT Routine 04/14/2025 2: 28 PM CDT Anemia, unspecified type CBC WITH PLATELETS AND DIFFERENTIAL Routine 04/14/2025 2:28 PM CDT Anemia, unspecified type IRON AND IRON BINDING CAPACITY Routine 04/14/2025 2:28 PM CDT Anemia, unspecified type FERRITIN Routine 04/14/2025 2:28 PM CDT Anemia, unspecified type SOLUBLE TRANSFERRIN RECEPTOR Routine 04/14/2025 2:28 PM CDT Anemia, unspecified type HAPTOGLOBIN Routine 04/14/2025 2:28 PM CDT Anemia, unspecified type LACTATE DEHYDROGENASE Routine 04/14/2025 2:28 PM CDT Anemia, unspecified type FIBROSIS SCAN Routine 03/05/2025 9:27 AM CDT Fatty liver HEPATITIS B SURFACE ANTIGEN Routine 03/02/2025 9:02 AM CDT Transaminitis Encounter for screening for other viral diseases HEPATITIS B CORE ANTIBODY Routine 03/02/2025 9:02 AM CDT Transaminitis Encounter for screening for other viral diseases HEPATITIS B SURFACE ANTIBODY Routine 03/02/2025 9:02 AM CDT Transaminitis Encounter for screening for other viral diseases CBC WITH PLATELETS Routine 03/02/2025 9: 02 AM CDT Transaminitis BASIC METABOLIC PANEL Routine 03/02/2025 9:02 AM CDT Transaminitis HEPATIC FUNCTION PANEL Routine 03/02/2025 9:02 AM CDT Transaminitis INR Routine 03/02/2025 9:02 AM CDT Transaminitis Abnormal results of liver function studies MAGNESIUM Routine 03/02/2025 9:02 AM CDT Low magnesium level US IMAGING - HIM SCAN 03/02/2025 12:00 AM CDT COLOGUARD([employer]) Routine 12/10/2023 7:30 PM GERMINATION TESTING MANAGER Screen for colon cancer LIPID REFLEX TO DIRECT LDL PANEL Routine 12/04/2023 11:53 AM GERMINATION TESTING MANAGER Encounter for screening for lipid disorder HIV ANTIGEN ANTIBODY COMBO Routine 08/24/2022 7:35 AM CDT Screening for HIV (human immunodeficiency virus) HEPATITIS C SCREEN REFLEX TO HCV RNA QUANT AND GENOTYPE Routine 08/24/2022 7:35 AM CDT Need for hepatitis C screening test FECAL COLORECTAL CANCER SCREEN FIT Routine 04/18/2022 9:00 AM CDT Encounter for colorectal cancer screening from Last 3 Months or Most Recently Relevant to Health Maintenance Results * Urine Drug Screen Panel (05/17/2025 2:17 PM CDT) Amphetamines Urine Screen Negative Screen Negative 05/17/2025 [...] 2:17 PM CDT 05/17/2025 2:17 PM CDT us Adelita Pulido PA-C LAB - URINE ORDERABL ES Final Result [facility] [place] [facility] [address] [facility][1], Room [address] [phone] * Bld morphology pathology review (04/14/2025 2:29 PM CDT) Final Diagnosis Slight anemia, normochromic normocytic. 04/15/2025 3:12 PM T [facility] at 1512 CDT Clinical Information Anemia 04/15/2025 3:12 PM T [facility] Peripheral Smear The red blood [...] circulating blasts are seen. 04/15/2025 3:12 PM [facility] Peripheral Hematologic Data Latest Reference [...] Data is abnormally low 04/15/2025 3:12 PM CDT [facility] Performing Labs The technical component of this testing was completed at [facility], [facility] and [facility] 04/15/2025 3:12 PM CDT [facility] Blood STRUCTURE OF LEFT UPPER LIMB / Unknown Venipuncture / Unknown 04/14/2025 2:29 PM CDT 04/14/2025 2:36 PM CDT Comment:CBC with platelets d ifferential and Reticulocyte count should be ordered concurrently with the peripheral smear (all tests performed on the same tube of blood). The concurrent CBC with platelets differential and Reticulocyte count are incorporated into the final peripheral smear report and are necessary for interpretation. us Devon Hernandez MD LAB - BEAKER AP Final Result [facility]ology Lab [address] [facility]. Lab (1st floor, no room number) [place] [address] * Morphology Tracking (04/14/2025 2:28 PM CDT) Blood STRUCTURE OF LEFT UPPER LIMB / Unknown Venipuncture / Unknown 04/14/2025 2:28 PM CDT 04/14/2025 2:36 PM CDT us Devon Hernandez MD LAB - BLOOD ORDERABLES Final R esult LABORATORY [facility] [address] 1st floor, Room [address] [place] [address], [facility] [phone] * (ABNORMAL) CBC with platelets and differential (04/14/2025 2:28 PM CDT) [facility] WBC Count 6.6 4.0 - 11.0 10e3/uL [...] LAB - BLOOD ORDERABLES Final R esult [facility] [address] 1st floor, [address] [address], [facility] [phone] * Lactate Dehydrogenase (04/14/2025 2:28 PM CDT) [facility] Lactate Dehydrogenase 166 0 - 250 U/L 04/14/2025 3:13 PM CDT LABORATORY Blood STRUCTURE OF LEFT UPPER LIMB / Unknown Venipuncture / Unknown 04/14/2025 2:28 PM CDT 04/14/2025 2:36 PM CDT us Devon Hernandez MD LAB - BLOOD ORDERABLES Final R esult [facility] [address] 1st floor, [address] [place] [address], [place] [phone] * Soluble transferrin receptor (04/14/2025 2:28 PM CDT) Soluble Transferrin Receptor 3.4 2.2 - 5.0 mg/L 04/16/2025 1:40 PM CDT [employer] Comment: INTERPRETIVE INFORMATION: Soluble Transferrin Receptor People [...] Fe Status High Normal High Performed By: [facility] [address] [place] [address] Inspector Rubber Stamp Die: Ryan Pretty MD, PhD CLIA Number: [id number] Blood STRUCTURE OF LEFT UPPER LIMB / Unknown Venipuncture / Unknown 04/14/2025 2:28 PM CDT 04/14/2025 2:36 PM CDT us Devon Hernandez MD LAB - BLOOD ORDERABLES Final R esult [employer] [address] [place] [address], [facility] [phone] * Reticulocyte count (04/14/2025 2:28 PM CDT) [facility] % Reticulocyte 1.4 0.5 - 2.0 % 04/14/2025 2:39 PM CDT LABORATORY Absolute Reticulocyte 0.057 0.025 - 0.095 10e6/uL 04/14/2025 2:39 PM CDT LABORATORY Blood STRUCTURE OF LEFT UPPER LIMB / Unknown Venipuncture / Unknown 04/14/2025 2:28 PM CDT 04/14/2025 2:36 PM CDT Devon Hernandez MD LAB - BLOOD ORDERABLES Final R esult [facility] [address] 1st floor, Room [address] [place] [address], [place] [phone] * Magnesium (04/14/2025 2:28 PM CDT) Only the most recent of2 resultswithin the time period is included. Magnesium 1.8 1.7 - 2.3 mg/dL 04/14/2025 3:13 PM CDT LABORATORY Blood STRUCTURE OF LEFT UPPER LIMB / Unknown Venipuncture / Unknown 04/14/2025 2:28 PM CDT 04/14/2025 2:36 PM CDT Devon Hernandez MD LAB - BLOOD ORDERABLES Final R esult Performing Organization Address [place] Hospital/ZIP Co de Phone Number LAB[facility]ATORY [facility] [address] 1st floor, Room [address] [place] [address], [place] [phone] * (ABNORMAL) Iron and iron binding capacity [...] - BLOOD ORDERABLES Final R esult LABORATORY [facility] Lab [address] 1st floor, Room [address] [place] [address], [facility] [phone] * Haptoglobin (04/14/2025 2:28 PM CDT) Haptoglobin 165 30 - 200 mg/dL 04/14/2025 6:03 PM CDT [facility] Blood STRUCTURE OF LEFT UPPER LIMB / Unknown Venipuncture / Unknown 04/14/2025 2:28 PM CDT 04/14/2025 2:36 PM CDT us Devon Hernandez MD LAB - BLOOD ORDERABLES Final R esult U LABORATORY [facility] [place] Core Lab [address] [facility], Room [address] [id number] * Ferritin (04/14/2025 2:28 PM CDT) Ferritin 304 31 - 409 ng/mL 04/14/2025 6:12 PM CDT [facility] LAB[facility]ATORY Blood STRUCTURE OF LEFT UPPER LIMB / Unknown Venipuncture / Unknown 04/14/2025 2:28 PM CDT 04/14/2025 2:36 PM CDT Devon Hernandze MD LAB - BLOOD ORDERABLES Final R esult U LABORATORY [facility] [place] Core Lab [address] [facility][1], Room [address] [id number] * Fibrosis Scan (03/05/2025 9:27 AM CDT) Anatomical Region Laterality Modality Other Impressions 03/05/2025 9:27 AM CDT Patient: Chelsey Zuñiga Date: 1970 ORDERING PROVIDER: Cal Zelaya PA-C EXAMINATION: Liver FibroScan DATE OF EXAM: 03/02/25 INDICATION: Liver fibrosis assessment HISTORY: MASH/MASLD A series of at least 10 Vibration Controlled Transient Elastography (VCTE) measurements were performed by placing the XL probe over the center of the liver parenchyma and mechanically inducing a 50 Hertz shear wave. Each resulting VCTE measurement was analyzed to determine shear wave propagation speed and calculate the equivalent liver stiffness. All measurements were reviewed by the bead forming machine set up operator and physician for technical accuracy. Data variability across the acquired measurements was quantified with IQR/Median Percentage. FINDINGS: The median liver stiffness was 6.4 kPa with IQR/Median percentage of 30 %. The measure CAP ultrasound attenuation rate value was 320 dB/m. IMPRESSION: 1. Estimated liver fibrosis is Stage 0-1 2. Steatosis Grade S3 The results of the FibroScan examination were assessed by taking into account the quality of the measurement thumbnails, number of measurements, and IQR/Median ratio. I have personally reviewed the examination and initial interpretation, and I agree with the findings. Cal Zelaya PA-C Cal Zelaya PA-C ULTRASOUND Final Result * Hepatitis B Surface Antibody (03/02/2025 9:02 AM CDT) Hepatitis B Surface Antibody Nonreactive 03/02/2025 12:37 PM CDT [facility] Comment:Nonreactive results, defined as anti-HBs levels of less than 8.5 mIU/mL, indicate a lack of recovery from acute or chronic hepatitis B or inadequate immune response to HBV vaccination. Hepatitis B Surface Antibody Instrument Value 7.66 <8.5 m[IU]/mL 03/02/2025 12:37 PM CDT [facility] Blood STRUCTURE OF RIGHT UPPER LIMB / Unknown Venipuncture / Unknown 03/02/2025 9:02 AM CDT 03/02/2025 9:02 AM CDT Cal Zelaya PA-C LAB - BLOOD ORDERABLE S Final Result [facility] LABORATORY [facility] [place] Core Lab [address] [facility][1], Room [address] [place] [id number] * INR (03/02/2025 9:02 AM CDT) INR 1.10 0.85 - 1.15 03/02/2025 9:15 AM CDT [facility] LABORATORY - CORE LAB PT 14.4 11.8 - 14.8 Seconds 03/02/2025 9:15 AM CDT [facility] LABORATORY - CORE LAB Blood STRUCTURE OF RIGHT UPPER LIMB / Unknown Venipuncture / Unknown 03/02/2025 9:02 AM CDT 03/02/2025 9:02 AM CDT Cal Zelaya PA-C LAB - BLOOD ORDERABLE S Final Result [facility] LABORATORY - CORE LAB [facility] Surgery [address] 1st Floor [place] [address] * Hepatitis B surface antigen (03/02/2025 9:02 AM CDT) Pathologist [facility] Hepatitis B Surface Antigen Nonreactive Nonreactive 03/02/2025 12:37 PM CDT U LABORATORY Blood STRUCTURE OF RIGHT UPPER LIMB / Unknown Venipuncture / Unknown 03/02/2025 9:02 AM CDT 03/02/2025 9:02 AM CDT Cal Zelaya PA-C LAB - BLOOD ORDERABLE S Final Result U LABORATORY [facility] Core Lab [address] [facility][1], [address] 3[address] [place] [address] * Hepatitis B core antibody (03/02/2025 9:02 AM CDT) Hepatitis B Core Antibody Total Nonreactive Nonreactive 03/02/2025 12:37 PM CDT U LABORATORY Comment:Nonreactive hepatiti s B core antibody test results indicate the absence of exposure to hepatitis B virus and no evidence of recent, past/resolved, or chronic hepatitis B. Blood STRUCTURE OF RIGHT UPPER LIMB / Unknown Venipuncture / Unknown 03/02/2025 9:02 AM CDT 03/02/2025 9:02 AM CDT us Cal Zelaya PA-C LAB - BLOOD ORDERABLE S Final Result U LABORATORY [facility] [place] [facility] Lab [address] [facility][1], Room [address] [id number] * (ABNORMAL) Hepatic function panel (03/02/2025 9:02 AM CDT) Protein Total 6.3(L) 6.4 - 8.3 g/dL 03/02/2025 9:29 AM CDT [facility] LABORATORY - CORE LAB Albumin 3.6 3.5 - 5.2 g/dL 03/02/2025 9:29 AM CDT [facility] LABORATORY - CORE LAB Bilirubin Total 0.3 <=1.2 mg/dL 03/02/2025 9:29 AM CDT [facility] LABORATORY - CORE LAB Alkaline Phosphatase 76 40 - 150 U/L 03/02/2025 9:29 AM CDT [facility] LABORATORY - CORE LAB AST 24 0 - 45 U/L 03/02/2025 9:29 AM CDT [facility] LABORATORY - CORE LAB ALT 14 0 - 70 U/L 03/02/2025 9:29 AM CDT [facility] LABORATORY - CORE LAB Bilirubin Direct 0.19 0.00 - 0.30 mg/dL 03/02/2025 9:29 AM CDT [facility] LABORATORY - CORE LAB Blood STRUCTURE OF RIGHT UPPER LIMB / Unknown Venipuncture / Unknown 03/02/2025 9:02 AM CDT 03/02/2025 9:02 AM CDT us Cal Zelaya PA-C LAB - BLOOD ORDERABLE S Final Result [facility] LABORATORY - CORE LAB [facility] Clin[facility] [address] [place] [address] 1st Floor [place] [address] * Basic metabolic panel (03/02/2025 9:02 AM CDT) Sodium 142 135 - 145 mmol/L 03/02/2025 9:29 AM CDT [facility] LABORATORY - CORE LAB Potassium 4.8 3.4 - 5.3 mmol/L 03/02/2025 9:29 AM CDT [facility] LABORATORY - CORE LAB Chloride 105 98 - 107 mmol/L 03/02/2025 9:29 AM CDT [facility] LABORATORY - CORE LAB Carbon Dioxide (CO2) 28 22 - 29 mmol/L 03/02/2025 9:29 AM CDT [facility] LABORATORY - CORE LAB Anion Gap 9 7 - 15 mmol/L 03/02/2025 9:29 AM CDT [facility] LABORATORY - CORE LAB Urea Nitrogen 11.0 6.0 - 20.0 mg/dL 03/02/2025 9:29 AM CDT [facility] LABORATORY - CORE LAB Creatinine 0.93 0.67 - 1.17 mg/dL 03/02/2025 9:29 AM CDT [facility] LABORATORY - CORE LAB GFR Estimate >90 >60 mL/min/1.7 3m2 03/02/2025 9:29 AM CDT [facility] LABORATORY - CORE LAB Comment:eGFR calculated usin g 2020 CKD-EPI equation. Calcium 9.1 8.8 - 10.4 mg/dL 03/02/2025 9:29 AM CDT [facility] LABORATORY - CORE LAB Glucose 88 70 - 99 mg/dL 03/02/2025 9:29 AM CDT [facility] LABORATORY - CORE LAB Blood STRUCTURE OF RIGHT UPPER LIMB / Unknown Venipuncture / Unknown 03/02/2025 9:02 AM CDT 03/02/2025 9:02 AM CDT Cal Zelaya PA-C LAB - BLOOD ORDERABLE S Final Result [facility] LABORATORY - CORE LAB [facility] [place] [address] [facility] 1st Floor [place] [address] * (ABNORMAL) CBC with platelets (03/02/2025 9:02 AM CDT) WBC Count 7.5 4.0 - 11.0 10e3/uL 03/02/2025 9:06 AM CDT [facility] LABORATORY - CORE LAB RBC Count 3.73(L) 4.40 - 5.90 10e6/uL 03/02/2025 9:06 AM CDT [facility] LABORATORY - CORE LAB Hemoglobin 11.3(L) 13.3 - 17.7 g/dL 03/02/2025 9:06 AM CDT [facility] LABORATORY - CORE LAB Hematocrit 35.2(L) 40.0 - 53.0 % 03/02/2025 9:06 AM CDT [facility] LABORATORY - CORE LAB MCV 94 78 - 100 fL 03/02/2025 9:06 AM CDT [facility] LABORATORY - CORE LAB MCH 30.3 26.5 - 33.0 pg 03/02/2025 9:06 AM CDT [facility] LABORATORY - CORE LAB MCHC 32.1 31.5 - 36.5 g/dL 03/02/2025 9:06 AM CDT [facility] LABORATORY - CORE LAB RDW 15.1(H) 10.0 - 15.0 % 03/02/2025 9:06 AM CDT [facility] LABORATORY - CORE LAB Platelet Count 228 150 - 450 10e3/uL 03/02/2025 9:06 AM CDT [facility] LABORAT[facility] - CORE LAB Blood STRUCTURE OF RIGHT UPPER LIMB / Unknown Venipuncture / Unknown 03/02/2025 9:02 AM CDT 03/02/2025 9:02 AM CDT Cal Zelaya PA-C LAB - BLOOD ORDERABLE S Final Result [facility] LABORATORY - CORE LAB [facility] [place] [address] [place] [address] 1st Floor [place] [address] * US Imaging - HIM Scan (03/02/2025 12:00 AM CDT) Anatomical Region Laterality Modality Other 03/02/2025 us Provider Outside IMG US ORDERABLES Final Result * COLOGUARD([employer]) (12/10/2023 7:30 PM GERMINATION TESTING MANAGER) COLOGUARD-ABSTRACT Negative Negative 2023 12:22 AM GERMINATION TESTING MANAGER [employer] (CLIA #:[id number]) Comment: NEGATIVE TEST RESULT. A negative Cologuard result indicates a low likelihood that a colorectal cancer (CRC) or advanced adenoma (adenomatous polyps with more advanced pre-malignant features) is present. The chance that a person with a negative Cologuard test has a colorectal cancer is less than 1 in 1500 (negative predictive value >99.9%) or has an advanced adenoma is less than 5.3% (negative predictive value 94.7%). These data are based on a prospective cross-sectional study of 10,000 individuals at average risk for colorectal cancer who were screened with both Cologuard and colonoscopy. (Kvng Coles et al, N Engl J Med 2014;370(14):0376-5512) The normal value (reference range) for this assay is negative. COLOGUARD RE-SCREENING RECOMMENDATION: Periodic colorectal cancer screening is an important part of preventive healthcare for asymptomatic individuals at average risk for colorectal cancer. Following a negative Cologuard result, the [place] [employer] Society and U.S. Multi-Society Task Force screening guidelines recommend a Cologuard re-screening interval of 3 years. References: [place] [employer] Guideline for Colorectal Cancer Screening: https://www.cancer.org/cancer/ecvaq-ierwfl-kyzjnp/izyxkijxq-cvtcvnwzv-akwntkc/ac s-rec ommendations.html.; Gucci DK, Elvis HERNANDEZ, Minoo McgeeK, Colorectal Cancer Screening: Recommendations for Physicians and Patients from the U.S. Multi-Society Task Force on Colorectal Cancer Screening , Am J Gastroenterology 2017; 112:2047-9584. TEST DESCRIPTION: Composite algorithmic analysis of stool DNA-biomarkers with hemoglobin immunoassay. Quantitative values of individual biomarkers are not reportable and are not associated with individual biomarker result reference ranges. Cologuard is intended for colorectal cancer screening of adults of either sex, 45 years or older, who are at average-risk for colorectal cancer (CRC). Cologuard has been approved for use by the U.S. FDA. The performance of Cologuard was established in a cross sectional study of average-risk adults aged 50-84. Cologuard performance in patients ages 45 to 49 years was estimated by sub-group analysis of near-age groups. Colonoscopies performed for a positive result may find as the most clinically significant lesion: colorectal cancer [4.0%], advanced adenoma (including sessile serrated polyps greater than or equal to 1cm diameter) [20%] or non- advanced adenoma [31%]; or no colorectal neoplasia [45%]. These estimates are derived from a prospective cross-sectional screening study of 10,000 individuals at average risk for colorectal cancer who were screened with both Cologuard and colonoscopy. (Kvng Guzman al, N Engl J Med 2014;370(14):2482-2467.) Cologuard may produce a false negative or false positive result (no colorectal cancer or precancerous polyp present at colonoscopy follow up). A negative Cologuard test result does not guarantee the absence of CRC or advanced adenoma (pre-cancer). The current Cologuard screening interval is every 3 years. ([place] Cancer Society and U.S. Multi-Society Task Force). Cologuard performance data in a 10,000 patient pivotal study using colonoscopy as the reference method can be accessed at the following location: www.[employer]/results. Additional description of the Cologuard test process, warnings and precautions can be found at www.[employer]neratorrd.com. Stool specimen (specimen) 12/10/2023 7:30 PM GERMINATION TESTING MANAGER 12/12/2023 12:24 PM GERMINATION TESTING MANAGER Cosme Wayne MD LABORATORY Final Re sult [employer] [address] [place] [address], [facility] [phone] [employer] (CLIA #:[id number]) [address] [place] [address] * Lipid panel reflex to direct LDL Non-fasting (12/04/2023 11:53 AM GERMINATION TESTING MANAGER) Cholesterol 168 <200 mg/dL 12/04/2023 8:43 PM GERMINATION TESTING MANAGER [facility] Triglycerides 37 <150 mg/dL 12/04/2023 8:43 PM GERMINATION TESTING MANAGER [facility] Direct Measure HDL 123 >=40 mg/dL 2023 8:43 PM GERMINATION TESTING MANAGER [facility] LDL Cholesterol Calculated 38 <=100 mg/dL 12/04/2023 8:43 PM GERMINATION TESTING MANAGER [facility] Non HDL Cholesterol 45 <130 mg/dL 12/04/2023 8:43 PM GERMINATION TESTING MANAGER [facility] Patient Fasting > 8hrs? Yes 12/04/2023 8:43 PM GERMINATION TESTING MANAGER OX LABORATORY Blood BLOOD SPECIMEN / Unknown Venipuncture / Unknown 12/04/2023 11:53 AM GERMINATION TESTING MANAGER 12/04/2023 11:53 AM GERMINATION TESTING MANAGER Narrative [facility] LAB[facility]ATORY - 12/04/2023 8:43 PM GERMINATION TESTING MANAGER Cholesterol Desirable: <200 mg/dL Triglycerides Normal: Less than 150 mg/dL Borderline High: 150-199 mg/dL High: 200-499 mg/dL Very High: Greater than or equal to 500 mg/dL Direct Measure HDL Female: Greater than or equal to 50 mg/dL Male: Greater than or equal to 40 mg/dL LDL Cholesterol Desirable: <100mg/dL Above Desirable: 100-129 mg/dL Borderline High: 130-159 mg/dL High: 160-189 mg/dL Very High: >= 190 mg/dL Non HDL Cholesterol Desirable: 130 mg/dL Above Desirable: 130-159 mg/dL Borderline High: 160-189 mg/dL High: 190-219 mg/dL Very High: Greater than or equal to 220 mg/dL us Cosme Wayne MD LAB - BLOOD ORDERABLES F inal Result U LABORATORY [facility] [place] Core Lab [address] [facility][1], Room [address] [address], [facility] [phone] OX LABORATORY [facility] Lab [address] Lab (no room number, 1st floor of clinic) [place] [address], [facility] [phone] * HIV Antigen Antibody Combo (08/24/2022 7:35 AM CDT) HIV Antigen Antibody Combo Nonreactive Nonreactive 08/24/2022 1:43 PM CDT SPECIALTY CORE/PROT/EN DO Comment:HIV-1 p24 Ag & HIV-1 /HIV-2 Ab Not Detected Blood STRUCTURE OF RIGHT UPPER LIMB / Unknown Venipuncture / Unknown 08/24/2022 7:35 AM CDT 08/24/2022 7:35 AM CDT Maria T Olson PA-C LAB - BLOOD ORDERAB LES Final Result [facility] SPECIALTY CORE/PROT/ENDO UM Specialty Core/Prot/Endo [address] [facility], Room [address] [phone] * Hepatitis C Screen Reflex to HCV RNA Quant and Genotype (08/24/2022 7:35 AM CDT) Pathologist [facility] Hepatitis C Antibody Nonreactive Nonreactive 08/24/2022 1:43 PM CDT UM SPECIALTY CORE/PROT/EN DO Blood STRUCTURE OF RIGHT UPPER LIMB / Unknown Venipuncture / Unknown 08/24/2022 7:35 AM CDT 08/24/2022 7:35 AM CDT Narrative UM SPECIALTY CORE/PROT/ENDO - 08/24/2022 1:43 PM CDT Assay performance characteristics have not been established for newborns, infants, and children. us Maria T Olson PA-C LAB - BLOOD ORDERAB LES Final Result UM SPECIALTY CORE/PROT/ENDO Specialty Core/Prot/Endo 500 [facility], Room [address] [phone] * Fecal colorectal cancer screen FIT (04/18/2022 9:00 AM CDT) [facility] Occult Blood Screen FIT Negative Negative 04/20/2022 5:25 PM CDT U LABORATORY Stool RECTAL CONTENTS / Unknown Non-blood Collection / Unknown 04/18/2022 9:00 AM CDT 04/20/2022 5:06 PM CDT Cosme Wayne MD LAB - STOOLS ORDERABLES Final Result U LABORATORY [facility] [place] Core Lab [address] [facility] [address] [facility], [address] [address], [facility] [phone] from Last 3 Months or Most Recently Relevant to Health Maintenance Insurance [employer] ADVANTAGE [employer]ARE ADVANTAGE * Guarantor: Chelsey Zuñiga Account Type Relation to Patient Date of Phone Billing Address Medication Therapy Self 1970 [address] [place] [address] [employer] Advance Directives For more information, please contact: [phone] * Full Code (Latest Code Status on File) Date Activated Date Inactivated Comments 11/28/2024 8:09 PM 12/07/2024 7:57 PM All basic and advanced life-sustaining interventions are performed as appropriate Question Answer Comments Code status determined by: Discussion with patie nt/ legal decision maker * Full Code Date Activated Date Inactivated Comments 12/12/2023 5:59 PM 12/15/2023 4:27 PM All basic an d advanced life-sustaining interventions are performed as appropriate Question Answer Comments Code status determined by: Discussion with patie nt/ legal decision maker * Full Code Date Activated Date Inactivated Comments 07/10/2017 5:41 PM 07/15/2017 5:20 PM Care Teams Porcelain Mixer Relationship Specialty Start Date End Date Cosme Wayne MD [address] [place] [address] PCP - General Internal Medicine 08/27/22 Cosme Wayne MD [address] [place] [address] Assigned PCP 08/13/21 Deshawn Veloz MD [address] [address] Neurology 09/24/22 Deshawn Veloz MD [address] [place] [address] Assigned Neuroscience Provider 10/13/22 Mindy Harrison MD [address] [place] [address] Nephrology 04/22/23 Karine Rangel [facility] [address] [place], [place] [address] Pharmacist Pharmacist Steel Tester 09/07/24 Karine Rangel [facility] [address] [place], [place] [id number] Assigned MTM Pharmacist 09/12/24 Devon Hernandez MD [address] [place] [id number] Hematology & Oncology 12/23/24 Mary Trent PA-C [address] [place] [address] Physician Crystalizer Operator Bariatric 12/23/24 Cal Zelaya PA-C [address] [place] [address] Physician Crystalizer Operator Gastroenterology 12/28/24 Mary Trent PA-C [address] [place] [address] Assigned Surgical Provider 01/10/25 Cal Zelaya PA-C [address] [place] [address] Assigned Gastroenterology Provider 03/12/25 Devon Hernandez MD [address] [address] Assigned Cancer Care Provider 05/12/25
--- OUTSIDE RECORDS SUMMARY | 2025-05-22 16:07 | XMS_ITS | Encounter Summary ---
Author Organization [place] Address [address] [place] [address] Care Team Providers Care Enrober Name Role Phone Cosme Wayne MD Unavailable [phone] Cosme Wayne MD Primary Care Provider + Deshawn Veloz MD Unavailable Deshawn Veloz MD Unavailable Mindy Harrison MD Unavailable Mary Trent PA-C Unavailable [phone] Karine Rangel [facility] Unavailable [phone] Karine Rangel [facility] Unavailable [phone] Mariana Queen MD Unavailable [phone] Devon Hernandez MD Unavailable [phone] Mary Trent PA-C Unavailable [phone] Cal Zelaya PA-C Unavailable [phone] Mary Trent PA-C Unavailable [phone] Cal Zelaya PA-C Unavailable [phone] Devon Hernandez MD Unavailable [phone] Encounter Details Date Type Department Care Team (Late st Contact Info) Description 08/23/[address] [facility] [address] [place] [phone] Mary Trent PA-C [address] [place] [address] Social History Tobacco Use Types Packs/Day Years [...] relatives? 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 Gender Identity Male 07/22/2021 2:30 PM CDT Sexual Orientation Straight 07/22/2021 2: 30 PM CDT documented as of this encounter Plan of Treatment Upcoming Encounters Date Type Department Care Team (Late st Contact Info) Description 05/28/2025 1:40 PM CDT Therapy Visit [address] [place] [phone] Mary Trent, PAAllisonC [address] [place] [address] [place] [address] [place], [place] [address] 06/04/2025 1:40 PM CDT Therapy Visit [address] [place] [phone] Mary Trent PA-C [address] [place] [address] [place] [address] [place] [address] 07/01/2025 10:30 AM CDT Virtual Visit [facility] [place] [address] [facility] [address] [place] [phone] Mary Trent PA-C [address] [place] [address] 07/01/2025 11:00 AM CDT Virtual Visit [facility] [place] [address] [facility] [address] [place] [phone] Christina Paz, RD, [place] [address] [place] [id number] 09/20/2025 10:00 AM ASSISTANT PROFESSOR OF GEOGRAPHY Office Visit [facility] [place] [address] [facility], [address] [place] [phone] Deshawn Veloz MD [address] [place] [address] documented as of this encounter Visit Diagnoses Not on filedocumented in this encounter Additional Health Concerns Infection Onset Date Last Indicated Resolved Time Rule Out COVID-19 01/31/2025 01/31/2025 01/31/2025 1:07 PM CDT COVID-19 01/31/2025 01/31/2025 02/11/2025 11:3 9 PM CDT Assessment Noted Time PHQ-9 Depression Total Score: 11 024 2:44 PM CDT documented as of this encounter Care Teams Enrober Relationship Specialty Start Date End Date Cosme Wayne MD [address] [place] [address] PCP - General Internal Medicine 08/27/22 Cosme Wayne MD [address] [place] [address] Assigned PCP 08/13/21 Deshawn Veloz MD [address] [place] [address] Neurology 09/24/22 Deshawn Velzo MD [address] [place] [address] Assigned Neuroscience Provider 10/13/22 Mindy Harrison MD [address] [place] [address] Nephrology 04/22/23 Mary Trent PA-C [address] [place] [address] Assigned Surgical Provider 07/13/24 09/11/24 Karine Rangel RPH 9 [place] [address] Pharmacist Pharmacist Rotary Engraver 09/07/24 Karine Rangel RPH 9 [place] [address] Assigned [facility] Pharmacist 09/12/24 Mariana Queen MD [address] [place] [address] Assigned Surgical Provider 09/12/24 01/09/25 Devon Hernandez MD [address] [place], [place] [address] Hematology & Oncology 12/23/24 Mary Trent PA-C [address] [facility] [place] [address] Physician Casting Chipper Bariatric 12/23/24 Cal Zelaya PA-C [address] [place] [address] Physician Casting Chipper Gastroenterology 12/28/24 Mary Trent PA-C [address] [place] [address] Assigned Surgical Provider 01/10/25 Cal Zelaya PA-C [address] [place] [address] Assigned Gastroenterology Provider 03/12/25 Devon Hernandez MD [address] [place], [place] [address] Assigned Cancer Care Provider 05/12/25 documented as of this encounter
--- OUTSIDE RECORDS SUMMARY | 2025-05-22 16:07 | XMS_ITS | Encounter Summary ---
Author Organization [place] Address [address] [facility] [place] [address] Care Team Providers Care Enroute Controller Name Role Phone Cosme Wayne MD Unavailable [phone] Cosme Wayne MD Primary Care Provider + Deshawn Veloz MD Unavailable Deshawn Veloz MD Unavailable Mindy Harrison MD Unavailable Mary Trent PA-C Unavailable [phone] Karine Rangel [facility] Unavailable [phone] Karine Rangel [facility] Unavailable [phone] Mariana Queen MD Unavailable [phone] Devon Hernandez MD Unavailable [phone] Mary Trent PA-C Unavailable [phone] Cal Zelaya PA-C Unavailable [phone] Mary Trent PA-C Unavailable [phone] Cal Zelaya PA-C Unavailable [phone] Devon Hernandez MD Unavailable [phone] Encounter Details Date Type Department Care Team (Late st Contact Info) Description 06/26/2024 [facility] Medical Advice [address] [phone] Cosme Wayne MD [address] [place] [address] Social History Tobacco Use Types Packs/Day Years [...] relatives? 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 Gender Identity Male 07/22/2021 2:30 PM CDT Sexual Orientation Straight 07/22/2021 2: 30 PM CDT documented as of this encounter Plan of Treatment Upcoming Encounters Date Type Department Care Team (Late st Contact Info) Description 05/28/2025 1:40 PM CDT Therapy Visit [address] [place] [phone] Mary Trent PAAllisonC [address] [place], [place] [address] [place] [address] [facility] [address] [place], [place] [address] 06/04/2025 1:40 PM CDT Therapy Visit [place] [id number] [place] [phone] Mary Trent PA-C [address] [place] [address] [place] [address] [facility] [address] [place] [address] 07/01/2025 10:30 AM CDT Virtual Visit [facility] [place] [address] [facility] [address] [place] [phone] Mary Trent PA-C [address] [place] [address] 07/01/2025 11:00 AM CDT Virtual Visit [facility] [place] [address] [facility] [address] [place] [phone] Christina Paz, RD, [place] [address] [place] [address] 09/20/2025 10:00 AM AIRBORNE OPERATIONS SUPERINTENDENT Office Visit [facility] [place] [address] [facility], [address] [place] [phone] Deshawn Veloz MD [address] [place] [address] documented as of this encounter Visit Diagnoses Not on filedocumented in this encounter Additional Health Concerns Infection Onset Date Last Indicated Resolved Time Rule Out COVID-19 01/31/2025 01/31/2025 01/31/2025 1:07 PM CDT COVID-19 01/31/2025 01/31/2025 02/11/2025 11:3 9 PM CDT Assessment Noted Time PHQ-9 Depression Total Score: 05/06/2 024 2:44 PM CDT documented as of this encounter Care Teams Enroute Controller Relationship Specialty Start Date End Date Cosme Wayne MD [address] [place] [address] PCP - General Internal Medicine 08/27/22 Cosme Wayne MD [address] [place] [address] Assigned PCP 08/13/21 Deshawn Veloz MD [address] [place] [address] Neurology 09/24/22 Deshawn Veloz MD [address] [place] [address] Assigned Neuroscience Provider 10/13/22 Mindy Harrison MD [address] [place] [address] Nephrology 04/22/23 Mary Trent, PA-C [address] [place] [address] Assigned Surgical Provider 07/13/24 09/11/24 Karine Rangel RPH [address] [place] [address] 9275[address] Pharmacist Pharmacist Operators Teacher 09/07/24 Karine Rangel RPH [address] [place] [address] Assigned MTM Pharmacist 09/12/24 Mariana Queen MD [address] [place] [address] Assigned Surgical Provider 09/12/24 01/09/25 Devon Hernandez MD [address] [place] [address] Hematology & Oncology 12/23/24 Mary Trent PA-C [address] [place] [address] Physician Physical Therapy Supervisor Bariatric 12/23/24 Cal Zelaya PA-C [address] [place] [address] Physician Physical Therapy Supervisor Gastroenterology 12/28/24 Mary Trent PA-C [address] [place] [address] Assigned Surgical Provider 01/10/25 Cal Zelaya PA-C 9 [place] [address] Assigned Gastroenterology Provider 03/12/25 Devon Hernandez MD [address] [place] [address] Assigned Cancer Care Provider 05/12/25 documented as of this encounter
--- OUTSIDE RECORDS SUMMARY | 2025-05-22 16:07 | XMS_ITS | Encounter Summary ---
Author Organization [place] Address [address] [facility] [place] [address] Care Team Providers Care Auto Body Worker Name Role Phone Cosme Wayne MD Unavailable [phone] Cosme Wayne MD Primary Care Provider + Deshawn Veloz MD Unavailable Deshawn Veloz MD Unavailable Mindy Harrison MD Unavailable Karine Rangel [facility] Unavailable [phone] Karine Rangel [facility] Unavailable [phone] Mariana Queen MD Unavailable [phone] Devon Hernandez MD Unavailable [phone] Mary Trent-Baldemar Unavailable [phone] Cal Zelaya-C Unavailable [phone] Mary Trent-C Unavailable [phone] Cal Zelaya-Baldemar Unavailable [phone] Devon Hernandez MD Unavailable [phone] Encounter Details Date Type Department Care Team (Late st Contact Info) Description 09/30/2024 [facility] [address] [place] [address] Mary Trent PA-C [address] [place] [address] Social History Tobacco Use Types Packs/Day Years [...] relatives? Three times a week 12/04/2023 Attends Anabaptism Services Not on file 12/04 Active Member of Clubs or Organizations Not on f ile 12/04/2023 Attends Club or Organization Meetings Not on abad e 12/04/2023 Marital Status Not on file 12/04/2023 PHQ-2 Answer Date Recorded PHQ-2 Score 2 09/14/2024 [facility] of Occupat ional Health [...] in an overnight halfway, or couch-surfing.) Yes 12/04/2023 Are you worried [...] PM CDT Legal Sex Male 3:12 AM FARM EQUIPMENT ENGINEER Gender Identity Male 07/22/2021 2:30 PM CDT Sexual Orientation Straight 07/22/2021 2: 30 PM CDT documented as of this encounter Miscellaneous Notes * Telephone Encounter - Ashleigh Rubi, RN - 09/30/2024 9:38 AM FARM EQUIPMENT ENGINEER Pt requesting calcium. I can see that you put therapy completed on 09/07/24 when you saw pt. Pt is PO bariatric. Are we good to reinstate the calcium? Thank you. Ashleigh Simmons, MS, RD, RN EQUIPMENT ENGINEER documented in this encounter Plan of Treatment Upcoming Encounters Date Type Department Care Team (Late st Contact Info) Description 05/28/2025 1:40 PM CDT Therapy Visit [address] [address] Mary Trent, PAAllisonC [address] [place] [address] [place] [address] [place] [address] 06/04/2025 1:40 PM CDT Therapy Visit [facility] [address] [facility] [address] [place] [phone] Mary Trent PA-C [address] [place] [address] [place] [address] [place] [address] 07/01/2025 10:30 AM CDT Virtual Visit [facility] [place] [address] [facility] [address] [place] [phone] Mary Trent PA-C [address] [place] [address] 07/01/2025 11:00 AM CDT Virtual Visit [facility] [place] [address] [facility] [address] [place] [phone] Christina Paz, RD, LD [address] [place], [place] [address] 09/20/2025 10:00 AM FARM EQUIPMENT ENGINEER Office Visit [facility] [place] [address] [place] [address], [address] [place] [phone] Deshawn Veloz MD [address] [place] [address] documented as of this encounter Visit Diagnoses Not on filedocumented in this encounter Additional Health Concerns Infection Onset Date Last Indicated Resolved Time Rule Out COVID-19 01/31/2025 01/31/2025 01/31/2025 1:07 PM CDT COVID-19 01/31/2025 01/31/2025 02/11/2025 11:3 9 PM CDT Assessment Noted Time PHQ-9 Depression Total Score: 10 024 8:44 AM FARM EQUIPMENT ENGINEER documented as of this encounter Care Teams Auto Body Worker Relationship Specialty Start Date End Date Cosme Wayne MD [address] [place] [address] PCP - General Internal Medicine 08/27/22 Cosme Wayne MD [address] [place] [address] Assigned PCP 08/13/21 Deshawn Veloz MD [address] [place] [address] Neurology 09/24/22 Deshawn Veloz MD [address] [place] [address] Assigned Neuroscience Provider 10/13/22 Mindy Harrison MD [address] [place] 6437[address] Nephrology 04/22/23 Karine Rangel [facility] 909 [place] [address] Pharmacist Pharmacist Payroll And Benefits Manager 09/07/24 Karine Rangel [facility] 909 [place], [place] 18[address] Assigned MTM Pharmacist 09/12/24 Mariana Queen MD [address] [place], [place] [address] Assigned Surgical Provider 09/12/24 01/09/25 Devon Hernandez MD [address] [place], [place] [address] Hematology & Oncology 12/23/24 Mary Trent PA-C [address] [place], [place] [address] Physician Carpet Cleaning Technician Bariatric 12/23/24 Cal Zelaya PA-C [address] [place] [address] 9[address] Physician Carpet Cleaning Technician Gastroenterology 12/28/24 Mary Trent PA-C [address] [place], [place] 7977[address] Assigned Surgical Provider 01/10/25 Cal Zelaya PA-C 9 [place] [address] Assigned Gastroenterology Provider 03/12/25 Devon Hernandez MD [address] [place], [place] 49[address] Assigned Cancer Care Provider 05/12/25 documented as of this encounter
--- OUTSIDE RECORDS SUMMARY | 2025-05-22 16:07 | XMS_ITS | Encounter Summary ---
Author Organization [place] Address [address] [facility] [place] [address] Care Team Providers Care Rail Grinder Name Role Phone Cosme Wayne MD Unavailable [phone] Cosme Wayne MD Primary Care Provider + Deshawn Veloz MD Unavailable Deshawn Veloz MD Unavailable Neri Yusuf DPM Unavailable [phone] Mindy Harrison MD Unavailable Mary Trent-C Unavailable [phone] Karine Rangel [facility] Unavailable [phone] Karine Rangel [facility] Unavailable Mariana Queen MD Unavailable [phone] Devon Hernandez MD Unavailable [phone] Mary Trent-C Unavailable [phone] Cal Zelaya PA-C Unavailable [phone] Mary Trent-Baldemar Unavailable [phone] Cal Zelaya-C Unavailable [phone] Devon Hernandez MD Unavailable [phone] Encounter Details Date Type Department Care Team (Late st Contact Info) Description 01/30/[address] [facility] [address] [phone] Cosme Wayne MD [address] [phone] Social History Tobacco Use Types Packs/Day Years [...] PM CDT Legal Sex Male 3:12 AM CALENDER WIND UP TENDER Gender Identity Male 07/22/2021 2:30 PM CDT Sexual Orientation Straight 07/22/2021 2: 30 PM CDT COVID-19 Exposure Response Date Recorded In the last 10 days, have yo u been in contact with someone who was confirmed or suspected to have Coronavirus/COVID-19? No / Unsure 01/29/2023 9:31 AM CDT documented as of this encounter Plan of Treatment Upcoming Encounters Date Type Department Care Team (Late st Contact Info) Description 05/28/2025 1:40 PM CDT Therapy Visit [facility] [address] [facility] [address] [place] [phone] Mayr Trent PA-C [address] [place] [address] [place] [address] [place], [place] [address] 06/04/2025 1:40 PM CDT Therapy Visit [facility] [address] [facility] [address] [place] [phone] Mary Trent PA-C [address] [place], [place] [address] [place] [address] [place], [place] [address] 07/01/2025 10:30 AM CDT Virtual Visit [facility] [place] [address] [facility] [address] [place] [phone] Mary Trent PA-C [address] [facility] [address] [place], [place] [address] 07/01/2025 11:00 AM CDT Virtual Visit [facility] [place] [address] [facility] [address] [place] [address] Christina Paz, RD, [place] [address] [facility] [place] [id number] 09/20/2025 10:00 AM CALENDER WIND UP TENDER Office Visit [facility] Neurology Clin[facility] - [place] [address] [facility], [address] [place] [phone] Deshawn Veloz MD [address] [facility] [place], [place] [address] documented as of this encounter Visit Diagnoses Not on filedocumented in this encounter Additional Health Concerns Infection Onset Date Last Indicated Resolved Time Rule Out COVID-19 01/31/2025 01/31/2025 01/31/2025 1:07 PM CDT COVID-19 01/31/2025 01/31/2025 02/11/2025 11:3 9 PM CDT Assessment Noted Time PHQ-9 Depression Total Score: 3 01/30/20 23 9:35 AM CDT documented as of this encounter Care Teams Rail Grinder Relationship Specialty Start Date End Date Cosme Wayne MD [address] [place] [address] PCP - General Internal Medicine 08/27/22 Cosme Wayne MD [address] [place] [address] Assigned PCP 08/13/21 Deshawn Veloz MD [address] [place] [address] Neurology 09/24/22 Deshawn Veloz MD [address] [place] [address] Assigned Neuroscience Provider 10/13/22 Neri Yusuf DPM [address] [place] [address] Assigned Surgical Provider 11/24/22 03/11/24 [place] [address] [place] [address] Nephrology 04/22/23 Mary Trent PA-C [address] [place] [address] Assigned Surgical Provider 07/13/24 09/11/24 Karine Rangel RPH 9[address] [place] [address] Pharmacist Pharmacist Director Drug 09/07/24 Karine Rangel [facility] [address] [place], [place] 468[address] Assigned MTM Pharmacist 09/12/24 Mariana Queen MD [address] [place], [place] 457[address] Assigned Surgical Provider 09/12/24 01/09/25 Devon Hernandez MD [address] [place], [place] [address] Hematology & Oncology 12/23/24 Mary Trent PA-C [address] [place], [place] [address] Physician Hospitality Ambassador Bariatric 12/23/24 Cal Zelaya PA-C [address] [place] [address] Physician Hospitality Ambassador Gastroenterology 12/28/24 Mary Trent PA-C [address] [place], [place] [address] Assigned Surgical Provider 01/10/25 Cal Zelaya PA-C [address] [place], [place] [address] Assigned Gastroenterology Provider 03/12/25 Devon Hernandez MD [address] [place] [address] Assigned Cancer Care Provider 05/12/25 documented as of this encounter
--- OUTSIDE RECORDS SUMMARY | 2025-05-22 16:07 | XMS_ITS | Encounter Summary ---
Author Organization [place] Address [address] [facility] [place] [address] Care Team Providers Care Compensation Expert Name Role Phone Cosme Wayne MD Unavailable [phone] Cosme Wayne MD Primary Care Provider + Deshawn Veloz MD Unavailable Deshawn Veloz MD Unavailable Mindy Harrison MD Unavailable Karine Rangel [facility] Unavailable [phone] Karine Rangel [facility] Unavailable [phone] Mariana Queen MD Unavailable [phone] Devon Hernandez MD Unavailable [phone] Mary Trent-C Unavailable [phone] Cal Zelaya-C Unavailable Mary Trent-Baldemar Unavailable [phone] Cal Zelaya PA-C Unavailable [phone] Devon Hernandez MD Unavailable [phone] Encounter Details Date Type Department Care Team (Late st Contact Info) Description 09/14/2024 [facility] Neurology [address], [address] [place] [address] Deshawn Veloz MD [address] [place] [address] Social History Tobacco Use Types Packs/Day Years [...] relatives? Three times a week 12/04/2023 Attends Pent[employer] Services Not on file 12/04 Active Member of Clubs or Organizations Not on f ile 12/04/2023 Attends Club or Organization Meetings Not on abad e 12/04/2023 Marital Status Not on file 12/04/2023 PHQ-2 Answer Date Recorded PHQ-2 Score 2 09/14/2024 [employer] [facility] [employer] [facility] - Occupational Stress [...] in an abandoned building, in an overnight correction, or couch-surfing.) Yes 12/04/2023 Are you worried [...] PM CDT Legal Sex Male 3:12 AM COVERING MACHINE TENDER Gender Identity Male 07/22/2021 2:30 PM CDT Sexual Orientation Straight 07/22/2021 2: 30 PM CDT documented as of this encounter Plan of Treatment Upcoming Encounters Date Type Department Care Team (Late st Contact Info) Description 05/28/2025 1:40 PM CDT Therapy Visit [facility] [address] [place] [address] [address] [place] [phone] Mary Trent, PAAllisonC [address] [place] [address] [place] [address] [place], [place] [address] 06/04/2025 1:40 PM CDT Therapy Visit Psychiatric [address] [facility] [address] [place] [phone] Mary Trent PA-C [address] [place] [address] [place] [address] [place], [place] [address] 07/01/2025 10:30 AM CDT Virtual Visit [facility] [place] [address] [facility] [address] [place] [phone] Mary Trent PA-C [address] [place] [address] 07/01/2025 11:00 AM CDT Virtual Visit [facility] [place] [address] [facility] [address] [place] [phone] Crhistina Paz, RD, [place] [address] [place] [address] 09/20/2025 10:00 AM COVERING MACHINE TENDER Office Visit [facility] [place] [address] [facility], [address] [place] [phone] Deshawn Veloz MD [address] [place] [address] documented as of this encounter Visit Diagnoses Not on filedocumented in this encounter Additional Health Concerns Infection Onset Date Last Indicated Resolved Time Rule Out COVID-19 01/31/2025 01/31/2025 01/31/2025 1:07 PM CDT COVID-19 01/31/2025 01/31/2025 02/11/2025 11:3 9 PM CDT Assessment Noted Time PHQ-9 Depression Total Score: 10 2 024 8:44 AM COVERING MACHINE TENDER documented as of this encounter Care Teams Compensation Expert Relationship Specialty Start Date End Date Cosme Wayne MD [address] [place] [address] PCP - General Internal Medicine 08/27/22 Cosme Wayne MD [address] [place] [address] Assigned PCP 08/13/21 Deshawn Veloz MD [address] [place] 889865 Neurology 09/24/22 Deshawn Veloz MD [address] [place] 738185 Assigned Neuroscience Provider 10/13/22 Mindy Harrison MD [address] [place] [id number] Nephrology 04/22/23 Karine Rangel RPH [address] [place] [address] Pharmacist Pharmacist Sales Record Clerk 09/07/24 Karine Rangel [facility] [address] [place] [address] Assigned MTM Pharmacist 09/12/24 Mariana Queen MD [address] [place] [address] Assigned Surgical Provider 09/12/24 01/09/25 Devon Hernandez MD [address] [place] 29[address] Hematology & Oncology 12/23/24 Mary Trent PA-C [address] [place] [address] Physician Flight Mechanic Bariatric 12/23/24 Cal Zelaya PA-C [address] [place], [place] 1633[address] Physician Flight Mechanic Gastroenterology 12/28/24 Mary Trent PA-C [address] [place], [place] [address] Assigned Surgical Provider 01/10/25 Cal Zelaya PA-C [address] [place], [place] 959365 Assigned Gastroenterology Provider 03/12/25 Devon Hernandez MD [address] [place] 6449[address] Assigned Cancer Care Provider 05/12/25 documented as of this encounter
--- OUTSIDE RECORDS SUMMARY | 2025-05-22 16:07 | XMS_ITS | Encounter Summary ---
Author Organization [place] Address [address] [place] [address] Care Team Providers Care Flat Ironer Name Role Phone Cosme Wayne MD Unavailable [phone] Cosme Wayne MD Primary Care Provider + Deshawn Veloz MD Unavailable Deshawn Veloz MD Unavailable Neri Yusuf DPM Unavailable [phone] Mindy Harrison MD Unavailable Mary Trent-C Unavailable [phone] Karine Rangel [facility] Unavailable [phone] Karine Rangel [facility] Unavailable Mariana Queen MD Unavailable [phone] Devon Hernandez MD Unavailable [phone] Mary Trent-C Unavailable [phone] Cal eZlaya PA-C Unavailable [phone] Mary Trent-Baldemar Unavailable [phone] Cal Zelaya-C Unavailable [phone] Devon Hernandez MD Unavailable [phone] Encounter Details Date Type Department Care Team (Late st Contact Info) Description 04/24/2023 MyC Medical Advice [facility] [address] [phone] Cosme Wayne MD [address] [address] Social History Tobacco Use Types Packs/Day Years [...] PM CDT Legal Sex Male 3:12 AM CUSTODIAN BLOOD BANK Gender Identity Male 07/22/2021 2:30 PM CDT Sexual Orientation Straight 07/22/2021 2: 30 PM CDT COVID-19 Exposure Response Date Recorded In the last 10 days, have yo u been in contact with someone who was confirmed or suspected to have Coronavirus/COVID-19? Unable to assess 04/22/2023 4:56 PM CDT documented as of this encounter Miscellaneous Notes * Telephone Encounter - Cosme Wayne MD - 04/29/2023 5:33 PM CDT Please assist patient in making virtual appointment to discuss if he desires. Otherwise, I have addended his pre-op note. documented in this encounter Plan of Treatment Upcoming Encounters Date Type Department Care Team (Late st Contact Info) Description 05/28/2025 1:40 PM CDT Therapy Visit [facility] [address] [facility] [address] [place] [phone] Mary Trent PAAllisonC [address] [facility] [address] [place], [place] [address] [place] [address] [place] [address] 06/04/2025 1:40 PM CDT Therapy Visit [facility] [address] [facility] [address] [place] [phone] Mary Trent PA-C [address] [place] [address] [place] [address] [place] [address] 07/01/2025 10:30 AM CDT Virtual Visit [facility] [place] [address] [facility] [address] [place] [phone] Mary Trent PA-C [address] [facility] [address] [place] [address] 07/01/2025 11:00 AM CDT Virtual Visit [facility] [place] [address] [facility] [address] [place] [phone] Christina Paz, RD, [place] [address] [facility] [place] [address] 09/20/2025 10:00 AM CUSTODIAN BLOOD BANK Office Visit [facility] [place] [address] [facility], [address] [place] [phone] Deshawn Veloz MD [address] [facility] [place] [address] documented as of this encounter Visit Diagnoses Not on filedocumented in this encounter Additional Health Concerns Infection Onset Date Last Indicated Resolved Time Rule Out COVID-19 01/31/2025 01/31/2025 01/31/2025 1:07 PM CDT COVID-19 01/31/2025 01/31/2025 02/11/2025 11:3 9 PM CDT Assessment Noted Time PHQ-9 Depression Total Score: 3 01/30/20 23 9:35 AM CDT documented as of this encounter Care Teams Flat Ironer Relationship Specialty Start Date End Date Cosme Wanye MD [address] [place] [address] PCP - General Internal Medicine 08/27/22 Cosme Wayne MD [address] [place] [address] Assigned PCP 08/13/21 Deshawn Veloz MD [address] [place] [address] Neurology 09/24/22 Deshawn Veloz MD [address] [place] [address] Assigned Neuroscience Provider 10/13/22 Neri Yusuf DPM [address] [place] [address] Assigned Surgical Provider 11/24/22 03/11/24 [place] [address] [address] [place] [address] Nephrology 04/22/23 Mary Trent, PA-C [address] [place] [address] Assigned Surgical Provider 07/13/24 09/11/24 Karine Rangel [facility] 909 [place] [address] Pharmacist Pharmacist Custodial Services Manager 09/07/24 Karine Rangel [facility] 9 [place], [place] [address] Assigned MTM Pharmacist 09/12/24 Mariaan Queen MD [address] [place] [address] Assigned Surgical Provider 09/12/24 01/09/25 Devon Hernandez MD [address] [place] [address] Hematology & Oncology 12/23/24 Mary Trent PA-C [address] [place] [address] Physician Clinical Information Systems Director Bariatric 12/23/24 Cal Zelaya PA-C 909 [place] [address] Physician Clinical Information Systems Director Gastroenterology 12/28/24 Mary Trent PA-C [address] [place] [address] Assigned Surgical Provider 01/10/25 Cal Zelaya PA-C 909 [place] [address] Assigned Gastroenterology Provider 03/12/25 Devon Hernandez MD [address] [address] Assigned Cancer Care Provider 05/12/25 documented as of this encounter
--- OUTSIDE RECORDS SUMMARY | 2025-05-22 16:07 | XMS_ITS | Encounter Summary ---
Author Organization [place] Address [address] [facility] [place] [address] Care Team Providers Care Senior Underwriter Name Role Phone Cosme Wayne MD Unavailable [phone] Cosme Wayne MD Primary Care Provider + Neri Yusuf DPM Unavailable [phone] Deshawn Veloz MD Unavailable Deshawn Veloz MD Unavailable ParamjitNeri kuo DPM Unavailable [phone] Mindy Harrison MD Unavailable Mary Trent-C Unavailable [phone] Karine Rangel [facility] Unavailable [phone] Karine Rangel [facility] Unavailable [phone] Mariana Queen MD Unavailable [phone] Devon Hernandez MD Unavailable [phone] Mary Trent-C Unavailable [phone] Cal Zelaya-C Unavailable [phone] Mary Trent-C Unavailable [phone] Cal Zelaya-C Unavailable [phone] Devon Hernandez MD Unavailable [phone] Encounter Details Date Type Department Care Team (Late st Contact Info) Description 10/08/2022 MyC Medical Advice [facility] Neurology Clinics - [address], [address] [place] [address] Jeni Hemphill Social History Tobacco Use Types [...] CDT Legal Sex Male 3:12 AM HEALTH PROGRAM ANALYST Gender Identity Male 07/22/2021 2:30 PM CDT Sexual Orientation Straight 07/22/2021 2: 30 PM CDT COVID-19 Exposure Response Date Recorded In the last 10 days, have yo u been in contact with someone who was confirmed or suspected to have Coronavirus/COVID-19? No / Unsure 10/09/2022 2:47 PM HEALTH PROGRAM ANALYST documented as of this encounter Plan of Treatment Upcoming Encounters Date Type Department Care Team (Late st Contact Info) Description 05/28/2025 1:40 PM CDT Therapy Visit [facility] [address] [facility] 300 [place] [phone] Mary Trent PA-C [address] [place] [address] [place] [address] [facility] [address] [place], [place] [address] 06/04/2025 1:40 PM CDT Therapy Visit [facility] [address] [facility] [address] [place] [phone] Mary Trent PA-C [address] [place] [address] [place] [address] [place], [place] [address] 07/01/2025 10:30 AM CDT Virtual Visit [facility] [place] [address] [facility] [address] [place] [phone] Mary Trent, PA-C [address] [place] [address] 07/01/2025 11:00 AM CDT Virtual Visit [facility] [place] [address] [facility] [address] [place] [phone] Christina Paz, RD, [place] [address] [place] [address] 09/20/2025 10:00 AM HEALTH PROGRAM ANALYST Office Visit [facility] Neurology Clinics - [place] [address] [facility], [address] [place] [phone] Deshawn Veloz MD [address] [facility] [place] [address] documented as of this encounter Visit Diagnoses Not on filedocumented in this encounter Additional Health Concerns Infection Onset Date Last Indicated Resolved Time Rule Out COVID-19 01/31/2025 01/31/2025 01/31/2025 1:07 PM CDT COVID-19 01/31/2025 01/31/2025 02/11/2025 11:3 9 PM CDT Assessment Noted Time PHQ-9 Depression Total Score: 3 07/16/20 22 10:34 AM CDT documented as of this encounter Care Teams Senior Underwriter Relationship Specialty Start Date End Date Cosme Wayne MD [address] [place] [address], [place] [address] PCP - General Internal Medicine 08/27/22 Cosme Wayne MD [address] [place] [address], [place] [address] Assigned PCP 08/13/21 Neri Yusuf DPM [address] [place] [address] Assigned Musculoskeletal Provider 09/15/22 11/23/22 Deshawn Veloz MD [address] [place] [address] Neurology 09/24/22 Deshawn Veloz MD [address] [place] [address] Assigned Neuroscience Provider 10/13/22 Neri Yusuf DPM [address] [place] [address] Assigned Surgical Provider 11/24/22 03/11/24 [place] [address] [place] [address] Nephrology 04/22/23 Mary Trent, PA-C [address] [place] [address] Assigned Surgical Provider 07/13/24 09/11/24 Karine Rangel [facility] 909 [place] [address] Pharmacist Pharmacist Weaving Inspector 09/07/24 Karine Rangel [facility] 909 [place] [address] Assigned MTM Pharmacist 09/12/24 Mariana Queen MD [address] [place], [place] [address] Assigned Surgical Provider 09/12/24 01/09/25 Devon Hernandez MD [address] [place], [place] [address] Hematology & Oncology 12/23/24 Mary Trent PA-C [address] [place] [address] Physician Blending Tank Helper Bariatric 12/23/24 Cal Zelaya PA-C 9 [place], [place] [address] Physician Blending Tank Helper Gastroenterology 12/28/24 Mary Trent PA-C [address] [place], [place] [address] Assigned Surgical Provider 01/10/25 Cal Zelaya PA-C [address] [place], [place] [address] Assigned Gastroenterology Provider 03/12/25 Devon Hernandez MD [address] [place] [place] [address] [place] [address] Assigned Cancer Care Provider 05/12/25 documented as of this encounter
--- OUTSIDE RECORDS SUMMARY | 2025-05-22 16:08 | XMS_ITS | Encounter Summary ---
Author Organization [place] Address [facility] [place] [address] Care Team Providers Care Professor Of German Name Role Phone López Franks MD Primary Car e Provider Augustin Vail MD Primary Care Provider [phone] [facility] Primary Care Provider + Cosme Wayne MD Unavailable [phone] Cosme Wayne MD Primary Care Provider + Neri Yusuf DPM Unavailable [phone] Deshawn Veloz MD Unavailable Deshawn Veloz MD Unavailable Neri Yusuf DPM Unavailable [phone] Mindy Harrison MD Unavailable Mary TrentC Unavailable [phone] Karine Rangel [facility] Unavailable [phone] Karine Ranegl RP Unavailable [phone] Mariana Queen MD Unavailable [phone] Devon Hernandez MD Unavailable [phone] Mary TrentC Unavailable [phone] Cal Zelaya-C Unavailable Mary Trent PA-C Unavailable [phone] Cal Zelaya PA-C Unavailable Devon Hernandez MD Unavailable [phone] Encounter Details Date Type Department Care Team (Late st Contact Info) Description 11/05/2012 Abstract M [facility] [place] [address] [place] [phone] Jana Kamara PA-C [address] [place] [address] Social History Tobacco Use Types Packs/Day Years Used Date Smoking Tobacco: Former Cigarettes 0.5 17 0 10/21/1982 - 10/21/1999 Alcohol Use Standard Drinks/Week Comments Yes 1.7 (1 standard drink = 0.6 oz p ure alcohol) occ Sex and Gender Information Value Date Recorded Sex Assigned at Male 07/22/2021 2:30 PM CDT Legal Sex Male 3:12 AM ALLERGY NURSE Gender Identity Male 07/22/2021 2:30 PM CDT Sexual Orientation Straight 07/22/2021 2: 30 PM CDT documented as of this encounter Plan of Treatment Upcoming Encounters Date Type Department Care Team (Late st Contact Info) Description 05/28/2025 1:40 PM CDT Therapy Visit [facility] [address] [place] [address] [place] [phone] Mary Trent PA-C [address] [place] [address] [place] [address] [place], [place] [address] 06/04/2025 1:40 PM CDT Therapy Visit [facility] [address] [facility] [address] [place] [phone] Mary Trent PA-C [address] [place], [place] [address] [place] [address] [place], [place] [address] 07/01/2025 10:30 AM CDT Virtual Visit [facility] [place] [address] [facility] [address] [place] [phone] Mary Trent PA-C [address] [place], [place] [address] 07/01/2025 11:00 AM CDT Virtual Visit [facility] [place] [address] [facility] [address] [place] [phone] Christina Paz, RD, [place] [address] [place], [place] [address] 09/20/2025 10:00 AM ALLERGY NURSE Office Visit [facility] [place] [address] [facility], [address] [place] [address] Deshawn Veloz MD [address] [place] [address] documented as of this encounter Visit Diagnoses Not on filedocumented in this encounter Additional Health Concerns Infection Onset Date Last Indicated Resolved Time Rule Out COVID-19 01/02/2021 01/02/2021 01/02/2021 3:35 PM CDT Rule Out COVID-19 10/12/2021 10/12/2021 10/13/2021 1:19 PM ALLERGY NURSE Rule Out COVID-19 01/18/2022 01/18/2022 01/18/2022 10:51 PM CDT Rule Out COVID-19 01/31/2025 01/31/2025 01/31/2025 1:07 PM CDT COVID-19 01/31/2025 01/31/2025 02/11/2025 11:3 9 PM CDT documented as of this encounter Care Teams Professor Of German Relationship Specialty Start Date End Date López Franks MD PCP - General 08/31/09 02/16/16 Augustin Vail MD [facility] [address] [place] [phone] PCP - General Family Practice 02/17/16 12/13/19 [facility] PCP - General Family Practice 12/14/19 08/26/22 Cosme Wayne MD [address] [place] [address] PCP - General Internal Medicine 08/27/22 Cosme Wayne MD [address] [place] [address] Assigned PCP 08/13/21 Neri Yusuf DPM [address] [facility] [address] [place] [address] Assigned Musculoskeletal Provider 09/15/22 11/23/22 Deshawn Veloz MD [address] [place] [address] Neurology 09/24/22 Deshawn Veloz MD [address] [place] [address] Assigned Neuroscience Provider 10/13/22 Neri Yusuf DPM [address] [place] [address] Assigned Surgical Provider 11/24/22 03/11/24 [place] [address] [place], [place] [address] Nephrology 04/22/23 Mary Trent PA-C [address] [place] [address] Assigned Surgical Provider 07/13/24 09/11/24 [facility] 909 [place], [place] [address] Pharmacist Pharmacist Urban Forester 09/07/24 [facility] 909 [place] [address] Assigned MTM Pharmacist 09/12/24 Mariana Queen MD [address] [place], [place] [address] Assigned Surgical Provider 09/12/24 01/09/25 Devon Hernandez MD [address] [place] [address] Hematology & Oncology 12/23/24 Mary Trent PA-C [address] [place], [place] [address] Physician Citrix Systems Administrator Bariatric 12/23/24 Cal Zelaya PA-C [address] [place] [address]44385 Physician Citrix Systems Administrator Gastroenterology 12/28/24 Mary Trent PA-C [address] [place], [place] [address] Assigned Surgical Provider 01/10/25 Cal Zelaya PA-C [address] [place] [address] Assigned Gastroenterology Provider 03/12/25 Devon Hernandez MD [address] [place], [place] [address] Assigned Cancer Care Provider 05/12/25 documented as of this encounter
--- OUTSIDE RECORDS SUMMARY | 2025-05-22 16:08 | XMS_ITS | Encounter Summary ---
Author Organization [place] Address [facility]ly [facility], [facility] [place] [address] Care Team Providers Care Health And Safety Tech Name Role Phone López Franks MD Primary Car e Provider Augustin Vail MD Primary Care Provider [phone] [facility] Primary Care Provider + Cosme Wayne MD Unavailable [phone] Cosme Wayne MD Primary Care Provider + Neri Yusuf DPM Unavailable [phone] Deshawn Veloz MD Unavailable Deshawn Veloz MD Unavailable Neri Yusuf DPM Unavailable [phone] Mindy Harrison MD Unavailable Mary TrentC Unavailable [phone] Karine Rangel [facility] Unavailable [phone] Karine Rangel RP Unavailable [phone] Mariana Queen MD Unavailable [phone] Devon Hernnadez MD Unavailable [phone] Mary TrentC Unavailable [phone] Cal Zelaya-C Unavailable Mary Trent PA-C Unavailable [phone] Cal Zelaya PA-C Unavailable Devon Hernandez MD Unavailable [phone] Encounter Details Date Type Department Care Team (Late st Contact Info) Description 03/12/2011 MyC Medical Advice [address] [phone] Tereza Ramirez, CAITLIN Social History Tobacco Use Types Packs/Day Years Used Date Smoking Tobacco: Former Cigarettes 0.5 17 0 10/21/1982 - 10/21/1999 Alcohol Use Standard Drinks/Week Comments Yes 1.7 (1 standard drink = 0.6 oz p ure alcohol) occ Sex and Gender Information Value Date Recorded Sex Assigned at Male 07/22/2021 2:30 PM CDT Legal Sex Male 3:12 AM HARVESTING SUPERVISOR Gender Identity Male 07/22/2021 2:30 PM CDT Sexual Orientation Straight 07/22/2021 2: 30 PM CDT documented as of this encounter Plan of Treatment Upcoming Encounters Date Type Department Care Team (Late st Contact Info) Description 05/28/2025 1:40 PM CDT Therapy Visit [facility] [address] [place] [address] [place] [address] [phone] Mary Trent PA-C [address] [place] [address] [place] [address] [place], [place] [address] 06/04/2025 1:40 PM CDT Therapy Visit [place] [id number] [facility] [address] [place] [address] [phone] Mary Trent PA-C [address] [place] [address] [id number] [place] [address] [place], [place] [address] 07/01/2025 10:30 AM CDT Virtual Visit [facility] [place] [address] [facility] [address] [place] [phone] Mary Trent PA-C [address] [place], [place] [address] 07/01/2025 11:00 AM CDT Virtual Visit [facility] [place] [facility] [address] [facility] [address] [place] [phone] Christina Paz, RD, LD [address] [place] [address] 09/20/2025 10:00 AM HARVESTING SUPERVISOR Office Visit [facility] [place] [facility] [address] [facility], [address] [place] [phone] Deshawn Veloz MD [address] [place] [address] documented as of this encounter Visit Diagnoses Not on filedocumented in this encounter Additional Health Concerns Infection Onset Date Last Indicated Resolved Time Rule Out COVID-19 01/02/2021 01/02/2021 01/02/2021 3:35 PM CDT Rule Out COVID-19 10/12/2021 10/12/2021 10/13/2021 1:19 PM HARVESTING SUPERVISOR Rule Out COVID-19 01/18/2022 01/18/2022 01/18/2022 10:51 PM CDT Rule Out COVID-19 01/31/2025 01/31/2025 01/31/2025 1:07 PM CDT COVID-19 01/31/2025 01/31/2025 02/11/2025 11:3 9 PM CDT documented as of this encounter Care Teams Health And Safety Tech Relationship Specialty Start Date End Date López Franks MD PCP - General 08/31/09 02/16/16 Augustin Vail MD [facility] [address] [place] [address]6247[address] PCP - General Family Practice 02/17/16 12/13/19 [facility] PCP - General Family Practice 12/14/19 08/26/22 Cosme Wayne MD [address] [place] [address] PCP - General Internal Medicine 08/27/22 Cosme Wayne MD [address] [place] [address] Assigned PCP 08/13/21 Neri Yusuf DPM [address] [facility] [address] [place] [address] Assigned Musculoskeletal Provider 09/15/22 11/23/22 Deshawn Veloz MD [address] [place] [id number] Neurology 09/24/22 Deshawn Veloz MD [address] [place] [address] Assigned Neuroscience Provider 10/13/22 Neri Yusuf DPM [address] [facility] [address] [place] [address] Assigned Surgical Provider 11/24/22 03/11/24 [place] [address] [place] [address] Nephrology 04/22/23 Mary Trent PA-C [address] [place] [id number] Assigned Surgical Provider 07/13/24 09/11/24 [facility] [place] [address] Pharmacist Pharmacist Button Pusher 09/07/24 [facility] 9 [place] [address] Assigned MTM Pharmacist 09/12/24 Mariana Queen MD [address] [place], [place] [address] Assigned Surgical Provider 09/12/24 01/09/25 Devon Hernandez MD [address] [place] [address] Hematology & Oncology 12/23/24 Mary Trent PA-C [address] [place] [address] Physician Ingot Caster Bariatric 12/23/24 Cal Zelaya PA-C [address] [place] [address] Physician Ingot Caster Gastroenterology 12/28/24 Mary Trent PA-C [address] [place] [address] Assigned Surgical Provider 01/10/25 Cal Zelaya PA-C [address] [place] [address] Assigned Gastroenterology Provider 03/12/25 Devon Hernandez MD [address] [place] 1460[address] Assigned Cancer Care Provider 05/12/25 documented as of this encounter
--- OUTSIDE RECORDS SUMMARY | 2025-05-22 16:08 | XMS_ITS | Clinical Summary ---
Author Organization [facility] Address [address] [place] [address] Phone Care Team Providers Care Director Industrial Museum Name Role Phone Cosme Wayne MD Primary Care Provider U navailable Allergies Active Allergy Reactions Criticality Noted Date Comments Amlodipine Swelling 07/26/2022 Lisinopril Anaphylaxis High 07/30/2021 unable to breath-gasping for breath-Numbness in face- unable to breath-gasping for breath-Numbness in face- Medications amLODIPine (NORVASC) 5 MG tabletIndication s:Essential (primary) hypertension Take 1 tablet (5 mg total) by mouth in the morning and 1 tablet (5 mg total) in the evening. 60 tablet 1 3 Active carvedilol (Coreg) 3.125 MG tabletIndication s:Essential (primary) hypertension Take 4 tablets (12.5 mg total) by mouth in the morning and 4 tablets (12.5 mg total) in the evening. Take with meals. 480 tablet 3 Active chlorthalidone 25 MG tabletIndication s:Essential (primary) hypertension Take 1 tablet (25 mg total) by mouth 1 (one) time each day 30 tablet 1 3 Active cloNIDine (CATAPRES) 0.1 MG tabletIndication s:Essential (primary) hypertension Take 2 tablets (0.2 mg total) by mouth in the morning and 2 tablets (0.2 mg total) in the evening. 120 tablet 1 3 Active hydrALAZINE 25 MG tabletIndication s:Essential (primary) hypertension Take 1 tablet (25 mg total) by mouth in the morning and 1 tablet (25 mg total) in the evening and 1 tablet (25 mg total) before bedtime. 180 tablet 3 Active amphetamine-dext roamphetamine (ADDERALL) 15 MG tablet Take 1 tablet by mouth if needed 3 Active busPIRone (BUSPAR) 30 MG tablet Take 30 mg by mouth in the morning and 30 mg in the evening. 3 Active Antacid Calcium 500 MG chewable tablet Chew 1 tablet 2 (two) times a day with meals (breakfast and dinner) 3 Active ergocalciferol 1.25 MG (78497 UT) capsule Take 1 capsule by mouth 1 (one) time per week 3 Active folic acid (FOLVITE) 1 MG tablet Take 2 tablets by mouth 1 (one) time each day 3 Active hydrOXYzine (VISTARIL) 25 MG capsule Take 1 capsule by mouth every 6 (six) hours if needed for pain 3 Active Narcan 4 MG/0.1ML liquid 1 spray by Nasogastric route if needed 3 Active QUEtiapine (SEROquel) 100 MG tablet Take 100 mg by mouth at bed time 3 Active rOPINIRole (REQUIP) 3 MG tablet Take 3 mg by mouth at bed time 3 Active tiZANidine (ZANAFLEX) 2 MG tablet Take 2-6 mg by mouth every 6 (six) hours if needed 3 Active zolpidem (AMBIEN) 10 MG tablet Take 10 mg by mouth at night if needed 3 Active senna (SENOKOT) 8.6 MG tablet Take 1-2 tablets by mouth 2 (two) times a day if needed for constipation 3 Active HYDROmorphone (DILAUDID) 2 MG tablet Take 2 mg by mouth every 6 (six) hours if needed for pain 3 Active gabapentin (NEURONTIN) 300 MG capsule Take 2 capsules by mouth in the morning and 2 capsules at noon and 2 capsules in the evening. 3 Active ferrous sulfate 325 (65 Fe) MG tablet Take 1 tablet by mouth 1 (one) time each day 3 Active Active Problems Problem Noted Date Diagnosed Date Essential hypertension 06/27/2023 Vitamin D deficiency 08/13/2017 08/06/2023 Immunizations Immunization Administration Dates Next Due Influenza, Unspecified 07/02/2022 Pfizer SARS-COV-2 11/16/2021,02/09/2021,01/20/20 21 Family History Medical History Relation Comments No Known Problems Brother Cancer Father Diabetes Mother Relation Status Comments Brother Alive Father Father's Brother Maternal Grandfather Maternal Grandmother Mother Mother's Brother Mother's Sister Paternal Grandfather Paternal Grandmother Social History Tobacco Use Types Packs/Day Years Used Date Smoking Tobacco: Former Cigarettes Smokeless Tobacco: Never Tobacco Cessation:Counseling Given: Not Answered Alcohol Use Standard Drinks/Week Comments Yes 2 (1 standard drink = 0.6 oz pur e alcohol) Sex and Gender Information Value Date Recorded Sex Assigned at Not on file Legal Sex Male 5:19 PM EDT Gender Identity Not on file Sexual Orientation Not on file Plan of Treatment Health Maintenance Due Date Last Done Comments Hepatitis B Vaccine (1 of 3 - 19+ 3-dose series) 1987 Pneumococcal Vaccine: 50+ Ye ars (1 of 2 - PCV) 1987 Colorectal Cancer Screening: Annual FOBT 2017 Colorectal Cancer Screening: Colonoscopy 2017 Colorectal Cancer Screening: Sigmoidoscopy 2017 Influenza Vaccine (#1) 2025 3, 07/02/2022, 07/27/2021, Additional history exists Insurance Care Teams Director Industrial Museum Relationship Specialty Start Date End Date Cosme Wayne MD PCP - General Internal Medicine 05/06/23
--- OUTSIDE RECORDS SUMMARY | 2025-05-22 16:08 | XMS_ITS | Encounter Summary ---
Author Organization [place] Address [facility] [place] [address] Care Team Providers Care Meter Readers Supervisor Name Role Phone Cosme Wayne MD Unavailable [phone] Cosme Wayne MD Primary Care Provider + Deshawn Veloz MD Unavailable Deshawn Veloz MD Unavailable Mindy Harrison MD Unavailable Karine Rangel [facility] Unavailable [phone] Karine Rangel [place] Unavailable [phone] Devon Hernandez MD Unavailable [phone] Mary Trent PA-C Unavailable [phone] Cal Zelaya PA-C Unavailable [phone] Mary Trent PA-C Unavailable [phone] Cal Zelaya PA-C Unavailable [phone] Encounter Details Date Type Department Care Team (Late st Contact Info) Description 03/07/2025 Results Follow-Up [facility] [address] [address] Cal Zelaya PA-C [address] [place] [address] Subj: Message about your results Social [...] relatives? Three times a week 12/04/2023 Attends Sabianism Services Not on file 12/04 Active Member of Clubs or Organizations Not on f ile 12/04/2023 Attends Club or Organization Meetings Not on abad e 12/04/2023 Marital Status Not on file 12/04/2023 PHQ-2 Answer Date Recorded PHQ-2 Score 2 02/11/2025 [facility] [place] of Occupat ional Health - Occupational Stress [...] in an overnight retirement, or couch-surfing.) Yes 11/29/2024 Are you worried [...] PM CDT Legal Sex Male 3:12 AM CONTROL ROOM SUPERVISOR Gender Identity Male 07/22/2021 2:30 PM CDT Sexual Orientation Straight 07/22/2021 2: 30 PM CDT documented as of this encounter Plan of Treatment Upcoming Encounters Date Type Department Care Team (Late st Contact Info) Description 05/28/2025 1:40 PM CDT Therapy Visit [address] [phone] Mary Trent PA-C [address] [place] [address] [place] [address] [place] [address] [facility] [address] [place], [place] [address] 06/04/2025 1:40 PM CDT Therapy Visit [facility] [address] [phone] Mary Trent PA-C [address] [place] [address] [place] [address] [place] [address] 07/01/2025 10:30 AM CDT Virtual Visit [facility] [place] [address] [facility] [address] [place] [phone] Mary Trent PAAllisonC [address] [facility] [address] [place] [id number] 07/01/2025 11:00 AM CDT Virtual Visit [facility] [place] [address] [facility] [address] [place] [phone] Christina Paz, RD, LD [address] [place] [address] 09/20/2025 10:00 AM CONTROL ROOM SUPERVISOR Office Visit [facility] [place] [address] [facility], [address] [place] [phone] Deshawn Veloz MD [address] [facility] [address] [place] [address] documented as of this encounter Visit Diagnoses Not on filedocumented in this encounter Additional Health Concerns Assessment Noted Time PHQ-9 Depression Total Score: 8 02/12/20 25 8:47 AM CDT documented as of this encounter Care Teams Meter Readers Supervisor Relationship Specialty Start Date End Date Cosme Wayne MD [address] [place] [address] PCP - General Internal Medicine 08/27/22 Cosme Wayne MD [address] [place] [address] Assigned PCP 08/13/21 Deshawn Veloz MD [address] [place] [address] Neurology 09/24/22 Deshawn Veloz MD [address] [place] [address] Assigned Neuroscience Provider 10/13/22 Mindy Harrison MD [address] [place] [address] Nephrology 04/22/23 [facility] [address] [place] [address] Pharmacist Pharmacist Car Body Designer 09/07/24 [facility] [address] [place] [address] Assigned MTM Pharmacist 09/12/24 Devon Hernandez MD [address] [place] [address] Hematology & Oncology 12/23/24 Mary Trent PA-C [address] [place] [address] Physician Nutrition Services Worker Bariatric 12/23/24 Cal Zelaya PA-C [address] [place] [address] Physician Nutrition Services Worker Gastroenterology 12/28/24 aMry Trent PA-C [address] [facility] [address] [place] [address] Assigned Surgical Provider 01/10/25 Cal Zelaya PA-C [address] [place] [address] Assigned Gastroenterology Provider 03/12/25 documented as of this encounter
--- OUTSIDE RECORDS SUMMARY | 2025-05-22 16:08 | XMS_ITS | Encounter Summary ---
Author Organization [place] Address [address] [facility] [place] [address] Care Team Providers Care Component Engineer Name Role Phone Cosme Wayne MD Unavailable [phone] Cosme Wayne MD Primary Care Provider + Deshawn Veloz MD Unavailable Deshawn Veloz MD Unavailable Mindy Harrison MD Unavailable Karine Rangel [facility] Unavailable [phone] Karine Rangel [place] Unavailable [phone] Devon Hernandez MD Unavailable [phone] Mary Trent-C Unavailable [phone] Cal Zelaya-Baldemar Unavailable Mary Trnet-Baldemar Unavailable [phone] Cal Zelaya-Baldemar Unavailable Encounter Details Date Type Department Care Team (Late st Contact Info) Description 04/16/2025 Documentation Only [facility] - Cancer Care Service Line [address] [place] [address] Devon Hernandez MD [address] [facility] [address] [address] Social History Tobacco Use Types Packs/Day Years [...] relatives? Three times a week 12/04/2023 Attends Spiritism Services Not on file 12/04 Active Member of Clubs or Organizations Not on f ile 12/04/2023 Attends Club or Organization Meetings Not on abad e 12/04/2023 Marital Status Not on file 12/04/2023 PHQ-2 Answer Date Recorded PHQ-2 Score 2 02/11/2025 [facility] - Occupational Stress Questionnaire Answer Date Recorded [...] in an abandoned building, in an overnight residential, or couch-surfing.) Yes 11/29/2024 Are you worried [...] PM CDT Legal Sex Male 3:12 AM TEAM LEADER Gender Identity Male 07/22/2021 2:30 PM CDT Sexual Orientation Straight 07/22/2021 2: 30 PM CDT documented as of this encounter Progress Notes * Devon Hernandez MD - 04/16/2025 10:41 AM CDT Labs done on 04/14/2025 reviewed. Anemia is better with hemoglobin of 12.4. Normal WBC, platelet and MCV. Normal iron ferritin. Normal haptoglobin and LDH. Peripheral smear does not reveal any abnormal blood cells. As his anemia has improved, I would simply recommend monitoring at this time. Patient will follow-up with PCP and have CBC checked at least once a year. If there is worsening of anemia, he can returnto hematology/oncology clinic. documented in this encounter Plan of Treatment Upcoming Encounters Date Type Department Care Team (Late st Contact Info) Description 05/28/2025 1:40 PM CDT Therapy Visit [facility] [address] [phone] Mary Trent PA-C [address] [place] [address] [place] [address] [place] [address] 06/04/2025 1:40 PM CDT Therapy Visit [facility] [address] [facility] [address] [place] [phone] Mary Trent PA-C [address] [place] 4[address] [place] [address] [place] [address] 07/01/2025 10:30 AM CDT Virtual Visit [facility] [place] [address] [facility] [address] [place] [phone] Mary Trent PA-C [address] [place] [address] 07/01/2025 11:00 AM CDT Virtual Visit [facility] [place] [address] [facility] [address] [place] [phone] Christina Paz, RD, LD [address] [place] [address] 09/20/2025 10:00 AM TEAM LEADER Office Visit [facility] [place] [address] [place] [address], [address] [place] [phone] Deshawn Veloz MD [address] [facility] [address] [place] [address] documented as of this encounter Visit Diagnoses Not on filedocumented in this encounter Additional Health Concerns Assessment Noted Time PHQ-9 Depression Total Score: 8 02/12/20 25 8:47 AM CDT documented as of this encounter Care Teams Component Engineer Relationship Specialty Start Date End Date Cosme Wayne MD [address] [place] [address] PCP - General Internal Medicine 08/27/22 Cosme Wayne MD [address] [place] [address] Assigned PCP 08/13/21 Deshawn Veloz MD [address] [place] 2440[address] Neurology 09/24/22 Deshawn Veloz MD [address] [place] 2427[address] Assigned Neuroscience Provider 10/13/22 Mindy Harrison MD [address] [place] [place] [address] Nephrology 04/22/23 Karine Rangel RPH [address] [place] [address] Pharmacist Pharmacist Cooler Tender 09/07/24 Karine Rangel RPH [address] [place] [address] Assigned MTM Pharmacist 09/12/24 Devon Hernandez MD [address] [place] [address] Hematology & Oncology 12/23/24 Mary Trent PA-C [address] [place] [address] Physician Salon Receptionist Bariatric 12/23/24 Cal Zelaya PA-C [address] [place], [place] [address] Physician Salon Receptionist Gastroenterology 12/28/24 Mary Trent PA-C [address] [place] [address] Assigned Surgical Provider 01/10/25 Cal Zelaya PA-C [address] [place], [place] [id number] Assigned Gastroenterology Provider 03/12/25 documented as of this encounter
--- OUTSIDE RECORDS SUMMARY | 2025-05-22 16:08 | XMS_ITS | Encounter Summary ---
Author Organization [place] Address [address] [facility] [place] [address] Care Team Providers Care Elementary Substitute Teacher Name Role Phone Cosme Wayne MD Unavailable [phone] Cosme Wayne MD Primary Care Provider + Deshawn Veloz MD Unavailable Deshawn Veloz MD Unavailable Mindy Harrison MD Unavailable Karine Rangel [facility] Unavailable [phone] Karine Rangel [place] Unavailable [phone] Devon Hernandez MD Unavailable [phone] Mary Trent PA-C Unavailable [phone] Cal Zelaya PA-C Unavailable [phone] Mary Trent PA-C Unavailable [phone] Cal Zelaya PA-C Unavailable [phone] Encounter Details Date Type Department Care Team (Latest Contact Info) Description 04/14/2025 Travel Social History Tobacco Use Types Packs/Day [...] relatives? Three times a week 12/04/2023 Attends Zoroastrianism Services Not on file 12/04 Active Member of Clubs or Organizations Not on f ile 12/04/2023 Attends Club or Organization Meetings Not on abad e 12/04/2023 Marital Status Not on file 12/04/2023 PHQ-2 Answer Date Recorded PHQ-2 Score 2 02/11/2025 [facility] - Occupational Stress Questionnaire [...] in an abandoned building, in an overnight fpc, or couch-surfing.) Yes 11/29/2024 Are you worried [...] PM CDT Legal Sex Male 3:12 AM HARMONICA MAKER Gender Identity Male 07/22/2021 2:30 PM CDT Sexual Orientation Straight 07/22/2021 2: 30 PM CDT documented as of this encounter Plan of Treatment Upcoming Encounters Date Type Department Care Team (Late st Contact Info) Description 05/28/2025 1:40 PM CDT Therapy Visit [address] [place] [phone] Mary Trent, PAAllisonC [address] [place] [address] [place] [address] [place] [address] 06/04/2025 1:40 PM CDT Therapy Visit [address] [employer] [address] [place] [phone] Mary Trent PA-C [address] [place] [address] [place] [address] [place] [address] 07/01/2025 10:30 AM CDT Virtual Visit [facility] [address] [facility] [address] [place] [phone] Mary Trent PA-C [address] [place], [place] [address] 07/01/2025 11:00 AM CDT Virtual Visit [facility] [place] [address] [facility] [address] [place] [phone] Christina Paz, RD, LD [address] [place], [place] [address] 09/20/2025 10:00 AM HARMONICA MAKER Office Visit [facility] [address] [facility], [address] [place] [phone] Deshawn Veloz MD [address] [place], [place] 2738[address] documented as of this encounter Visit Diagnoses Not on filedocumented in this encounter Additional Health Concerns Assessment Noted Time PHQ-9 Depression Total Score: 8 02/12/20 25 8:47 AM CDT documented as of this encounter Care Teams Elementary Substitute Teacher Relationship Specialty Start Date End Date Cosme Wayne MD [address] [place] [address] PCP - General Internal Medicine 08/27/22 Cosme Wayne MD [address] [place] [address] Assigned PCP 08/13/21 Deshawn Veloz MD [address] [place], [place] 0665[address] Neurology 09/24/22 Deshawn Veloz MD [address] [place] [id number] Assigned Neuroscience Provider 10/13/22 Mindy Harrison MD [address] 620525 Nephrology 04/22/23 Karine Rangel RPH [address] [place] [address] [phone] Pharmacist Pharmacist Reeling Machine Operator 09/07/24 Karine Rangel RPH [address] [place] [address] [id number] Assigned [place] Pharmacist 09/12/24 Devon Hernandez MD [address]FA [facility] [place] [id number] Hematology & Oncology 12/23/24 Mary Trent PA-C [address] [place] [id number] Physician Bag Tester Bariatric 12/23/24 Cal Zelaya PA-C [address] [place] [address] 334055 Physician Bag Tester Gastroenterology 12/28/24 Mary Trent PA-C [address] [place] [id number] Assigned Surgical Provider 01/10/25 Cal Zelaya PA-C 9 [place] [address] Assigned Gastroenterology Provider 03/12/25 documented as of this encounter
--- OUTSIDE RECORDS SUMMARY | 2025-05-22 16:08 | XMS_ITS | Encounter Summary ---
Author Organization [place] Address [address] [facility] [place] [address] Care Team Providers Care Cota Name Role Phone Cosme Wayne MD Unavailable [phone] Cosme Wayne MD Primary Care Provider + Deshawn Veloz MD Unavailable Deshawn Veloz MD Unavailable Mindy Harrison MD Unavailable Karine Rangel [facility] Unavailable [phone] Karine Rangel [facility] Unavailable [phone] Devon Hernandez MD Unavailable [phone] Mary Trent-C Unavailable [phone] Cal Zelaya-C Unavailable [phone] Mary Trent-C Unavailable [phone] Cal Zelaya-C Unavailable [phone] Reason for Visit * Reason Onset Date Comments Refill Request 04/07/2025 Encounter Details Date Type Department Care Team (Late st Contact Info) Description 04/07/2025 Inge Lema [facility] [address] [phone] Robyn You, INSPECTOR PLATING [facility] [address] [address] Refill Request Social History Tobacco Use Types Packs/Day Years [...] relatives? Three times a week 12/04/2023 Attends Congregational Services Not on file 12/04 Active Member of Clubs or Organizations Not on f ile 12/04/2023 Attends Club or Organization Meetings Not on abad e 12/04/2023 Marital Status Not on file 12/04/2023 PHQ-2 Answer Date Recorded PHQ-2 Score 2 02/11/2025 [facility] [...] PM CDT Legal Sex Male 3:12 AM MANUSCRIPTS CURATOR Gender Identity Male 07/22/2021 2:30 PM CDT Sexual Orientation Straight 07/22/2021 2: 30 PM CDT documented as of this encounter Miscellaneous Notes * Telephone Encounter - Valentina Cole RN - 04/07/2025 11:05 AM CDT Pharmacy requested refills that are already active on file. Refused request to pharmacy. documented in this encounter Plan of Treatment Upcoming Encounters Date Type Department Care Team (Late st Contact Info) Description 05/28/2025 1:40 PM CDT Therapy Visit [facility] [address] [facility] [address] [place] [address] Mary Trent PAAllisonC [address] [place], [place] 56[address] [place] [address] [place] [address] 06/04/2025 1:40 PM CDT Therapy Visit [facility] [address] [facility] [address] [place] [phone] Mary Trent PA-C [address] [place] 897685 [place] [address] [place] [address] 07/01/2025 10:30 AM CDT Virtual Visit [facility] [place] [address] [facility] [address] [place] [phone] Mary Trent PA-C [address] [facility] [address] [place] [address] 07/01/2025 11:00 AM CDT Virtual Visit [facility] [place] [address] [facility] [address] [place] [phone] Christina Paz, RD, LD [address] [facility] [place] [address]15 09/20/2025 10:00 AM MANUSCRIPTS CURATOR Office Visit [facility] [place] [address] [facility], [address] [place] [phone] Deshawn Veloz MD [address] [facility] [place] [address] documented as of this encounter Visit Diagnoses Diagnosis Essential hypertension Unspecified essential hypertension documented in this encounter Additional Health Concerns Assessment Noted Time PHQ-9 Depression Total Score: 8 02/12/20 25 8:47 AM CDT documented as of this encounter Care Teams Cota Relationship Specialty Start Date End Date Cosme Wayne MD [address] [place] [address] PCP - General Internal Medicine 08/27/22 Cosme Wayne MD [address] [place] [address] Assigned PCP 08/13/21 Deshawn Veloz MD [address] [place] [place] 595725 Neurology 09/24/22 Deshawn Veloz MD [address] [place] [address] Assigned Neuroscience Provider 10/13/22 Mindy Harrison MD [address] [place] [id number] Nephrology 04/22/23 Karine Rangel RPH [address] [place] [address] Pharmacist Pharmacist Drag Out Worker 09/07/24 Karine Rangel RPH 9 [place] [address] Assigned MTM Pharmacist 09/12/24 Devon Hernandez MD [address] [place] 717145 Hematology & Oncology 12/23/24 Mary Trent PA-C [address] [place] [address] Physician Fisheries Director Bariatric 12/23/24 Cal Zelaya PA-C [address] [place] [address] 632635 Physician Fisheries Director Gastroenterology 12/28/24 Mary Trent PA-C [address] [place] [address] Assigned Surgical Provider 01/10/25 Cal Zelaya PA-C [address] [place] [address] 677815 Assigned Gastroenterology Provider 03/12/25 documented as of this encounter
--- OUTSIDE RECORDS SUMMARY | 2025-05-22 16:08 | XMS_ITS | Encounter Summary ---
Author Organization [place] Address [address] [facility] [place] [address] Care Team Providers Care Manager Of Allied Health Services Name Role Phone Cosme Wayne MD Unavailable [phone] Cosme Wayne MD Primary Care Provider + Deshawn Veloz MD Unavailable Deshawn Veloz MD Unavailable Mindy Harrison MD Unavailable Karine Rangel [facility] Unavailable [phone] Karine Rangel [place] Unavailable [phone] Devon Hernandez MD Unavailable [phone] Mary Trent-C Unavailable [phone] Cal Zelaya-C Unavailable [phone] Mary Trent-C Unavailable [phone] Cal Zelaya-C Unavailable [phone] Reason for Visit * Reason Comments Medication Refill Encounter Details Date Type Department Care Team (Late st Contact Info) Description 04/07/2025 Refill [facility] [address] [phone] Robyn You, PETROLEUM PLANT OPERATOR [facility] [address] [address] Medication Refill Social History Tobacco Use Types [...] relatives? Three times a week 12/04/2023 Attends Sabianist Services Not on file 12/04 Active Member of Clubs or Organizations Not on f ile 12/04/2023 Attends Club or Organization Meetings Not on abad e 12/04/2023 Marital Status Not on file 12/04/2023 PHQ-2 Answer Date Recorded PHQ-2 Score 2 02/11/2025 [facility] Health - [...] PM CDT Legal Sex Male 3:12 AM MARGARINE MAKER Gender Identity Male 07/22/2021 2:30 PM CDT Sexual Orientation Straight 07/22/2021 2: 30 PM CDT documented as of this encounter Plan of Treatment Upcoming Encounters Date Type Department Care Team (Late st Contact Info) Description 05/28/2025 1:40 PM CDT Therapy Visit [facility] [address] [facility] [address] [place] [phone] Mary Trent PA-C [address] [place] [address] [place] [address] [facility] [address] [place], [place] [id number] 06/04/2025 1:40 PM CDT Therapy Visit [facility] [address] [facility] [address] [place] [phone] Mary Trent PA-C [address] [place] [address] [place] [address] [place], [place] [address] 07/01/2025 10:30 AM CDT Virtual Visit [facility] [place] [address] [facility] [address] [place] [phone] Mary Trent PA-C [address] [facility] [address] [place] 83[address] 07/01/2025 11:00 AM CDT Virtual Visit [facility] [place] [address] [facility] [address] [place] [phone] Christina Paz, RD, LD [address] [facility] [place] 8[address]15 09/20/2025 10:00 AM MARGARINE MAKER Office Visit [facility] - [place] [address] [facility], [address] [place] [phone] Deshawn Veloz MD [address] [place], [place] 9468[address] documented as of this encounter Visit Diagnoses Diagnosis Essential hypertension Unspecified essential hypertension documented in this encounter Additional Health Concerns Assessment Noted Time PHQ-9 Depression Total Score: 8 02/12/20 25 8:47 AM CDT documented as of this encounter Care Teams Manager Of Allied Health Services Relationship Specialty Start Date End Date Cosme Wayne MD [address] [place] [address] PCP - General Internal Medicine 08/27/22 Cosme Wayne MD [address] [place] [address] Assigned PCP 08/13/21 Deshawn Veloz MD [address] [place] 6[address]95 Neurology 09/24/22 Deshawn Veloz MD [address] [place] 6[address]65 Assigned Neuroscience Provider 10/13/22 Mindy Harrison MD [address] [place] 008195 Nephrology 04/22/23 [facility] 909 [place] [address] Pharmacist Pharmacist Rand Butting Machine Operator 09/07/24 [facility] 9 [place] [address] Assigned MTM Pharmacist 09/12/24 Devon Hernandez MD [address] [place] [address] Hematology & Oncology 12/23/24 Mary Trent, PAAllisonC [address] [place] [address] Physician Professor Of Violin Bariatric 12/23/24 Cal Zelaya PA-C 909 [place] [address] Physician Professor Of Violin Gastroenterology 12/28/24 Mary Trent PA-C [address] [facility] [address] [place], [place] [address] Assigned Surgical Provider 01/10/25 Cal Zelaya PA-C 909 [place] [address] Assigned Gastroenterology Provider 03/12/25 documented as of this encounter
--- OUTSIDE RECORDS SUMMARY | 2025-05-22 16:08 | XMS_ITS | Clinical Summary ---
Author Organization [facility] [employer] [facility] Address [address] [place] [address] Care Team Providers Care Or Rn Name Role Phone Augustin Vail MD Primary Care Provider Yazmin gonzalez Allergies Active Allergy Reactions Criticality Noted Date Comments Amlodipine Angioedema 07/26/2022 Lisinopril Anaphylaxis High 07/30/2021 unable to breath-gasping for breath-Numbness in face- Medications methylPREDNISolon e (Medrol, Kalin,) 4 mg tabletIndications :Cervical radiculopathy Take by mouth as instructed per packaging. 21 Tablet 01/29/20 23 Active zolpidem (AMBIEN) 10 mg tablet TAKE 1 TABLET BY MOUTH AT BEDTIME NEEDED FOR INSOMNIA 01/10/20 23 Active traZODone (DESYREL) 50 mg tablet 09/07/20 22 Active spironolactone (ALDACTONE) 50 mg tablet 08/24/20 22 Active rOPINIRole (REQUIP) 0.25 mg tablet ropinirole 0.25 mg tablet Active QUEtiapine (SEROQUEL) 100 mg tablet quetiapine 100 mg tablet 01/19/20 22 Active pantoprazole (PROTONIX) 40 mg delayed-release tablet pantoprazole 40 mg tablet,delayed release Active metoprolol succinate (TOPROL XL) 100 mg Sustained-Release tablet 01/10/20 23 Active LORazepam (ATIVAN) 0.5 mg tab TAKE 1 TABLET BY MOUTH DAILY NEEDED FOR ANXIETY 07/27/20 22 Active hydroCHLOROthiazi de 12.5 mg tablet 11/17/19 23 Active gabapentin (NEURONTIN) 300 mg capsule 01/25/20 23 Active eszopiclone (Lunesta) 1 mg tablet once daily. Active folic acid 1 mg tablet Take 2 mg by mouth. 04/12/20 22 Active ergocalciferol (VITAMIN D2; DRISDOL) 50,000 unit capsule TAKE 1 CAPSULE BY MOUTH 1 TIME A WEEK 01/10/20 23 Active Amphetamine-Dextr oamphetamine (ADDERALL) 30 mg tablet dextroamphetamine- amphetamine 30 mg tablet Active cyclobenzaprine (FLEXERIL) 10 mg tablet cyclobenzaprine 10 mg tablet Active ALPRAZolam (XANAX) 0.5 mg tablet alprazolam 0.5 mg tablet 01/09/20 23 Active amLODIPine (NORVASC) 5 mg tablet 04/13/20 22 Active Social History Tobacco Use Types Packs/Day Years Used Date Smoking Tobacco: Former Cigarettes Q uit: 10/11/2006 Smokeless Tobacco: Never Alcohol Use Standard Drinks/Week Comments Yes 0 (1 standard drink = 0.6 oz pur e alcohol) maybe 1-2/wk Social Connections Answer Date Recorded Frequency of Communication with Friends and Fami ly Not on file 01/28/2023 Sex and Gender Information Value Date Recorded Sex Assigned at Not on file Legal Sex Male 8:16 AM BILLBOARD MECHANIC Gender Identity Not on file Sexual Orientation Not on file Obstetrics History Last Filed Vital Signs Vital Sign Reading Time Taken Comments Blood Pressure 129/70 10/17/2016 3:30 PM BILLBOARD MECHANIC Pulse 57 10/17/2016 3:30 PM BILLBOARD MECHANIC Temperature 37.4 C (99.3 F) 10/17/2016 3:30 PM BILLBOARD MECHANIC Respiratory Rate 16 10/17/2016 3:30 PM BILLBOARD MECHANIC Oxygen Saturation 96% 10/17/2016 3:30 PM BILLBOARD MECHANIC Inhaled Oxygen Concentration - - Weight 104.3 kg (230 lb) 01/28/2023 3:36 PM CDT Height 182.9 cm (6') 01/28/2023 3:36 PM CDT Body Mass Index 31.19 01/28/2023 3:36 PM CDT Plan of Treatment Health Maintenance Due Date Last Done Comments Tetanus booster 1979 Depression screening for age 12+ 1980 HIV for age 15-65 1983 Hepatitis C screening for ag e 18-79 1986 Hepatitis B series for 19+ ( 1 of 3 - 19+ 3-dose series) 1987 Colonoscopy through age 75 2013 Lipids for age 45-75 2013 Pneumococcal series for age 50+ (1 of 1 - PCV) 2018 Zoster (shingles) series for age 50+ (1 of 2) 2018 BMI (ht and wt on same day) for age 18+ 01/29/2024 01/28/2023, 03/27/2019 COVID-19 vaccine series (2023- season) 2024 08/21/2023, 07/02/2022, 11/16/2021, Additional history exists Influenza Vaccine (#1) 2025 Insurance [facility] Advance Directives * Full Code (Latest Code Status on File) Date Activated Date Inactivated Comments 10/17/2016 12:41 PM 10/17/2016 8:09 PM Question Answer Comments Code Status Discussion: Discussed * Full Code Date Activated Date Inactivated Comments 10/17/2016 11:14 AM 10/17/2016 12:41 PM Question Answer Comments Code Status Discussion: Discussed * Full Code Date Activated Date Inactivated Comments 10/17/2016 9:36 AM 10/17/2016 11:14 AM Care Teams Or Rn Relationship Specialty Start Date End Date Augustin Vail MD PCP - General Family Practice 09/18/11
--- OUTSIDE RECORDS SUMMARY | 2025-05-22 16:08 | XMS_ITS | Encounter Summary ---
Author Organization [place] Address [address] [facility] [place] [address] Care Team Providers Care Cans Vacuum Tester Name Role Phone Cosme Wayne MD Unavailable [phone] Cosme Wayne MD Primary Care Provider + Deshawn Veloz MD Unavailable Deshawn Veloz MD Unavailable Mindy [place] MD Unavailable Karine Rangel [facility] Unavailable [phone] Karine Rangel [place] Unavailable [phone] Devon Hernandez MD Unavailable [phone] Mary Trent PA-C Unavailable [phone] Cal Zelaya PA-C Unavailable [phone] Mary Trent PA-C Unavailable [phone] Cal Zelaya PA-C Unavailable [phone] Encounter Details Date Type Department Care Team (Latest Contact Info) Description 04/27/2025 Travel Social History Tobacco Use Types Packs/Day [...] relatives? Three times a week 12/04/2023 Attends Adventist Services Not on file 12/04 Active Member of Clubs or Organizations Not on f ile 12/04/2023 Attends Club or Organization Meetings Not on abad e 12/04/2023 Marital Status Not on file 12/04/2023 PHQ-2 Answer Date Recorded PHQ-2 Score 2 02/11/2025 [facility] - Occupational Stress Questionnaire Answer Date [...] PM CDT Legal Sex Male 3:12 AM MILLINERY BLOCKER Gender Identity Male 07/22/2021 2:30 PM CDT Sexual Orientation Straight 07/22/2021 2: 30 PM CDT documented as of this encounter Plan of Treatment Upcoming Encounters Date Type Department Care Team (Late st Contact Info) Description 05/28/2025 1:40 PM CDT Therapy Visit [address] [place] [phone] Mary Trent, PAAllisonC [address] [place] [address] [place] [address] [place] [address] 06/04/2025 1:40 PM CDT Therapy Visit [address] [employer] [address] [place] [phone] Mary Trent PA-C [address] [place] [address] [place] [address] [place] [address] 07/01/2025 10:30 AM CDT Virtual Visit [facility] [place] [address] [facility] [address] [place] [phone] Mary Trent PA-C [address] [place], [place] [address] 07/01/2025 11:00 AM CDT Virtual Visit [facility] [place] [address] [facility] [address] [place] [phone] Christina Paz, RD, LD [address] [place], [place] [address] 09/20/2025 10:00 AM MILLINERY BLOCKER Office Visit [facility] [place] [address] [facility], [address] [place] [phone] Deshawn Veloz MD [address] [place], [place] 5[address] documented as of this encounter Visit Diagnoses Not on filedocumented in this encounter Additional Health Concerns Assessment Noted Time PHQ-9 Depression Total Score: 8 02/12/20 25 8:47 AM CDT documented as of this encounter Care Teams Cans Vacuum Tester Relationship Specialty Start Date End Date Cosme Wayne MD [address] [place] [address] PCP - General Internal Medicine 08/27/22 Cosme Wayne MD [address] [place] [address] Assigned PCP 08/13/21 Deshawn Veloz MD [address] [place], [place] 223[address] Neurology 09/24/22 Deshawn Veloz MD [address] [place] [id number] Assigned Neuroscience Provider 10/13/22 Mindy Harrison MD [address] [place] [place] 838815 Nephrology 04/22/23 Karine Rangel RPH [address] [place] [address] 039595 Pharmacist Pharmacist Racking Technician 09/07/24 Karine Rangel RPH [address] [place] [address] 933735 Assigned [place] Pharmacist 09/12/24 Devon Hernandez MD [address] [facility] [place] 0764[address] Hematology & Oncology 12/23/24 Mary Trent PA-C [address] [place] [address] Physician Tracer Powder Blender Bariatric 12/23/24 Cal Zelaya PA-C [address] [place] [address] 609735 Physician Tracer Powder Blender Gastroenterology 12/28/24 Mary Trent PA-C [address] [place] [id number] Assigned Surgical Provider 01/10/25 Cal Zelaya PA-C 9 [place] [address] Assigned Gastroenterology Provider 03/12/25 documented as of this encounter
--- OUTSIDE RECORDS SUMMARY | 2025-05-22 16:08 | XMS_ITS | Encounter Summary ---
Author Organization [place] Address [address] [facility] [place] [place] [address] Care Team Providers Care Die Drawing Checker Name Role Phone Cosme Wayne MD Unavailable [phone] Cosme Wayne MD Primary Care Provider + Deshawn Veloz MD Unavailable Deshawn Veloz MD Unavailable Mindy Harrison MD Unavailable Karine Rangel [facility] Unavailable [phone] Karine Rangel [facility] Unavailable [phone] Devon Hernandez MD Unavailable [phone] Mary Trent-C Unavailable [phone] Cal Zelaya-C Unavailable [phone] Mary Trent-C Unavailable [phone] Cal Zelaya-C Unavailable [phone] Devon Hernandez MD Unavailable [phone] Encounter Details Date Type Department Care Team (Late st Contact Info) Description 04/20/2025 [facility] [address] [place] [address] Whit Carrasquillo, GUEST SERVICES ATTENDANT Social History Tobacco Use Types Packs/Day Years [...] PHQ-2 Score 2 02/11/2025 [facility] [place] of Occupat ional Health - Occupational Stress [...] in an abandoned building, in an overnight alf, or couch-surfing.) Yes 11/29/2024 Are you worried [...] PM CDT Legal Sex Male 3:12 AM LEGAL ADVISOR Gender Identity Male 07/22/2021 2:30 PM CDT Sexual Orientation Straight 07/22/2021 2: 30 PM CDT documented as of this encounter Plan of Treatment Upcoming Encounters Date Type Department Care Team (Late st Contact Info) Description 05/28/2025 1:40 PM CDT Therapy Visit [facility] [address] [place] [phone] Mary Trent PA-C [address] [place] [address] [place] [address] [facility] [address] [place] [address] 06/04/2025 1:40 PM CDT Therapy Visit [facility] [address] [place] [phone] Mary Trent PA-C [address] [place] [address] [place] [address] [place], [place] [address] 07/01/2025 10:30 AM CDT Virtual Visit [facility] [place] [address] [facility] [address] [place] [phone] Mary Trent, PA-C [address] [place], [place] [address] 07/01/2025 11:00 AM CDT Virtual Visit [facility] [place] [address] [facility] [address] [place] [phone] Christina Paz, RD, LD [address] [facility] [place], [place] [address] 09/20/2025 10:00 AM LEGAL ADVISOR Office Visit [facility] [place] [address] [facility], [address] [place] [phone] Deshawn Veloz MD [address] [place], [place] [address] documented as of this encounter Visit Diagnoses Not on filedocumented in this encounter Additional Health Concerns Assessment Noted Time PHQ-9 Depression Total Score: 8 02/12/20 25 8:47 AM CDT documented as of this encounter Care Teams Die Drawing Checker Relationship Specialty Start Date End Date Cosme Wayne MD [address] [place] [address] PCP - General Internal Medicine 08/27/22 Cosme Wayne MD [address] [place] [address] Assigned PCP 08/13/21 Deshawn Veloz MD [address] [place] 335165 Neurology 09/24/22 Deshawn Veloz MD [address] [place] 426695 Assigned Neuroscience Provider 10/13/22 Mindy Harrison MD [address] [place] 884595 Nephrology 04/22/23 Karine Rangel [facility] [address] [place] [address] [phone] Pharmacist Pharmacist Glass Calibrator 09/07/24 Karine Rangel [facility] [address] [place] [address] 395145 Assigned MTM Pharmacist 09/12/24 Devon Hernandez MD [address] [place] 397565 Hematology & Oncology 12/23/24 Mary Trent PA-C [address] [place] [id number] Physician Fast Food Server Bariatric 12/23/24 Cla Zelaya PA-C [address] [place] [address] 233185 Physician Fast Food Server Gastroenterology 12/28/24 Mary Trent PA-C [address] [place] [address] Assigned Surgical Provider 01/10/25 Cal Zelaya PA-C [address] [place] [address] Assigned Gastroenterology Provider 03/12/25 Devon Hernandez MD [address] [place] [address] Assigned Cancer Care Provider 05/12/25 documented as of this encounter
--- OUTSIDE RECORDS SUMMARY | 2025-05-22 16:08 | XMS_ITS | Encounter Summary ---
Author Organization [place] Address [address] [facility] [place] [address] Care Team Providers Care Machine Rigger Name Role Phone Cosme Wayne MD Unavailable [phone] Cosme Wayne MD Primary Care Provider + Deshawn Veloz MD Unavailable Deshawn Veloz MD Unavailable Neri Yusuf DPM Unavailable [phone] Mindy Harrison MD Unavailable Mary Trent-C Unavailable [phone] Karine Rangel [facility] Unavailable [phone] Karine Rangel [facility] Unavailable [phone] Mariana Queen MD Unavailable [phone] Devon Hernandez MD Unavailable [phone] Mary Trent-C Unavailable [phone] Cal Zelaya PA-C Unavailable [phone] Mary Trent-Baldemar Unavailable [phone] Cal Zelaya-C Unavailable [phone] Devon Hernandez MD Unavailable [phone] Encounter Details Date Type Department Care Team (Late st Contact Info) Description 12/16/2023 [facility] Medical Advice [address] [address] Shari Carrera, RN Social History Tobacco Use Types Packs/Day [...] PHQ-2 Answer Date Recorded PHQ-2 Score 2 12/04/2023 [facility] Occupat ional [facility] - Occupational Stress Questionnaire Answer Date [...] in an overnight fpc, or couch-surfing.) Yes 12/04/2023 Are you worried [...] PM CDT Legal Sex Male 3:12 AM DISPLAY TRIMMER Gender Identity Male 07/22/2021 2:30 PM CDT Sexual Orientation Straight 07/22/2021 2: 30 PM CDT documented as of this encounter Plan of Treatment Upcoming Encounters Date Type Department Care Team (Late st Contact Info) Description 05/28/2025 1:40 PM CDT Therapy Visit [facility] [address] [facility] [address] [place] [phone] Mary Trent, PA-C [address] [place] [address] [place] [address] [facility] [address] [place] [address] 06/04/2025 1:40 PM CDT Therapy Visit [facility] [address] [facility] [address] [place] [phone] Mary Trent PA-C [address] [place] 669545 [place] [address] [place], [place] [address] 07/01/2025 10:30 AM CDT Virtual Visit [facility] [place] [address] [facility] [address] [place] [phone] Mary Trent PA-C [address] [place] [address] 07/01/2025 11:00 AM CDT Virtual Visit [facility] [place] [address] [facility] [address] [place] [phone] Christina Paz, RD, LD [address] [place] 310925 09/20/2025 10:00 AM DISPLAY TRIMMER Office Visit [facility] [place] [address] [facility], [address] [place] [phone] Deshawn Veloz MD [address] [place] [address]335 documented as of this encounter Visit Diagnoses Not on filedocumented in this encounter Additional Health Concerns Infection Onset Date Last Indicated Resolved Time Rule Out COVID-19 01/31/2025 01/31/2025 01/31/2025 1:07 PM CDT COVID-19 01/31/2025 01/31/2025 02/11/2025 11:3 9 PM CDT Assessment Noted Time PHQ-9 Depression Total Score: 6 12/04/19 10:43 AM DISPLAY TRIMMER documented as of this encounter Care Teams Machine Rigger Relationship Specialty Start Date End Date Cosme Wayne MD [address] [place] [address] PCP - General Internal Medicine 08/27/22 Cosme Wayne MD [address] [place] [address] Assigned PCP 08/13/21 Deshawn Veloz MD [address] [address]555 Neurology 09/24/22 Deshawn Veloz MD [address] [place] 448965 Assigned Neuroscience Provider 10/13/22 Neri Yusuf DPM [address] [address] [place], [place] 524867 Assigned Surgical Provider 11/24/22 03/11/24 [place] [address] [address] [place], [place] 0528[address] Nephrology 04/22/23 Mary Trent PAAllisonC [address] [place] 6[address]35 Assigned Surgical Provider 07/13/24 09/11/24 Karine Rangel RPH 9 [place], [place] 143975 Pharmacist Pharmacist Molecular Biologist 09/07/24 Karine Rangel [facility] [address] [place] [address] 871015 Assigned MTM Pharmacist 09/12/24 Mariana Queen MD [address] [place] [address] Assigned Surgical Provider 09/12/24 01/09/25 Devon Hernandez MD [address] [place], [place] 4204[address] Hematology & Oncology 12/23/24 Mary Trent PA-C [address] [place], [place] [address] Physician Allied Health Instructor Bariatric 12/23/24 Cal Zelaya PA-C [address] [place] [address] 891855 Physician Allied Health Instructor Gastroenterology 12/28/24 Mary Trent PA-C [address] [place], [place] 754[address] Assigned Surgical Provider 01/10/25 Cal Zelaya PA-C [address] [place] [address] [phone] Assigned Gastroenterology Provider 03/12/25 Devon Hernandez MD [address] [place], [place] 052935 Assigned Cancer Care Provider 05/12/25 documented as of this encounter
--- OUTSIDE RECORDS SUMMARY | 2025-05-22 16:08 | XMS_ITS | Encounter Summary ---
Author Organization [place] Address [address] [facility] [place] [address] Care Team Providers Care Human Resources Associate Name Role Phone Cosme Wayne MD Unavailable [phone] Cosme Wayne MD Primary Care Provider + Deshawn Veloz MD Unavailable Deshawn Veloz MD Unavailable Neri Yusuf DPM Unavailable [phone] Mindy Harrison MD Unavailable Mary Trent-C Unavailable [phone] Karine Rangel [facility] Unavailable [phone] Karine Rangel [facility] Unavailable [phone] Mariana Queen MD Unavailable [phone] Devon Hernandez MD Unavailable [phone] Mary TrentC Unavailable [phone] Cal Zelaya-C Unavailable [phone] Mary Trent-Baldemar Unavailable [phone] Cal Zelaya-C Unavailable [phone] Devon Hernandez MD Unavailable [phone] Reason for Visit * Reason Comments Medication Refill Encounter Details Date Type Department Care Team (Late st Contact Info) Description 02/18/2024 Refill M [facility] Neurology [facility] [address] [facility], [address] [place] [address] Deshawn Veloz MD [address] [place] [address] Medication Refill Social History Tobacco Use Types [...] Answer Date Recorded PHQ-2 Score 2 12/04/2023 [employer] [employer] [place] of Occupat ional Health - Occupational Stress [...] PM CDT Legal Sex Male 3:12 AM MEDIA SERVICES SPECIALIST Gender Identity Male 07/22/2021 2:30 PM CDT Sexual Orientation Straight 07/22/2021 2: 30 PM CDT documented as of this encounter Miscellaneous Notes * Telephone Encounter - Laurita Elizondo CMA - 02/19/2024 8:43 AM CDT Spoke with patient's spouse, at this time they just picked up prescription and should be good untilappointment. Routing to provider as SHELLIE Cooper MA [facility] * Telephone Encounter - Laurita Elizondo CMA - 02/18/2024 4:13 PM CDT Pending Prescriptions: Disp Refills gabapentin (NEURONTIN) 300 MG capsule [Ph*720 ca*1 Sig: TAKE 2 CAPSULES BY MOUTH FOUR TIMES DAILY PHILIP: 09/20/23 NOV: 03/23/24 Last Refill: 09/20/23 Chart Notes: We decided to increase gabapentin dose to 600 mg 4 times per day. I updated prescription. documented in this encounter Plan of Treatment Upcoming Encounters Date Type Department Care Team (Late st Contact Info) Description 05/28/2025 1:40 PM CDT Therapy Visit [facility] [address] [place] [address] [place] [phone] Mary Trent PA-C [address] [facility] [place] [address] [place] [address] [place] [address] [place] [address] 06/04/2025 1:40 PM CDT Therapy Visit [address] [place] [phone] Mary Trent PA-C [address] [facility] [place] [address] [place] [address] [place] [address] [place] [address] 07/01/2025 10:30 AM CDT Virtual Visit [facility] [place] [address] [facility] [address] [place] [phone] Mary Trent PA-C [address] [facility] [place] [address] 07/01/2025 11:00 AM CDT Virtual Visit [facility] [place] [address] [facility] [address] [place] [phone] Christina Paz, RD, [place] [address] [place] [address] 09/20/2025 10:00 AM MEDIA SERVICES SPECIALIST Office Visit [facility] [place] [address] [facility], [address] [place] [phone] Deshawn Veloz MD [address] [place] 122455 documented as of this encounter Visit Diagnoses Diagnosis Peripheral polyneuropathy Unspecified hereditary and idiopathic peripheral neuropathy Restless leg syndrome Restless legs syndrome (RLS) documented in this encounter Additional Health Concerns Infection Onset Date Last Indicated Resolved Time Rule Out COVID-19 01/31/2025 01/31/2025 01/31/2025 1:07 PM CDT COVID-19 01/31/2025 01/31/2025 02/11/2025 11:3 9 PM CDT Assessment Noted Time PHQ-9 Depression Total Score: 6 12/04/19 10:43 AM MEDIA SERVICES SPECIALIST documented as of this encounter Care Teams Human Resources Associate Relationship Specialty Start Date End Date Cosme Wayne MD [address] [place] [address] PCP - General Internal Medicine 08/27/22 Cosme Wayne MD [address] [place] [address] Assigned PCP 08/13/21 Deshawn Veloz MD [address] [place] 011445 Neurology 09/24/22 Deshawn Veloz MD [address] [place] 0[address]295 Assigned Neuroscience Provider 10/13/22 Neri Yusuf DPM [address] [address] [employer] [address] [place], [place] 3467[address] Assigned Surgical Provider 11/24/22 03/11/24 [place] [address] [employer] [facility] [address] [place], [place] [address] Nephrology 04/22/23 Mary Trent, PA-C [address] [place] 297[address] Assigned Surgical Provider 07/13/24 09/11/24 Karine Rangel [facility] [address] [place] [address] [phone] Pharmacist Pharmacist Trust Administrator 09/07/24 Karine Rangel [facility] [address] [place] [address] Assigned MTM Pharmacist 09/12/24 Mariana Queen MD [address] [place], [place] 2044[address] Assigned Surgical Provider 09/12/24 01/09/25 Devon Hernandez MD [address] [facility] [place] [address] Hematology & Oncology 12/23/24 Mary Trent PA-C [address] [place] [address] Bariatric 12/23/24 Cal Zelaya PA-C [address] [place] [address] Judge Gastroenterology 12/28/24 Mary Trent PA-C [address] [place] [address] Assigned Surgical Provider 01/10/25 Cal Zelaya PA-C [address] [place] [address] 827815 Assigned Gastroenterology Provider 03/12/25 Devon Hernandez MD [address] [place], [place] [address] Assigned Cancer Care Provider 05/12/25 documented as of this encounter
--- OUTSIDE RECORDS SUMMARY | 2025-05-22 16:08 | XMS_ITS | Encounter Summary ---
Author Organization [place] Address [address] [facility] [place] [address] Care Team Providers Care Gradall Operator Name Role Phone Augustin Vail MD Primary Care Provider [phone] [facility] Primary Care Provider + Cosme Wayne MD Unavailable [phone] Cosme Wayne MD Primary Care Provider + Neri Yusuf DPM Unavailable [phone] Deshawn Veloz MD Unavailable Deshawn Veloz MD Unavailable Neri Yusuf DPM Unavailable [phone] Mindy Harrison MD Unavailable Mary TrentC Unavailable [phone] Karine Rangel [facility] Unavailable [phone] Karine Rangel [facility] Unavailable [phone] Mariana Queen MD Unavailable [phone] Devon Hernandez MD Unavailable [phone] Mary TrentC Unavailable [phone] Cal Zelaya-C Unavailable Mary Trent-C Unavailable [phone] Cal Zelaya PA-C Unavailable [phone] Devon Hernandez MD Unavailable [phone] Encounter Details Date Type Department Care Team (Late st Contact Info) Description 09/23/2017 MyC Medical Advice [facility] [place] [address] [place] [phone] Vale Koroma Y, CREATIVE/ART DIRECTOR Social History Tobacco Use Types Packs/Day Years Used Date Smoking Tobacco: Former Cigarettes 0.5 17 0 10/21/1982 - 10/21/1999 Smokeless Tobacco: Never Alcohol Use Standard Drinks/Week Comments Yes 1.7 (1 standard drink = 0.6 oz p ure alcohol) Sex and Gender Information Value Date Recorded Sex Assigned at Male 07/22/2021 2:30 PM CDT Legal Sex Male 3:12 AM PAINTER APPRENTICE Gender Identity Male 07/22/2021 2:30 PM CDT Sexual Orientation Straight 07/22/2021 2: 30 PM CDT documented as of this encounter Plan of Treatment Upcoming Encounters Date Type Department Care Team (Late st Contact Info) Description 05/28/2025 1:40 PM CDT Therapy Visit [facility] [address] [facility] [address] [place] [phone] Mary Trent PA-C [address] [place] [address] [place] [address] [facility] [address] [place], [place] [address] 06/04/2025 1:40 PM CDT Therapy Visit [facility] [address] [facility] [address] [place] [phone] Mary Trent PA-C [address] [place] [address] [place] [address] [place] [address] 07/01/2025 10:30 AM CDT Virtual Visit [facility] [place] [address] [facility] [address] [place] [phone] Mary Trent PA-C [address] [facility] [address] [place], [place] [address] 07/01/2025 11:00 AM CDT Virtual Visit [facility] [place] [address] [facility] [address] [place] [phone] Christina Paz, RD, LD [address] [place], [place] [address] 09/20/2025 10:00 AM PAINTER APPRENTICE Office Visit [facility] [place] [address] [facility], [address] [place] [phone] Deshawn Veloz MD [address] [place], [place] [address] documented as of this encounter Visit Diagnoses Not on filedocumented in this encounter Additional Health Concerns Infection Onset Date Last Indicated Resolved Time Rule Out COVID-19 01/02/2021 01/02/2021 01/02/2021 3:35 PM CDT Rule Out COVID-19 10/12/2021 10/12/2021 10/13/2021 1:19 PM PAINTER APPRENTICE Rule Out COVID-19 01/18/2022 01/18/2022 01/18/2022 10:51 PM CDT Rule Out COVID-19 01/31/2025 01/31/2025 01/31/2025 1:07 PM CDT COVID-19 01/31/2025 01/31/2025 02/11/2025 11:3 9 PM CDT documented as of this encounter Care Teams Gradall Operator Relationship Specialty Start Date End Date Augustin Vail MD [facility] [address] [place] [phone] PCP - General Family Practice 02/17/16 12/13/19 [facility] PCP - General Family Practice 12/14/19 08/26/22 Cosme Wayne MD [address] [place] [address] PCP - General Internal Medicine 08/27/22 Cosme Wayne MD [address] [place] [address] Assigned PCP 08/13/21 Neri Yusuf DPM [address] [address] [place] [address] Assigned Musculoskeletal Provider 09/15/22 11/23/22 Deshawn Veloz MD [address] [place] [address] Neurology 09/24/22 Deshawn Veloz MD [address] [address] Assigned Neuroscience Provider 10/13/22 Neri Yusuf DPM [address] [place] [address] Assigned Surgical Provider 11/24/22 03/11/24 [place] [address] [facility] [address] [place] [address] Nephrology 04/22/23 Mary Trent PA-C [address] [place], [place] [address] Assigned Surgical Provider 07/13/24 09/11/24 Kraine Rangel [facility] [address] [place] [address] Pharmacist Pharmacist C.O.D. Clerk 09/07/24 Karine Rangel [facility] [address] [place], [place] 8[address] Assigned MTM Pharmacist 09/12/24 Mariana Queen MD [address] [place], [place] [address]687 Assigned Surgical Provider 09/12/24 01/09/25 Devon Hernandez MD [address] [place], [place] [address] Hematology & Oncology 12/23/24 Mary Trent PA-C [address] [place] [address] Physician Dramatic Reader Bariatric 12/23/24 Cal Zelaya PA-C [address] [place], [place] [address] Physician Dramatic Reader Gastroenterology 12/28/24 Mary Trent PA-C [address] [place] 628865 Assigned Surgical Provider 01/10/25 Cal Zelaya PA-C [address] [place], [place] 8[address] Assigned Gastroenterology Provider 03/12/25 Devon Hernandez MD [address] [place] [id number] Assigned Cancer Care Provider 05/12/25 documented as of this encounter
--- OUTSIDE RECORDS SUMMARY | 2025-05-22 16:08 | XMS_ITS | Encounter Summary ---
Author Organization [place] Address [address] [facility] [place] [address] Care Team Providers Care Log Chain Feeder Name Role Phone Cosme Wayne MD Unavailable [phone] Cosme Wayne MD Primary Care Provider + Deshawn Veloz MD Unavailable Deshawn Veloz MD Unavailable Mindy [place] MD Unavailable Karine Rangel [facility] Unavailable [phone] Karine Rangel Nicol[place] Unavailable [phone] Devon Hernandez MD Unavailable [phone] Mary Trent PA-C Unavailable [phone] Cal Zelaya PA-C Unavailable [phone] Mary Trent PA-C Unavailable [phone] Cal Zelaya PA-C Unavailable [phone] Encounter Details Date Type Department Care Team (Latest Contact Info) Description 04/30/2025 Travel Social History Tobacco Use Types Packs/Day [...] relatives? Three times a week 12/04/2023 Attends Gnosticism Services Not on file 12/04 Active Member of Clubs or Organizations Not on f ile 12/04/2023 Attends Club or Organization Meetings Not on abad e 12/04/2023 Marital Status Not on file 12/04/2023 PHQ-2 Answer Date Recorded PHQ-2 Score 2 02/11/2025 [facility] - Occupational Stress Questionnaire Answer [...] PM CDT Legal Sex Male 3:12 AM IMMIGRATION MANAGER Gender Identity Male 07/22/2021 2:30 PM CDT Sexual Orientation Straight 07/22/2021 2: 30 PM CDT documented as of this encounter Plan of Treatment Upcoming Encounters Date Type Department Care Team (Late st Contact Info) Description 05/28/2025 1:40 PM CDT Therapy Visit [address] [place] [phone] Mary Trent, PAAllisonC [address] [place] [address] [place] [address] [place] [address] 06/04/2025 1:40 PM CDT Therapy Visit [address] [facility] [address] [place] [phone] Mary Trent PA-C [address] [place] [address] 722245 [place] [address] [place] [address] 07/01/2025 10:30 AM CDT Virtual Visit [facility] [place] [address] [facility] [address] [place] [phone] Mary Trent PA-C [address] [place], [place] [address] 07/01/2025 11:00 AM CDT Virtual Visit [facility] [place] [address] [facility] [address] [place] [address] Christina Paz, RD, LD [address] [place], [place] [address] 09/20/2025 10:00 AM IMMIGRATION MANAGER Office Visit [facility] [place] [address] [facility], [address] [place] [address] Deshawn Veloz MD [address] [place], [place] [address] documented as of this encounter Visit Diagnoses Not on filedocumented in this encounter Additional Health Concerns Assessment Noted Time PHQ-9 Depression Total Score: 8 02/12/20 25 8:47 AM CDT documented as of this encounter Care Teams Log Chain Feeder Relationship Specialty Start Date End Date Cosme Wayne MD [address] [place] [address]257 PCP - General Internal Medicine 08/27/22 Cosme Wayne MD [address] [place] [address] 06000 Assigned PCP 08/13/21 Deshawn Veloz MD [address] [place], [place] [address] Neurology 09/24/22 Deshawn Veloz MD [address] [place] [id number] Assigned Neuroscience Provider 10/13/22 Mindy [place] MD [address] [place] 037765 Nephrology 04/22/23 Karine Rangel RPH [address] [place] [address] 205935 Pharmacist Pharmacist Tray Server 09/07/24 Karine Rangel RPH [address] [place] [address] 201905 Assigned [place] Pharmacist 09/12/24 Devon Hernandez MD [address] [facility] [place] [id number] Hematology & Oncology 12/23/24 Mary Trent PA-C [address] [place] 707025 Physician Rollway Worker Bariatric 12/23/24 Cal Zelaya PA-C [address] [place] [address] 790915 Physician Rollway Worker Gastroenterology 12/28/24 Mary Trent PA-C [address] [place] 885155 Assigned Surgical Provider 01/10/25 Cal Zelaya PA-C 9 [place] [address] Assigned Gastroenterology Provider 03/12/25 documented as of this encounter
--- OUTSIDE RECORDS SUMMARY | 2025-05-22 16:08 | XMS_ITS | Encounter Summary ---
Author Organization [place] Address [address] [facility] [place] [address] Care Team Providers Care Poultryman Name Role Phone Cosme Wayne MD Unavailable [phone] Cosme Wayne MD Primary Care Provider + Deshawn Veloz MD Unavailable Deshawn Veloz MD Unavailable Mindy [place] MD Unavailable Karine Rangel [facility] Unavailable [phone] [facility] Unavailable [phone] Devon Hernandez MD Unavailable [phone] Mary Trent PA-C Unavailable [phone] Cal Zelaya-C Unavailable [phone] Mary Trent-C Unavailable [phone] Cal Zelaya-C Unavailable [phone] Devon Hernandez MD Unavailable [phone] Reason for Visit * Reason Onset Date Comments Refill Request 04/07/2025 Encounter Details Date Type Department Care Team (Late st Contact Info) Description 04/07/2025 Inge [facility] [address] [place] [address] Mary Trent PA-C [address] [place] [address] Refill Request Social History Tobacco Use Types [...] relatives? Three times a week 12/04/2023 Attends Temple Services Not on file 12/04 Active Member of Clubs or Organizations Not on f ile 12/04/2023 Attends Club or Organization Meetings Not on abad e 12/04/2023 Marital Status Not on file 12/04/2023 PHQ-2 Answer Date Recorded PHQ-2 Score 2 02/11/2025 [facility] [place] of Occupat ional Health - Occupational Stress [...] in an overnight correction, or couch-surfing.) Yes 11/29/2024 Are you worried [...] PM CDT Legal Sex Male 3:12 AM MANAGER PORT Gender Identity Male 07/22/2021 2:30 PM CDT Sexual Orientation Straight 07/22/2021 2: 30 PM CDT documented as of this encounter Miscellaneous Notes * Telephone Encounter - Jacqueline Bautista RN - 04/07/2025 11:03 AM CDT Has refills on file. Can refuse tomorrow. Jacqueline Beck RN, BSN documented in this encounter Plan of Treatment Upcoming Encounters Date Type Department Care Team (Late st Contact Info) Description 05/28/2025 1:40 PM CDT Therapy Visit [facility] [address] [facility] [address] [place] [address] Mary Trent, PA-C [address] [place] [address] [place] [address] [place] 657647 06/04/2025 1:40 PM CDT Therapy Visit [facility] [address] [facility] [address] [place] [phone] Mary Trent PA-C [address] [place] [address] [place] [address] [place] [address] 07/01/2025 10:30 AM CDT Virtual Visit [facility] [place] [address] [facility] [address] [place] [phone] Mary Trent PA-C [address] [facility] [address] [place] 744[address] 07/01/2025 11:00 AM CDT Virtual Visit [facility] [place] [address] [facility] [address] [place] [phone] Christina Paz, RD, LD [address] [facility] [place] [id number] 09/20/2025 10:00 AM MANAGER PORT Office Visit [facility] [place] [address] [place] [address], [address] [place] [phone] Deshawn Veloz MD [address] [facility] [place] 083035 documented as of this encounter Visit Diagnoses Diagnosis Hx of obesity Personal history of other specified diseases documented in this encounter Additional Health Concerns Assessment Noted Time PHQ-9 Depression Total Score: 8 02/12/20 25 8:47 AM CDT documented as of this encounter Care Teams Poultryman Relationship Specialty Start Date End Date Cosme Wayne MD [address] [place] [address] PCP - General Internal Medicine 08/27/22 Cosme Wayne MD [address] [place] [address] 985[address] Assigned PCP 08/13/21 Deshawn Veloz MD [address] [place] [address] Neurology 09/24/22 Deshawn Veloz MD [address] [place] [address] Assigned Neuroscience Provider 10/13/22 Mindy [place] MD [address] [place] [address] Nephrology 04/22/23 Karine Rangel Nicol[place] [address] [place] [address] Pharmacist Pharmacist Calender Wind Up Helper 09/07/24 Karine Rangel Nicolle [address] [place] [address] 67[address] Assigned MTM Pharmacist 09/12/24 Devon Hernandez MD [address] [place] [address] Hematology & Oncology 12/23/24 Mary Trent PA-C [address] [place] [address] Physician Form Worker Bariatric 12/23/24 Cal Zelaya PA-C [address]09 [place], [place] 150785 Physician Form Worker Gastroenterology 12/28/24 Mary Trent PA-C [address] [place] 9[address]65 Assigned Surgical Provider 01/10/25 Cal Zelaya PA-C 909 [place], [place] 673865 Assigned Gastroenterology Provider 03/12/25 Devon Hernandez MD [address] [place] [address] Assigned Cancer Care Provider 05/12/25 documented as of this encounter
--- OUTSIDE RECORDS SUMMARY | 2025-05-22 16:08 | XMS_ITS | Encounter Summary ---
Author Organization [place] Address [facility] [place] [address] Care Team Providers Care Repair Armature Winder Helper Name Role Phone Cosme Wayne MD Unavailable [phone] Cosme Wayne MD Primary Care Provider + Deshawn Veloz MD Unavailable Deshawn Veloz MD Unavailable Mindy [place] MD Unavailable Karine Rangel [facility] Unavailable [phone] Karine Rangel [facility] Unavailable [phone] Devon Hernandez MD Unavailable [phone] Mary Trent-C Unavailable [phone] Cal Zelaya-Baldemar Unavailable [phone] Mary Tretn-Baldemar Unavailable [phone] Cal Zelaya-C Unavailable [phone] Devon Hernandez MD Unavailable [phone] Encounter Details Date Type Department Care Team (Late st Contact Info) Description 04/16/2025 Results Follow-Up [facility] - Cancer Care Service Line [address] [place] [address] Devon Hernandez MD [address] [facility] [address] [address] Subj: Message about your results Social History [...] Answer Date Recorded PHQ-2 Score 2 02/11/2025 [facility] of Occupat ional Health - Occupational Stress [...] PM CDT Legal Sex Male 3:12 AM VOCATIONAL COORDINATOR Gender Identity Male 07/22/2021 2:30 PM CDT Sexual Orientation Straight 07/22/2021 2: 30 PM CDT documented as of this encounter Miscellaneous Notes * Result Encounter Note - Devon Hernandez MD - 04/16/2025 10:36 AM CDT Dear Mr. Zuñiga, Blood test is good. -Anemia has improved. Hemoglobin is 12.4. -Normal iron. -Other blood tests are good. Please, follow up with your primary doctor and have labs monitored. Please, call me with any questions. Devon Hernandez MD documented in this encounter Plan of Treatment Upcoming Encounters Date Type Department Care Team (Late st Contact Info) Description 05/28/2025 1:40 PM CDT Therapy Visit [facility] [address] [facility] [address] [place] [address] Mary Trent, PAAllisonC [address] [place] [address] [place] [address] [place] [address] 06/04/2025 1:40 PM CDT Therapy Visit [facility] [address] [facility] [address] [place] [phone] Mary Trent, PA-C [address] [place] 441515 [place] [address] [place] [address] 07/01/2025 10:30 AM CDT Virtual Visit [facility] [place] [address] [facility] [address] [place] [phone] Mary Trent, PA-C [address] [facility] [address] [place] [id number] 07/01/2025 11:00 AM CDT Virtual Visit [facility] [place] [address] [facility] [address] [place] [phone] Christina Paz, RD, [place] [address] [facility] [address] [place] [address] 09/20/2025 10:00 AM VOCATIONAL COORDINATOR Office Visit [facility] [place] [address] [facility], [address] [place] [phone] Deshawn Veloz MD [address] [place] [place] [address] documented as of this encounter Visit Diagnoses Not on filedocumented in this encounter Additional Health Concerns Assessment Noted Time PHQ-9 Depression Total Score: 8 02/12/20 25 8:47 AM CDT documented as of this encounter Care Teams Repair Armature Winder Helper Relationship Specialty Start Date End Date Cosme Wayne MD [address] [place] [address] PCP - General Internal Medicine 08/27/22 Cosme Wayne MD [address] [place] [address] 8[address]71 Assigned PCP 08/13/21 Deshawn Veloz MD [address] [place] [address] Neurology 09/24/22 Deshawn Veloz MD [address] [place] [address] Assigned Neuroscience Provider 10/13/22 Mindy [place] MD [address] [place] [address] Nephrology 04/22/23 Karine Rangel RPH [address] [place] [address] Pharmacist Pharmacist Fire Safety Director 09/07/24 Karine Rangel RPH [address] [place] [address]27 Assigned MTM Pharmacist 09/12/24 Devon Hernandez MD [address] [place] 3546[address] Hematology & Oncology 12/23/24 Mary Trent PA-C [address] [place] [address] Physician Manager Cosmetics Bariatric 12/23/24 Cal Zelaya PA-C [address]09 [place], [place] 105645 Physician Manager Cosmetics Gastroenterology 12/28/24 Mary Trent PA-C [address] [place] 293035 Assigned Surgical Provider 01/10/25 Cal Zelaya PA-C 909 [place], [place] [address]45 Assigned Gastroenterology Provider 03/12/25 Devon Hernandez MD [address] [place] [address]995 Assigned Cancer Care Provider 05/12/25 documented as of this encounter
--- OUTSIDE RECORDS SUMMARY | 2025-05-22 16:08 | XMS_ITS | Encounter Summary ---
Author Organization [place] Address [address] [facility] [place] [address] Care Team Providers Care Research Professor Name Role Phone Cosme Wayne MD Unavailable [phone] Cosme Wayne MD Primary Care Provider + Deshawn Veloz MD Unavailable Deshawn Veloz MD Unavailable Mindy [place] MD Unavailable Karine Rangel [facility] Unavailable [phone] Karine Rangel [facility] Unavailable [phone] Devon Hernandez MD Unavailable [phone] Mary Trent PA-C Unavailable [phone] Cal Zelaya PA-C Unavailable [phone] Mary Trent PA-C Unavailable [phone] Cal Zelaya PA-C Unavailable Reason for Visit * Reason Comments Medication Refill Encounter Details Date Type Department Care Team (Late st Contact Info) Description 04/07/2025 [facility] [place] [address] [facility] [address] [place] [address] Mary Trent PA-C [address] [facility] [address] [place] [address] Medication Refill Social History Tobacco Use Types [...] relatives? 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 Gender Identity Male 07/22/2021 2:30 PM CDT Sexual Orientation Straight 07/22/2021 2: 30 PM CDT documented as of this encounter Plan of Treatment Upcoming Encounters Date Type Department Care Team (Late st Contact Info) Description 05/28/2025 1:40 PM CDT Therapy Visit [facility] [address] [facility] [address] [place] [phone] Mary Trent PA-C [address] [place] [address] [place] [address] [place], [place] 23[address] 06/04/2025 1:40 PM CDT Therapy Visit [facility] [address] [facility] [address] [place] [phone] Mary Trent PA-C [address] [place] 242[address] [place] [address] [place] [address] 07/01/2025 10:30 AM CDT Virtual Visit [facility] [place] [address] [facility] [address] [place] [phone] Mary Trent PA-C [address] [facility] [address] [place] 8[address]45 07/01/2025 11:00 AM CDT Virtual Visit [facility] [place] [address] [facility] [address] [place] [phone] Christina Paz, RD, LD 6401 [facility] [place] 964845 09/20/2025 10:00 AM PAINTER AIRCRAFT Office Visit [facility] - [place] [address] [facility], [address] [place] [phone] Deshawn Veloz MD 6516 [place], [place] [address] documented as of this encounter Visit Diagnoses Diagnosis Hx of obesity Personal history of other specified diseases Overweight (BMI 25.0-29.9) Overweight documented in this encounter Additional Health Concerns Assessment Noted Time PHQ-9 Depression Total Score: 8 02/12/20 25 8:47 AM CDT documented as of this encounter Care Teams Research Professor Relationship Specialty Start Date End Date Cosme Wayne MD [address] [place] [address] 103460 PCP - General Internal Medicine 08/27/22 Cosme Wayne MD [address] [place] [address] Assigned PCP 08/13/21 Deshawn Veloz MD [address] [place] 200485 Neurology 09/24/22 Deshawn Veloz MD [address] [place] 223545 Assigned Neuroscience Provider 10/13/22 Mindy [place] MD [address] [place] 682575 Nephrology 04/22/23 Karine Rangel [address] 9[address] [place], [place] 874285 Pharmacist Pharmacist Senior Sales Operations Analyst 09/07/24 Karine Rangel [address] 9 [place], [place] 885915 Assigned MTM Pharmacist 09/12/24 Devon Hernandez MD [address] [place] 423075 Hematology & Oncology 12/23/24 Mary Trent, PAAllisonC [address] [place] [address] Physician Roller Turner Bariatric 12/23/24 Cal Zelaya PA-C 909 [place], [place] 573545 Physician Roller Turner Gastroenterology 12/28/24 Mary Trent PA-C 6405 [facility] [address] [place] [address] 930925 Assigned Surgical Provider 01/10/25 Cal Zelaya PA-C [address]09 [place], [place] 00014[address] Assigned Gastroenterology Provider 03/12/25 documented as of this encounter
--- OUTSIDE RECORDS SUMMARY | 2025-05-22 16:08 | XMS_ITS | Encounter Summary ---
Author Organization [place] Address [address] [facility] [address] Care Team Providers Care Sustain Engineer Name Role Phone Cosme Wayne MD Unavailable [phone] Cosme Wayne MD Primary Care Provider + Deshawn Veloz MD Unavailable Deshawn Veloz MD Unavailable Mindy [place] MD Unavailable Karine Rangel [facility] Unavailable [phone] Karine Rangel [place] Unavailable [phone] Devon Hernandez MD Unavailable [phone] Mary Trent PA-C Unavailable [phone] Cal Zelaya PA-C Unavailable [phone] Mary Trent PA-C Unavailable [phone] Cal Zelaya PA-C Unavailable [phone] Encounter Details Date Type Department Care Team (Latest Contact Info) Description 05/07/2025 Travel Social History Tobacco Use Types Packs/Day [...] 2 02/11/2025 [facility] - Occupational Stress Questionnaire Answer [...] PM CDT Legal 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 Gender Identity Male 07/22/2021 2:30 PM CDT Sexual Orientation Straight 07/22/2021 2: 30 PM CDT documented as of this encounter Plan of Treatment Upcoming Encounters Date Type Department Care Team (Late st Contact Info) Description 05/28/2025 1:40 PM CDT Therapy Visit [address] [place] [phone] Mary Trent, PAAllisonC [address] [place] [address] [place] [address] [place] [address] 06/04/2025 1:40 PM CDT Therapy Visit [address] [employer] [address] [place] [phone] Mary Trent PA-C [address] [place] [address] 936535 [place] [address] [place] [address] 07/01/2025 10:30 AM CDT Virtual Visit [facility] [place] [address] [facility] [address] [place] [phone] Mary Trent PA-C [address] [place], [place] 4775[address] 07/01/2025 11:00 AM CDT Virtual Visit [facility] [place] [address] [facility] [address] [place] [phone] Christina Paz, RD, LD [address] [place], [place] [address] 09/20/2025 10:00 AM WELDER FITTER HELPER Office Visit [facility] - [place] [address] [facility], [address] [place] [phone] Deshawn Veloz MD [address] [place], [place] 148185 documented as of this encounter Visit Diagnoses Not on filedocumented in this encounter Additional Health Concerns Assessment Noted Time PHQ-9 Depression Total Score: 8 02/12/20 25 8:47 AM CDT documented as of this encounter Care Teams Sustain Engineer Relationship Specialty Start Date End Date Cosme Wayne MD [address] [place] [address] PCP - General Internal Medicine 08/27/22 Cosme Wayne MD [address] [place] [address] 8[address] Assigned PCP 08/13/21 Deshawn Veloz MD [address] [place], [place] 692465 Neurology 09/24/22 Deshawn Veloz MD [address] [place] 920155 Assigned Neuroscience Provider 10/13/22 Mindy [place] MD [address] [place] 934755 Nephrology 04/22/23 Karine Rangel RPH [address] [place] [address] [phone] Pharmacist Pharmacist Business Intelligence Engineer 09/07/24 Karine Rangel RPH [address] [place] [address] 317255 Assigned [place] Pharmacist 09/12/24 Devon Hernandez MD [address] [facility] [place] [address]915 Hematology & Oncology 12/23/24 Mary Trent PA-C [address] [place] 6780[address] Physician Analog Design Engineer Bariatric 12/23/24 Cal Zelaya PA-C [address] [place] [address] 969005 Physician Analog Design Engineer Gastroenterology 12/28/24 Mary Trent PA-C [address] [place] 708805 Assigned Surgical Provider 01/10/25 Cal Zelaya PA-C 9 [place] [address] Assigned Gastroenterology Provider 03/12/25 documented as of this encounter
--- OUTSIDE RECORDS SUMMARY | 2025-05-22 16:09 | XMS_ITS | Clinical Summary ---
Author Organization [facility] Address [address] [place] [phone] Phone Care Team Providers Care Jailer Chief Name Role Phone Cosme Wayne MD Primary Care Provider + Allergies Active Allergy Reactions Criticality Noted Date Comments Amlodipine Swelling Low 12/11/2023 Lisinopril Anaphylaxis High 07/30/2021 unable to breath-gasping for breath-Numbness in face- unable to breath-gasping for breath-Numbness in face- unable to breath-gasping for breath-Numbness in face- Medications busPIRone (BUSPAR) 30 MG tablet Take 30 mg by mouth in the morning and 30 mg in the evening. 3 Active Antacid Calcium 500 MG chewable tablet Chew 500 mg in the morning and 500 mg in the evening. 3 Active amphetamine-dex troamphetamine (ADDERALL) 15 MG tablet Take 15 mg by mouth 1 (one) time each day if needed 1 Active ergocalciferol (VITAMIN D2) 1.25 MG (43919 UT) capsule Take 1 capsule by mouth 1 (one) time per week 3 Active ferrous sulfate 325 (65 Fe) MG tablet Take 325 mg by mouth 1 (one) time each day with breakfast 3 Active folic acid (FOLVITE) 1 MG tablet Take 2 mg by mouth 1 (one) time each day 2 Active QUEtiapine (SEROquel) 100 MG tablet Take 100 mg by mouth every night 2 Active rOPINIRole (REQUIP) 3 MG tablet Take 3 mg by mouth in the morning. 1 Active zolpidem (AMBIEN) 10 MG tablet Take 10 mg by mouth at night if needed Active gabapentin (NEURONTIN) 300 MG capsule Take 600 mg by mouth in the morning and 600 mg in the evening and 600 mg before bedtime. 3 Active tadalafil (CIALIS) 10 MG tablet Take 1 tablet (10 mg total) by mouth 1 (one) time each day if needed for erectile dysfunction 12 tablet 3 4 Active hydrALAZINE (APRESOLINE) 50 MG tablet Take 1 tablet (50 mg total) by mouth in the morning and 1 tablet (50 mg total) in the evening and 1 tablet (50 mg total) before bedtime. 270 tablet 3 4 Active carvedilol (COREG) 25 MG tablet Take 1 tablet (25 mg total) by mouth in the morning and 1 tablet (25 mg total) in the evening. Take with meals. 180 tablet 3 4 Active cloNIDine (CATAPRES) 0.1 MG tablet Take 1 tablet (0.1 mg total) by mouth in the morning and 1 tablet (0.1 mg total) in the evening. 180 tablet 3 4 Active Immunizations Immunization Administration Dates Next Due H1N1 All Forms 10/25/2009 H1N1 Inj Preservative Free 10/25/2009 Hep A, Unspecified 07/21/2001 Hepatitis B 10/27/2001,07/21/2001 Influenza Recombinant Magnus valent Injectable Preservative Free 07/27/2021 Influenza TIV (IM) 08/10/2010, 9,09/10/2008,2006,08/20/2006 Influenza, Injectable, Quadr ivalent, Preservative Free 07/17/2017 Influenza, Unspecified 07/02/2022 MMR 11/29/1994 TD Preservative Free 04/15/2004 Td 11/29/1994 Tdap 07/27/2021 Zoster Recombinant 01/08/2023,10/16/2022 Social History Tobacco Use Types Packs/Day Years Used Date Smoking Tobacco: Former Cigarettes Q uit: 2005 Passive Smoke Exposure: Past Smokeless Tobacco: Never Tobacco Cessation:Counseling Given: No Alcohol Use Standard Drinks/Week Comments Yes 7 (1 standard drink = 0.6 oz pur e alcohol) 1-2 drinks per day Sex and Gender Information Value Date Recorded Sex Assigned at Not on file Legal Sex Male 2:15 PM MDT Gender Identity Not on file Sexual Orientation Not on file Last Filed Vital Signs Vital Sign Reading Time Taken Comments Blood Pressure 155/94 01/20/2024 3:11 PM CDT Pulse 73 01/20/2024 2:28 PM CDT Temperature 36.5 C (97.7 F) 01/20/2024 2:28 PM CDT Respiratory Rate - - Oxygen Saturation - - Inhaled Oxygen Concentration - - Weight 116 kg (255 lb 6.4 oz) 01/20/2024 2:28 PM CDT Height 182.9 cm (6') 01/20/2024 2:28 PM CDT Body Mass Index 34.64 01/20/2024 2:28 PM CDT Plan of Treatment Health Maintenance Due Date Last Done Comments COVID-19 Vaccine (2023-2 5 season) 2024 11/16/2021, 02/09/2021, 01/19/2021 Influenza Vaccine (#1) 2025 , 07/02/2022, 07/27/2021, Additional history exists Insurance PM INTERFACED INSURANCE PM INTER[employer] INSURANCE Care Teams Jailer Chief Relationship Specialty Start Date End Date Cosme Wayne MD [address] [place] [address] PCP - General 08/14/23
--- OUTSIDE RECORDS SUMMARY | 2025-05-22 16:09 | XMS_ITS | Encounter Summary ---
Author Organization [place] Address [address] [facility] [place] [address] Care Team Providers Care Die Lay Out Worker Name Role Phone Cosme Wayne MD Unavailable [phone] Cosme Wayne MD Primary Care Provider + Deshawn Veloz MD Unavailable Deshawn Veloz MD Unavailable Mindy Harrison MD Unavailable Karine Rangel [facility] Unavailable [phone] Karine Rangel [facility] Unavailable [phone] Devon Hernandez MD Unavailable [phone] Mary TrentC Unavailable [phone] Cal Zelaya-Baldemar Unavailable [phone] Mary Trent-Baldemar Unavailable [phone] Cal Zelaya-Baldemar Unavailable [phone] Devon Hernandez MD Unavailable [phone] Encounter Details Date Type Department Care Team (Latest Contact Info) Description 05/17/2025 Travel Social History Tobacco Use Types Packs/Day [...] Answer Date Recorded PHQ-2 Score 2 02/11/2025 [facility] - Occupational Stress Questionnaire Answer Date Recorded [...] in an abandoned building, in an overnight nursing home, or couch-surfing.) Yes 11/29/2024 Are you [...] PM CDT Legal Sex Male 3:12 AM LOAN COORDINATOR Gender Identity Male 07/22/2021 2:30 PM CDT Sexual Orientation Straight 07/22/2021 2: 30 PM CDT documented as of this encounter Plan of Treatment Upcoming Encounters Date Type Department Care Team (Late st Contact Info) Description 05/28/2025 1:40 PM CDT Therapy Visit [facility] [id number] [place] [address] [place] [address] [phone] Mary Trent PA-C [address] [place] [phone] [place] [address] [place] [address] 06/04/2025 1:40 PM CDT Therapy Visit [facility] [address] [facility] [address] [place] [phone] Mary Trent PA-C [address] [place] [address] [phone] [place] [address] [place] [address] [phone] 07/01/2025 10:30 AM CDT Virtual Visit [facility] [place] [address] [facility] [address] [place] [phone] Mary Trent PA-C [address] [place] [phone] 07/01/2025 11:00 AM CDT Virtual Visit [facility] [place] [address] [facility] [address] [place] [phone] Christina Paz, RD, LD [address] [place] [place] [phone] 09/20/2025 10:00 AM LOAN COORDINATOR Office Visit [facility] - [place] [address] [facility] [address], [address] [place] [phone] Deshawn Veloz MD [address], [place] 5[address] documented as of this encounter Visit Diagnoses Not on filedocumented in this encounter Additional Health Concerns Assessment Noted Time PHQ-9 Depression Total Score: 8 02/12/20 25 8:47 AM CDT documented as of this encounter Care Teams Die Lay Out Worker Relationship Specialty Start Date End Date Cosme Wayne MD [address] [place] [address] PCP - General Internal Medicine 08/27/22 Cosme Wayne MD [address] [place] [address] Assigned PCP 08/13/21 Deshawn Veloz MD [address] [address] Neurology 09/24/22 Deshawn Veloz MD [address] [address] Assigned Neuroscience Provider 10/13/22 Mindy Harrison MD [address] [address] Nephrology 04/22/23 Karine Rangel RPH [address] [place] [address] [phone] Pharmacist Pharmacist Lard Mixer 09/07/24 Karine Rangel Nicolle [address] [place] [address] [phone] Assigned MTM Pharmacist 09/12/24 Devon Hernandez MD [address] [address] Hematology & Oncology 12/23/24 Mary Trent PA-C [address] [place] [address] Physician Motor Equipment Captain Bariatric 12/23/24 Cal Zelaya PA-C [address] [place] [phone] Physician Motor Equipment Captain Gastroenterology 12/28/24 Mary Trent PA-C [address] [place] [address] Assigned Surgical Provider 01/10/25 Cal Zelaya PA-C [address] [place] [address] Assigned Gastroenterology Provider 03/12/25 Devon Hernandez MD [address] [address] Assigned Cancer Care Provider 05/12/25 documented as of this encounter
--- NOTE | 2025-05-22 16:15 | ED.WOUNDLAC ---
HPI - Wound/Laceration General Date Seen: 05/22/25 Chief Complaint: Laceration/Wound Stated Complaint: Right Middle finger laceration Time Seen by Provider: 05/22/25 14:37 Source: patient Mode of arrival: ambulatory Limitations: no limitations History of Present Illness HPI narrative: Patient is a 54-year-old male presenting to the emergency department for laceration to his right middle finger. Laceration is to the volar aspect in starts at the tip of the finger wraps around to the D IP comes back up the other side. Is about 8 cm in length. He states he got caught in a log splitter between the log. No other injuries noted Related Data Home Medications ?Medication ?Instructions ?Recorded ?Confirmed Hydroxyzine 50 mg PO PRN 05/22/25 alprazolam 0.5 mg tablet 0.5 mg PO BID-TID PRN 05/22/25 05/22/25 aspirin 81 mg tablet 81 mg PO DAILY 05/22/25 05/22/25 atorvastatin 40 mg tablet 40 mg PO DAILY 05/22/25 05/22/25 buspirone 30 mg tablet 30 mg PO BID 05/22/25 05/22/25 carvedilol 6.25 mg tablet 6.25 mg PO BID 05/22/25 05/22/25 cyanocobalamin (vitamin B-12) 1,000 mcg PO DAILY 05/22/25 05/22/25 1,000 mcg capsule escitalopram oxalate 10 mg tablet 10 mg PO DAILY 05/22/25 05/22/25 magnesium glycinate 100 mg (as 100 mg PO BID 05/22/25 05/22/25 glycinate) tablet (Mag Glycinate) metformin 500 mg tablet 500 mg PO BID 05/22/25 05/22/25 naltrexone 50 mg tablet 25 mg PO BID 05/22/25 05/22/25 omeprazole 20 mg capsule,delayed 20 mg PO DAILY 05/22/25 05/22/25 release pregabalin 200 mg capsule (Lyrica) 200 mg PO TID 05/22/25 05/22/25 quetiapine 100 mg PO .PM 05/22/25 05/22/25 ropinirole 3 mg PO .pm 05/22/25 05/22/25 tamsulosin 0.4 mg capsule (Flomax) 0.4 mg PO DAILY 05/22/25 05/22/25 thiamine mononitrate (vit B1) 100 100 mg PO DAILY 05/22/25 05/22/25 mg tablet zolpidem 10 mg tablet (Ambien) 10 mg PO QHS PRN 05/22/25 05/22/25 Allergies Allergy/AdvReac Type Severity Reaction Status Date / Time amlodipine Allergy Severe swelling Verified 05/22/25 14:27 lisinopril Allergy Severe Anaphylaxis Verified 05/22/25 14:27 Exam Narrative: Exam Narrative: Const: Well-nourished, Well-developed, in mild distress Eyes: PERRL, no conjunctival injection, and symmetrical lids HENT: Atraumatic external nose and ears. Moist mucous membranes. MSK:Extremities w/o deformity, Normal Active ROM Skin: Warm, Dry. 8 cm laceration to the right middle finger on the volar aspect starting near the tip of the finger, down wrapping around the the D IP and up to the other side going close the tip again. About 1.5 cm in size of scan at the top holding it together. Underlying soft tissue was holding the skin down Neuro: Normal Muscle tone, No focal neurological deficits. Psych: Awake, Alert, & Oriented x3. Appropriate mood and affect. Const: Vital Signs, click to edit/add: Vital Signs - 24 hr 05/22/25 14:31 Temperature 98.4 F Pulse Rate [Pulse Oximeter] 64 Respiratory Rate 16 Blood Pressure [Ri ght Upper Arm] 128/113 H Pulse Oximetry 96 Oxygen Delivery Me thod Room Air Course Vital Signs Vital signs: Initial Vital Signs Temperature 98.4 F 05/22/25 14:31 Temperature Source Temporal Artery Scan 05/22/25 14:31 Pulse Rate 64 05/22/25 14:31 Respiratory Rate 16 05/22/25 14:31 Blood Pressure 128/113 H 05/22/25 14:31 Blood Pressure Mean 118 H 05/22/25 14:31 Blood Pressure Position High-Fowlers 05/22/25 14:31 Pulse Oximetry 96 05/22/25 14:31 Oxygen Delivery Method Room Air 05/22/25 14:31 Vital Signs Temperature 98.4 F 05/22/25 14:31 Pulse Rate 64 05/22/25 14:31 Respiratory Rate 16 05/22/25 14:31 Blood Pressure 128/113 H 05/22/25 14:31 Pulse Oximetry 96 05/22/25 14:31 Oxygen Delivery Method Room Air 05/22/25 14:31 Temperature 98.4 F 05/22/25 14:31 Pulse Rate 64 05/22/25 14:31 Respiratory Rate 16 05/22/25 14:31 Blood Pressure 128/113 H 05/22/25 14:31 Pulse Oximetry 96 05/22/25 14:31 Oxygen Delivery Method Room Air 05/22/25 14:31 Medications Administered Medications: Discontinued Medications Generic Name Dose Route Start Last Admin Trade Name Courtney PRN Reason Stop Dose Admin Lorazepam 1 mg 05/22/25 14:48 05/22/25 14:50 Lorazepam 1 Mg Tablet PO 05/22/25 14:49 1 mg ONCE ONE Administration MDM - Wound/Laceration MDM Narrative Medical decision making narrative: Patient is a 54-year-old male presenting for laceration to his right middle finger. Patient is having anxiety given Ativan. Did do an x-ray showing a distal tuft fracture. No further workup of his fracture is indicated. He tolerated the procedure well for the laceration repair. The was a thin flap of skin at the base of the laceration that may not fully recover but the rest of the laceration looked well. Had some difficulty getting the wound edges fully approximated due to the size and tensile nature of the wound. Has full range of motion of the finger. Neurovascular intact. Will put him on prophylactic antibiotics and give him oxycodone for pain control. He will be discharged. Medications sent via instymeds. Discharge Plan Discharge Clinical Impression: Laceration, Closed fracture of tuft of distal phalanx of finger Patient Disposition: Home, Self-Care Condition: Stable Instructions: Finger Fracture (ED), Finger Laceration (ED) Additional Instructions: Follow-up with your primary care provider or urgent care in the next 7 days to have the 20] sutures removed. For next 6 months, once sutures are removed, whenever you go outside put a dab of sunscreen over the laceration site to improve scar appearance. Topical antibiotics are not necessary at this time. Patient can shower but do not submerge the laceration until sutures are removed. Also talked to your primary care provider to make sure the finger fracture is healing appropriate. set up technician antibiotics and oxycodone at instymeds Prescriptions: No Action naltrexone 50 mg tablet 25 mg PO BID carvedilol 6.25 mg tablet 6.25 mg PO BID Rx Instructions: must administer with a meal/food omeprazole 20 mg capsule,delayed release(DR/EC) 20 mg PO DAILY metformin 500 mg tablet 500 mg PO BID pregabalin [Lyrica] 200 mg capsule 200 mg PO TID Mag Glycinate 100 mg tablet 100 mg PO BID Hydroxyzine 50 mg PO PRN quetiapine 100 mg PO .PM zolpidem [Ambien] 10 mg tablet 10 mg PO QHS PRN atorvastatin 40 mg tablet 40 mg PO DAILY escitalopram oxalate 10 mg tablet 10 mg PO DAILY tamsulosin [Flomax] 0.4 mg capsule 0.4 mg PO DAILY thiamine mononitrate (vit B1) 100 mg tablet 100 mg PO DAILY cyanocobalamin (vitamin B-12) 1,000 mcg capsule 1,000 mcg PO DAILY buspirone 30 mg tablet 30 mg PO BID ropinirole 3 mg PO .pm alprazolam 0.5 mg tablet 0.5 mg PO BID-TID PRN aspirin 81 mg tablet 81 mg PO DAILY Follow Up/Referrals: Provider,Not a Local [Primary Care Provider, Family Practice] Stand Alone Forms: [facility] Info Instructions Procedures Laceration right middle finger: Site: hand (Middle finger) Side (If applicable): right Size (cm): 8 Description: stellate and irregular Depth: simple, single layer Local Anesthetic: lidocaine 1% (Digital nerve block) Amount of anesthesia used (mL): 6 Pre-repair: wound explored, irrigated extensively, deep structures intact and extensive debridement Skin layer closed with: nylon Size (cm): 4-0 Number of sutures: 20 Technique: simple, interrupted
== END 2025-05-22 16:36 | disposition home or self-care (01) ==
PROVIDERS: Emergency Provider Student in an Organized Health Care Education/Training Program
DX: S62.633B Displaced fracture of distal phalanx of left middle finger, initial encounter for open fracture (principal); W31.89XA Contact with other specified machinery, initial encounter
CPT/HCPCS: 12004; 73140; 99283; A9270